=== PATIENT | female | born 1990 | race Caucasian/White ===

== ENCOUNTER 2017-03-13 18:54 | Emergency (ER) | payer OTHER ==
[2017-03-13 19:14] VITALS: BP 125/70; PULSE 77; RESP 18; TEMP 98.6
--- NOTE | 2017-03-13 20:14 | ED ---
Wound/Laceration HPI - General Chief Complaint: Wound/Laceration Stated Complaint: laceration Time Seen by Provider: 03/13/17 19:38 Source: patient Mode of arrival: ambulatory Limitations: no limitations - Related Data Home Medications Medication Instructions Recorded Confirmed Aspirin 81 mg PO DAILY 03/08/14 03/13/17 Allergies Allergy/AdvReac Type Severity Reaction Status Date / Time No Known Allergies Allergy Verified 10/11/14 08:17 Review of Systems ROS Statement: Those systems with pertinent positive or pertinent negative responses have been documented in the HPI. ROS Other: All systems not noted in ROS Statement are negative. Past Medical History Past Medical History: Chest Pain / Angina Additional Past Medical History / Comment(s): tetrology of fallot as , cardiac stent in jul 26, 2011 for reasons of having chest pain History of Any Multi-Drug Resistant Organisms: None Reported Past Surgical History: Heart Catheterization With Stent, Orthopedic Surgery Additional Past Surgical History / Comment(s): heart surgery repair of tetralogy of fallot--infancy (9 days). heart surgery with valve repair at 18 mths. cardiac cath with stent at 2010. left elbow surgery--at 6 yrs of age. oral surgery--at 5 yrs Past Anesthesia/Blood Transfusion Reactions: No Reported Reaction Date of Last Stent Placement:: jul 26, 2011 Past Psychological History: No Psychological Hx Reported Smoking Status: Current every day smoker Past Alcohol Use History: None Reported Past Drug Use History: None Reported - Past Family History Father Family Medical History: No Reported History Additional Family Medical History / Comment(s): back pain Mother Family Medical History: Cancer, Diabetes Mellitus, Hypertension Additional Family Medical History / Comment(s): MRSA, rt below knee amputation General Exam Limitations: no limitations Course Vital Signs 03/13/17 19:10 Temperature 98.6 F Pulse Rate 77 Respiratory 18 Rate Blood Pressure 125/70 O2 Sat by Pulse 95 Oximetry Procedures - Laceration Laceration #1 Site: lower extremity (right coburn) Size (cm): 4 Description: linear Depth: simple, single layer Anesthetic Used: lidocaine 1% Anesthesia Technique: local infiltration Amount (mls): 4 Pre-repair: wound explored, irrigated extensively Type of Sutures: nylon, vicryl Size of Sutures: 5-0 Number of Sutures: 6 Technique: simple, interrupted Patient Tolerated Procedure: well, no complications Disposition Clinical Impression: Laceration of leg, left Disposition: HOME SELF-CARE Condition: Good Instructions: Laceration (ED), Care For Your Stitches (ED) Additional Instructions: Please return to the emergency room in 8-10 days to have sutures removed. Please leave wound covered for the first 24-48 hours and then leave open to air after that time. Please use clean soap and water to clean the suture area to prevent scabbing over the top of your sutures. Please watch for any signs of infection which may include but not limited to increased pain, swelling, redness , fever or chills. Please return to the emergency room if any signs of infection do occur. Please return to the emergency room for any other concerns or complications. Referrals: Brian Cadena DO [Primary Care Provider] - 1-2 days Time of Disposition: 20:13
== END 2017-03-13 20:27 | disposition home or self-care (01) ==
LOC: EC 18:54
DX: S81.812A Laceration without foreign body, left lower leg, initial encounter (principal); W22.03XA Walked into furniture, initial encounter; I20.9 Angina pectoris, unspecified; Z95.5 Presence of coronary angioplasty implant and graft; Z95.2 Presence of prosthetic heart valve; F17.200 Nicotine dependence, unspecified, uncomplicated; Z79.82 Long term (current) use of aspirin
CPT/HCPCS: 12002; 99282

== ENCOUNTER 2017-07-16 12:31 | Inpatient (IN) | payer MEDICARE, OTHER ==
[2017-07-16] MEDS ORDERED: ACETAMINOPHEN IV (For NPO) 1,000 MG in EMPTY BAG 1 BAG IVPB STA (12:50)
[2017-07-16] MEDS ORDERED: ONDANSETRON 4 MG/2 ML VIAL IVP STA (12:50)
--- NOTE | 2017-07-16 12:52 | ED ---
General Adult HPI <Silvestre He - Last Filed: 07/16/17 15:55> - General Source: patient, RN notes reviewed Mode of arrival: ambulatory Limitations: no limitations <Norman Hawkins - Last Filed: 07/16/17 15:58> - General Chief complaint: Abdominal Pain Stated complaint: Abd Pain Time Seen by Provider: 07/16/17 12:45 - History of Present Illness Initial comments: Patient 26-year-old female who presents emergency room today with chief point left-sided abdominal pain over the last 4 days. She describes it as a "sharp" type pain. Patient states is localized more to the left upper quadrant. Patient states never had pain similar to this in the past. She doesn't feeling nauseated. She states she's had some looser bowel movements. She denies any other points her symptoms. Patient denies any recent fever, chills, shortness of breath, chest pain, back pain, vomiting, numbness or tingling, dysuria or hematuria, constipation or diarrhea, headaches or visual changes, or any other complaints. (Norman Hawkins) - Related Data Home Medications Medication Instructions Recorded Confirmed Aspirin 81 mg PO DAILY 03/08/14 07/16/17 Allergies Allergy/AdvReac Type Severity Reaction Status Date / Time No Known Allergies Allergy Verified 07/16/17 13:29 Review of Systems ROS Other: All systems not noted in ROS Statement are negative. <Silvestre He - Last Filed: 07/16/17 15:55> ROS Other: All systems not noted in ROS Statement are negative. <Norman Hawkins - Last Filed: 07/16/17 15:58> ROS Statement: Those systems with pertinent positive or pertinent negative responses have been documented in the HPI. Past Medical History Past Medical History: Chest Pain / Angina Additional Past Medical History / Comment(s): tetrology of fallot as infant, cardiac stent in jul 26, 2011 for reasons of having chest pain History of Any Multi-Drug Resistant Organisms: None Reported Past Surgical History: Heart Catheterization With Stent, Orthopedic Surgery Additional Past Surgical History / Comment(s): heart surgery repair of tetralogy of fallot--infancy (9 days). heart surgery with valve repair at 18 mths. cardiac cath with stent at 2010. left elbow surgery--at 6 yrs of age. oral surgery--at 5 yrs Past Anesthesia/Blood Transfusion Reactions: No Reported Reaction Date of Last Stent Placement:: jul 26, 2011 Past Psychological History: No Psychological Hx Reported Smoking Status: Current every day smoker Past Alcohol Use History: None Reported Past Drug Use History: None Reported - Past Family History Father Family Medical History: No Reported History Additional Family Medical History / Comment(s): back pain Mother Family Medical History: Cancer, Diabetes Mellitus, Hypertension Additional Family Medical History / Comment(s): MRSA, rt below knee amputation <Norman Hawkins - Last Filed: 07/16/17 15:58> General Exam <Silvestre He - Last Filed: 07/16/17 15:55> Limitations: no limitations <Norman Hawkins - Last Filed: 07/16/17 15:58> - General Exam Comments Initial Comments: General: The patient is awake and alert, in no distress, and does not appear acutely ill. Eye: Pupils are equal, round and reactive to light, extra-ocular movements are intact. No nystagmus. There is normal conjunctiva bilaterally. No signs of icterus. Ears, nose, mouth and throat: There are moist mucous membranes and no oral lesions. Neck: The neck is supple, there is no tenderness or JVD. Cardiovascular: There is a regular rate and rhythm. No murmur, rub or gallop is appreciated. Respiratory: Lungs are clear to auscultation, respirations are non-labored, breath sounds are equal. No wheezes, stridor, rales, or rhonchi. Gastrointestinal: Normal appearance of the abdomen. Normal bowel sounds. Soft on palpation. Patient does have tenderness left upper quadrant. No rebound tenderness or guarding. No CVA tenderness. Musculoskeletal: Normal ROM, no tenderness. Strength 5/5. Sensation intact. Pulses equal bilaterally 2+. Neurological: A&O x 3. CN II-XII intact, There are no obvious motor or sensory deficits. Coordination appears grossly intact. Speech is normal. Skin: Skin is warm and dry and no rashes or lesions are noted. Psychiatric: Cooperative, appropriate mood & affect, normal judgment. (Norman Hawkins) Course <Silvestre He - Last Filed: 07/16/17 15:55> <Norman Hawkins - Last Filed: 07/16/17 15:58> Vital Signs 07/16/17 07/16/17 12:32 15:15 Temperature 98.8 F Pulse Rate 104 H 65 Respiratory 18 18 Rate Blood Pressure 131/80 111/67 O2 Sat by Pulse 98 98 Oximetry - Reevaluation(s) Reevaluation #1: 07/16/17 15:55 Patient was reevaluated by myself, Dr. He. Patient is resting comfortably in bed. Mild discomfort left upper abdomen on exam. Patient is updated on results and plan. 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 Case was discussed in detail with Dr. Stewart, who will admit for Dr. Melgar.he does request Zosyn and Vanco. Patient does meet sepsis criteria diagnosed at 1555. (Silvestre He) Medical Decision Making - Lab Data Result diagrams: 07/16/17 13:00 07/16/17 13:00 <Silvestre He - Last Filed: 07/16/17 15:55> - Lab Data Result diagrams: 07/16/17 13:00 07/16/17 13:00 <Norman Hawkins - Last Filed: 07/16/17 15:58> - Lab Data Lab Results 07/16/17 07/16/17 07/16/17 Range/Units 13:00 13:00 13:00 WBC 36.7 H* (3.8-10.6) k/uL RBC 4.61 (3.80-5.40) m/uL Hgb 14.5 (11.4-16.0) gm/dL Hct 44.8 (34.0-46.0) % MCV 97.2 (80.0-100.0) fL MCH 31.4 (25.0-35.0) pg MCHC 32.3 (31.0-37.0) g/dL RDW 12.8 (11.5-15.5) % Plt Count 390 (150-450) k/uL Neutrophils % 87 % Lymphocytes % 5 % Monocytes % 6 % Eosinophils % 1 % Basophils % 1 % Neutrophils # 31.8 H (1.3-7.7) k/uL Lymphocytes # 1.7 (1.0-4.8) k/uL Monocytes # 2.1 H (0-1.0) k/uL Eosinophils # 0.3 (0-0.7) k/uL Basophils # 0.4 H (0-0.2) k/uL Manual Slide Review Performed Toxic Granulation Present Toxic Vacuolation Present Sodium 139 (137-145) mmol/L Potassium 3.4 L (3.5-5.1) mmol/L Chloride 103 (98-107) mmol/L Carbon Dioxide 22 (22-30) mmol/L Anion Gap 14 mmol/L BUN 4 L (7-17) mg/dL Creatinine 0.82 (0.52-1.04) mg/dL Est GFR (MDRD) Af Amer >60 (>60 ml/min/1.73 sqM) Est GFR (MDRD) Non-Af >60 (>60 ml/min/1.73 sqM) Glucose 115 H (74-99) mg/dL Calcium 9.5 (8.4-10.2) mg/dL Total Bilirubin 0.4 (0.2-1.3) mg/dL AST 16 (14-36) U/L ALT 27 (9-52) U/L Alkaline Phosphatase 100 (38-126) U/L Total Protein 8.3 H (6.3-8.2) g/dL Albumin 4.4 (3.5-5.0) g/dL Amylase <30 L (30-110) U/L Lipase 30 (23-300) U/L Urine Color Urine Appearance (Clear) Urine pH (5.0-8.0) Ur Specific [place] (1.001-1.035) Urine Protein (Negative) Urine Glucose (UA) (Negative) Urine Ketones (Negative) Urine Blood (Negative) Urine Nitrite (Negative) Urine Bilirubin (Negative) Urine Urobilinogen (<2.0) mg/dL Ur Leukocyte Esterase (Negative) Urine RBC (0-5) /hpf Urine WBC (0-5) /hpf Ur Squamous Epith Cells (0-4) /hpf Amorphous Sediment (None) /hpf Urine Bacteria (None) /hpf Urine Mucus (None) /hpf Urine HCG, Qual Not Detected (Not Detectd) 07/16/17 Range/Units 13:00 WBC (3.8-10.6) k/uL RBC (3.80-5.40) m/uL Hgb (11.4-16.0) gm/dL Hct (34.0-46.0) % MCV (80.0-100.0) fL MCH (25.0-35.0) pg MCHC (31.0-37.0) g/dL RDW (11.5-15.5) % Plt Count (150-450) k/uL Neutrophils % % Lymphocytes % % Monocytes % % Eosinophils % % Basophils % % Neutrophils # (1.3-7.7) k/uL Lymphocytes # (1.0-4.8) k/uL Monocytes # (0-1.0) k/uL Eosinophils # (0-0.7) k/uL Basophils # (0-0.2) k/uL Manual Slide Review Toxic Granulation Toxic Vacuolation Sodium (137-145) mmol/L Potassium (3.5-5.1) mmol/L Chloride (98-107) mmol/L Carbon Dioxide (22-30) mmol/L Anion Gap mmol/L BUN (7-17) mg/dL Creatinine (0.52-1.04) mg/dL Est GFR (MDRD) Af Amer (>60 ml/min/1.73 sqM) Est GFR (MDRD) Non-Af (>60 ml/min/1.73 sqM) Glucose (74-99) mg/dL Calcium (8.4-10.2) mg/dL Total Bilirubin (0.2-1.3) mg/dL AST (14-36) U/L ALT (9-52) U/L Alkaline Phosphatase (38-126) U/L Total Protein (6.3-8.2) g/dL Albumin (3.5-5.0) g/dL Amylase (30-110) U/L Lipase (23-300) U/L Urine Color Yellow Urine Appearance Turbid H (Clear) Urine pH 6.0 (5.0-8.0) Ur Specific [place] 1.036 H (1.001-1.035) Urine Protein 2+ H (Negative) Urine Glucose (UA) Negative (Negative) Urine Ketones Negative (Negative) Urine Blood Small H (Negative) Urine Nitrite Negative (Negative) Urine Bilirubin 1+ H (Negative) Urine Urobilinogen 3.0 (<2.0) mg/dL Ur Leukocyte Esterase Negative (Negative) Urine RBC 1 (0-5) /hpf Urine WBC 1 (0-5) /hpf Ur Squamous Epith Cells 1 (0-4) /hpf Amorphous Sediment Rare H (None) /hpf Urine Bacteria Rare H (None) /hpf Urine Mucus Rare H (None) /hpf Urine HCG, Qual (Not Detectd) Disposition <Silvestre He - Last Filed: 07/16/17 15:55> Time of Disposition: 15:58 <Norman Hawkins - Last Filed: 07/16/17 15:58> Clinical Impression: Colitis, Leukocytosis Disposition: ADMITTED IP TO THIS HOSP Condition: Stable Referrals: Brian Cadena DO [Primary Care Provider] - 1-2 days
[2017-07-16 13:18] LABS: Basophils # (A) 0.4 k/uL (0-0.2); Basophils % (A) 1 %; CH 32.2; CHCM 33.3; Eosinophils # (A) 0.3 k/uL (0-0.7); Eosinophils % (A) 1 %; HCT 44.8 % (34.0-46.0); HDW 2.48; HGB 14.5 gm/dL (11.4-16.0); Luc # (Auto) 0.51; Luc % (Auto) 1; Lymphocytes # (A) 1.7 k/uL (1.0-4.8); Lymphocytes % (A) 5 %; MCH 31.4 pg (25.0-35.0); MCHC 32.3 g/dL (31.0-37.0); MCV 97.2 fL (80.0-100.0); Mean Platelet Volume 6.5; Monocytes # (A) 2.1 k/uL (0-1.0); Monocytes % (A) 6 %; Neutrophils # (A) 31.8 k/uL (1.3-7.7); Neutrophils % (A) 87 %; RBC 4.61 m/uL (3.80-5.40); RDW 12.8 % (11.5-15.5); WBC (Perox) 33.62
--- NOTE | 2017-07-16 13:18 | XR ---
EXAMINATION TYPE: XR KUB DATE OF EXAM: 07/16/2017 1:11 PM CLINICAL HISTORY: Abdominal pain for 5 days TECHNIQUE: Single supine KUB image of the abdomen is obtained. COMPARISON: None. FINDINGS: Scattered gas is seen in non-distended small bowel loops. Overall there is a possibility of gas within the upper abdomen. Gas and fecal material is seen in non-distended colon. Dystrophic calc ifications are seen within the right lateral pelvis, likely from degenerative fibroids. No abnormal c alcifications are seen within the abdomen to indicate nephrolithiasis or cholelithiasis. Lung bases a re clear and the osseous structures are intact. IMPRESSION: Nonspecific paucity of bowel gas with no radiographic evidence of obstruction.
[2017-07-16 13:21] LABS: ALT 27 U/L (9-52); AST 16 U/L (14-36); Alkaline Phosphatase 100 U/L (38-126); Amylase <30 U/L (30-110); Anion Gap 14 mmol/L; Blood Urea Nitrogen 4 mg/dL (7-17); Calcium 9.5 mg/dL (8.4-10.2); Carbon Dioxide 22 mmol/L (22-30); Chloride 103 mmol/L (98-107); Glucose 115 mg/dL (74-99); Non-African American GFR(MDRD) >60 (>60 ml/min/1.73 sqM); Potassium 3.4 mmol/L (3.5-5.1); Sodium 139 mmol/L (137-145); Total Bilirubin 0.4 mg/dL (0.2-1.3); Total Protein 8.3 g/dL (6.3-8.2)
[2017-07-16 13:23] LABS: WBC 36.7 k/uL (3.8-10.6)
[2017-07-16 13:54] LABS: Amorphous Sediment,Urine Rare /hpf; Appearance,Urine Turbid (Clear); Bacteria,Urine Rare /hpf; Bilirubin,Urine 1+ (Negative); Glucose,Urine (UA) Negative (Negative); Ketones,Urine Negative (Negative); Leukocyte Esterase,Urine Negative (Negative); Mucus,Urine Rare /hpf; Nitrite,Urine Negative (Negative); Particle Count 2297; Protein,Urine 2+ (Negative); RBC,Urine 1 /hpf (0-5); Specific Gravity,Urine 1.036 (1.001-1.035); Squamous Epithelial Cell,Urine 1 /hpf (0-4); UA Billing (MACRO vs. MICRO) MICRO; WBC,Urine 1 /hpf (0-5)
[2017-07-16] MEDS ORDERED: RX INFO: IV CONTRAST WAS GIVEN 1 EACH MISC MISCELLANE PRN (13:57)
[2017-07-16 14:04] LABS: Manual Review Performed; Toxic Granulation Present; Toxic Vacuolation Present
--- NOTE | 2017-07-16 15:05 | XR ---
EXAMINATION TYPE: XR chest 2V DATE OF EXAM: 07/16/2017 COMPARISON: 11/08/2005 HISTORY: Left-sided abdominal pain. History of tetralogy of Fallot. TECHNIQUE: Frontal and lateral views of the chest are obtained. FINDINGS: There is no focal air space opacity, pleural effusion, or pneumothorax seen. Median shelton otomy wires and endovascular stent are present. Stent has been placed in the interim. The cardiac benedict houette size is within normal limits. The osseous structures are intact. IMPRESSION: No acute cardiopulmonary process.
--- NOTE | 2017-07-16 15:16 | CT ---
EXAMINATION TYPE: CT abdomen pelvis w con DATE OF EXAM: 07/16/2017 COMPARISON: Plain film same date HISTORY: Left sided pain for [address] DLP: 473.2 mGycm Automated exposure control for dose reduction was used. TECHNIQUE: Helical acquisition of images from the lung bases through the pelvis have been completed. CONTRAST: Performed without Oral Contrast and with IV Contrast, patient injected with 100 mL of Omnipaque 300. FINDINGS: LUNG BASES: No significant abnormality is appreciated. AORTA: No significant abnormality is appreciated. LIVER/GB: No significant abnormality is evident within the gallbladder. Anterior aspect of the left l obe of liver shows a focal area of low-attenuation and measures approximately 2.8 x 2.5 cm in size.. PANCREAS: No significant abnormality is seen. SPLEEN: Spleen is absent. ADRENALS: No significant abnormality is seen. KIDNEYS: No significant abnormality is seen. REPRODUCTIVE ORGANS: Left ovarian cyst is suspected measuring approximately 18 mm. BOWEL: Abnormal thickening of the colon is noted, there is suggestion of pericolonic inflammatory ch geovany and there is fluid-filled appearance of the transverse colon. Transverse colon is deep within th e pelvis. FREE AIR: No Free Air visible. ASCITES: None visible. PELVIC ADENOPATHY: None visualized. RETROPERITONEAL ADENOPATHY: No Retroperitoneal Adenopathy visible. URINARY BLADDER: No significant abnormality is seen. OSSEOUS STRUCTURES: No significant abnormality is seen. IMPRESSION: CORRELATE FOR COLITIS. CORRELATE FOR SPLENECTOMY AND PRIOR SURGERY VERSUS ABSENT SPLEEN. INDETERMINAT E LOW-ATTENUATION FOCUS WITHIN THE LIVER OF QUESTIONABLE CLINICAL SIGNIFICANCE, LIVER ULTRASOUND OR M RI MAY BE OF BENEFIT.
[2017-07-16] MEDS ORDERED: VANCOMYCIN IV PER PHARMACY 1 EACH MISC MISCELLANE PRN (15:57)
[2017-07-16] MEDS ORDERED: PIPERACILLIN-TAZOBACTAM 3.375 GM in DEXTROSE/WATER 1 50ML.BAG IVPB STA (15:57)
[2017-07-16] MEDS ORDERED: NALOXONE 0.4 MG/ML 1 ML VIAL IV PRN (15:59)
[2017-07-16] MEDS ORDERED: HYDROmorphone 1 MG/ML 1 ML SYRINGE IVP PRN (15:59)
[2017-07-16] MEDS ORDERED: VANCOMYCIN 1,750 MG in SODIUM CHLORIDE 0.9% 250 ML IVPB ONE (20:00)
[2017-07-16] MEDS: ONDANSETRON 4 MG/2 ML VIAL IVP PRN (20:30)
[2017-07-16] MEDS: PIPERACILLIN-TAZOBACTAM 3.375 GM in DEXTROSE/WATER 1 50ML.BAG IVPB SCH (23:30)
[2017-07-17] MEDS: ACETAMINOPHEN TAB 325 MG TAB PO PRN ×2 (02:32→15:29)
[2017-07-17] MEDS ORDERED: VANCOMYCIN 1,250 MG in SODIUM CHLORIDE 0.9% 250 ML IVPB SCH ×2 (04:00→16:00)
[2017-07-17 06:41] LABS: Basophils # (A) 0.1 k/uL (0-0.2); Basophils % (A) 0 %; CH 31.9; CHCM 32.7; Eosinophils # (A) 0.3 k/uL (0-0.7); Eosinophils % (A) 1 %; HDW 2.49; HGB 13.5 gm/dL (11.4-16.0); Luc # (Auto) 0.63; Luc % (Auto) 2; Lymphocytes # (A) 2.1 k/uL (1.0-4.8); Lymphocytes % (A) 7 %; MCH 31.6 pg (25.0-35.0); MCHC 32.2 g/dL (31.0-37.0); Mean Platelet Volume 6.3; Monocytes # (A) 1.5 k/uL (0-1.0); Monocytes % (A) 5 %; Neutrophils # (A) 27.1 k/uL (1.3-7.7); Neutrophils % (A) 86 %; RBC 4.28 m/uL (3.80-5.40); RDW 12.8 % (11.5-15.5); WBC (Perox) 29.74
[2017-07-17] MEDS: ONDANSETRON 4 MG/2 ML VIAL IVP PRN ×3 (06:41→22:31)
[2017-07-17 06:45] LABS: WBC 31.7 k/uL (3.8-10.6)
[2017-07-17 06:52] LABS: Calcium 8.7 mg/dL (8.4-10.2); Potassium 3.6 mmol/L (3.5-5.1); Total Bilirubin 0.4 mg/dL (0.2-1.3); Total Protein 6.8 g/dL (6.3-8.2)
[2017-07-17] MEDS: PIPERACILLIN-TAZOBACTAM 3.375 GM in DEXTROSE/WATER 1 50ML.BAG IVPB SCH ×2 (07:55→16:16)
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
--- NOTE | 2017-07-17 13:38 | P.HPIM ---
History of Present Illness H&P Date: 07/16/17 Chief Complaint: Abdominal pain Patient is a 26-year-old female with a known history of tetralogy of fallot presents emergency room today with chief point left-sided abdominal pain over the last 4 days. She describes it as a "sharp" type pain. Patient states is localized more to the left upper quadrant. Patient states never had pain similar to this in the past. Patient denied any fever otherwise patient does have cold sweats. She doesn't feeling nauseated. She states she's had some looser bowel movements. She denies any other points her symptoms. Patient denies any recent fever, chills, shortness of breath, chest pain, back pain, vomiting, numbness or tingling, dysuria or hematuria, constipation or diarrhea, headaches or visual changes, or any other complaints. No recent travel or sick contacts. No history of prior EGD or colonoscopy Patient denied any chest pain or shortness of breath. CT of the abdomen pelvis showed correlated for colitis. Correlate for splenectomy and prior surgery versus absent spleen. Review of Systems Constitutional: Patient denies any fever . Patient does have cold sweats . No generalized weakness or weight loss. Abdomen: Ration does have left upper quadrant pain. No nausea no vomiting.. Cardiovascular: Patient denies any chest pain or short of breath no palpitations. Respiratory: patient denied any cough is from production. No shortness of breath Neurologic: Patient denied any numbness or tingling headache. Musculoskeletal: Patient denies any complaints of joint swelling or deformity. Skin: Negative Psychiatric: Negative Endocrine: No heat or cold intolerance. No recent weight gain. Genitourinary: No dysuria or hematuria. All other 14 point ROS negative except the above Past Medical History Past Medical History: Chest Pain / Angina Additional Past Medical History / Comment(s): tetrology of fallot as , cardiac stent in jul 26, 2011 for reasons of having chest pain History of Any Multi-Drug Resistant Organisms: None Reported Past Surgical History: Heart Catheterization With Stent, Orthopedic Surgery Additional Past Surgical History / Comment(s): heart surgery repair of tetralogy of fallot--infancy (9 days). heart surgery with valve repair at 18 mths. cardiac cath with stent at 2010. left elbow surgery--at 6 yrs of age. oral surgery--at 5 yrs Past Anesthesia/Blood Transfusion Reactions: No Reported Reaction, Motion Sickness Date of Last Stent Placement:: jul 26, 2011 Smoking Status: Current every day smoker - Past Family History Father Family Medical History: No Reported History Additional Family Medical History / Comment(s): back pain Mother Family Medical History: Cancer, Diabetes Mellitus, Hypertension Additional Family Medical History / Comment(s): MRSA, rt below knee amputation Medications and Allergies Home Medications Medication Instructions Recorded Confirmed Type Aspirin 81 mg PO DAILY 03/08/14 07/16/17 History Allergies Allergy/AdvReac Type Severity Reaction Status Date / Time No Known Allergies Allergy Verified 07/16/17 20:44 Physical Exam Vitals: Vital Signs Temp Pulse Pulse Resp BP BP Pulse Ox 07/16/17 18:22 98.7 F 92 20 119/74 98 07/16/17 17:36 98.6 F 84 18 109/64 98 07/16/17 16:00 76 18 131/84 97 07/16/17 15:15 65 18 111/67 98 07/16/17 12:32 98.8 F 104 H 18 131/80 98 Intake and Output 07/16/17 07/16/17 07/16/17 06:59 14:59 22:59 Other: Weight 71.214 kg Patient Weight 07/17/17 06:59 Weight 71.214 kg PHYSICAL EXAMINATION: Patient is lying in the bed comfortably, no acute distress, awake alert and oriented.. HEENT: Normocephalic. Neck is supple. Pupils reactive. Nostrils clear. Oral cavity is moist. Ears reveal no drainage. Neck reveals no JVD, carotid bruits, or thyromegaly. CHEST EXAMINATION: Trachea is central. Symmetrical expansion. Lung canchola clear to auscultation and percussion. CARDIAC: Normal S1, S2 with no gallops. No murmurs ABDOMEN: Soft. Mild left-sided abdominal tenderness. No guarding no rigidity. Bowel sounds normal. No organomegaly. No abdominal bruits. Extremities: reveal no edema. No clubbing or cyanosis Neurologically awake, alert, oriented x3 with well-coordinated movements. No focal deficits noted Skin: No rash or skin lesions. Psychiatric: Coperative. Nonsuicidal Musculoskeletal: No joint swelling or deformity. Normal range of motion. Results CBC & Chem 7: 07/17/17 06:25 07/17/17 06:25 Labs: Abnormal Lab Results - Last 24 Hours (Table) 07/16/17 07/16/17 07/16/17 Range/Units 13:00 13:00 13:00 WBC 36.7 H* (3.8-10.6) k/uL Neutrophils # 31.8 H (1.3-7.7) k/uL Monocytes # 2.1 H (0-1.0) k/uL Basophils # 0.4 H (0-0.2) k/uL Potassium 3.4 L (3.5-5.1) mmol/L BUN 4 L (7-17) mg/dL Glucose 115 H (74-99) mg/dL Total Protein 8.3 H (6.3-8.2) g/dL Amylase <30 L (30-110) U/L Urine Appearance Turbid H (Clear) Ur Specific [place] 1.036 H (1.001-1.035) Urine Protein 2+ H (Negative) Urine Blood Small H (Negative) Urine Bilirubin 1+ H (Negative) Amorphous Sediment Rare H (None) /hpf Urine Bacteria Rare H (None) /hpf Urine Mucus Rare H (None) /hpf Thrombosis Risk Factor Assmnt - DVT/VTE Prophylaxis DVT/VTE Prophylaxis: Pharmacologic Prophylaxis ordered Assessment and Plan Assessment: #1 sepsis secondary to colitis possible infectious versus inflammatory #2 significant leukocytosis #3 Aspleenia, possibly congenital along with congenital heart disease #4 tetralogy of Fallot 5 history of PCI in 2010 #6 hypokalemia Plan: Patient will be continued on broad-spectrum antibiotics in the form of Zosyn and vancomycin. We will continue the antibiotics with patient being asplenia and to cover encapsulated organisms. GI consult and IV fluids and follow closely. Further recommendations based on the clinical course. Discussed with patient's father in detail. Time with Patient: Greater than 30
[2017-07-17] MEDS ORDERED: KETOROLAC 30 MG/ML 1 ML VIAL IVP PRN (16:00)
[2017-07-17] MEDS ORDERED: diphenhydrAMINE 50 MG/ML 1 ML VIAL IVP ONE (16:00)
[2017-07-17] MEDS: SODIUM CHLORIDE 0.9% 1,000 ML IV SCH (22:26)
--- NOTE | 2017-07-17 23:42 | P.PN ---
Subjective Progress Note Date: 07/17/17 Principal diagnosis: Acute colitis Patient is a 26-year-old female with a known history of tetralogy of fallot presents emergency room today with chief point left-sided abdominal pain over the last 4 days. She describes it as a "sharp" type pain. Patient states is localized more to the left upper quadrant. Patient states never had pain similar to this in the past. Patient denied any fever otherwise patient does have cold sweats. She doesn't feeling nauseated. She states she's had some looser bowel movements. She denies any other points her symptoms. Patient denies any recent fever, chills, shortness of breath, chest pain, back pain, vomiting, numbness or tingling, dysuria or hematuria, constipation or diarrhea, headaches or visual changes, or any other complaints. No recent travel or sick contacts. No history of prior EGD or colonoscopy Patient denied any chest pain or shortness of breath. CT of the abdomen pelvis showed correlated for colitis. Correlate for splenectomy and prior surgery versus absent spleen. 07/17/2017 Patient today complaining of abdominal pain. Improved in the morning but is still having pain now. Patient has been afebrile. Patient says that she felt nauseated with the antibiotics. Otherwise patient did not have any diarrhea. C. diff toxin negative. Leukocytosis improving toda but still significantly elevated. Patient was seen by gastroenterology. Patient does have nausea and one episode of vomiting. No chest pain no shortness of breath. All other review of systems negative except the above Current medications reviewed. Objective - Vital Signs Vital signs: Vital Signs Temp 98.2 F 07/17/17 20:30 Pulse 66 07/17/17 20:30 Resp 20 07/17/17 20:30 BP 116/63 07/17/17 20:30 Pulse Ox 96 07/17/17 20:30 Intake & Output 07/17/17 07/17/17 07/18/17 06:59 18:59 06:59 Intake Total 60 Output Total 50 Balance 60 -50 Intake: Oral 60 Output: Stool 50 Other: Voiding Method Toilet # Voids 2 1 1 # Bowel Movements 1 - Exam PHYSICAL EXAMINATION: Patient is lying in the bed comfortably, no acute distress, awake alert and oriented.. HEENT: Normocephalic. Neck is supple. Pupils reactive. Nostrils clear. Oral cavity is moist. Ears reveal no drainage. Neck reveals no JVD, carotid bruits, or thyromegaly. CHEST EXAMINATION: Trachea is central. Symmetrical expansion. Lung canchola clear to auscultation and percussion. CARDIAC: Normal S1, S2 with no gallops. No murmurs ABDOMEN: Soft. Left upper quadrant tenderness mild. No guarding no rigidity. Bowel sounds normal. No organomegaly. No abdominal bruits. Extremities: reveal no edema. No clubbing or cyanosis Neurologically awake, alert, oriented x3 with well-coordinated movements. No focal deficits noted Skin: No rash or skin lesions. Psychiatric: Cooperative. Nonsuicidal Musculoskeletal: No joint swelling or deformity. Normal range of motion. - Labs CBC & Chem 7: 07/17/17 06:25 07/17/17 06:25 Labs: Abnormal Lab Results - Last 24 Hours (Table) 07/17/17 07/17/17 07/17/17 Range/Units 06:25 06:25 06:25 WBC 31.7 H* (3.8-10.6) k/uL Neutrophils # 27.1 H (1.3-7.7) k/uL Monocytes # 1.5 H (0-1.0) k/uL ESR 33 H (0-20) mm/hr Carbon Dioxide 21 L (22-30) mmol/L Creatinine 1.36 H (0.52-1.04) mg/dL C-Reactive Protein (<10.0) mg/L 07/17/17 Range/Units 06:25 WBC (3.8-10.6) k/uL Neutrophils # (1.3-7.7) k/uL Monocytes # (0-1.0) k/uL ESR (0-20) mm/hr Carbon Dioxide (22-30) mmol/L Creatinine (0.52-1.04) mg/dL C-Reactive Protein 79.3 H (<10.0) mg/L Microbiology - Last 24 Hours (Table) 07/16/17 16:23 Blood Culture - Preliminary Blood No Growth after 24 hours Assessment and Plan Assessment: #1 sepsis secondary to colitis possible infectious versus inflammatory #2 significant leukocytosis #3 Aspleenia, possibly congenital along with congenital heart disease #4 tetralogy of Fallot 5 history of PCI in 2010 #6 hypokalemia #7 acute kidney injury with creatinine increased to 1.3 today. Plan: Patient will be continued on broad-spectrum antibiotics in the form of Zosyn and vancomycin. We will continue the antibiotics with patient being asplenia and to cover encapsulated organisms. Continue Zosyn . We will hold vancomycin due to worsening renal function. ID consulted. GI is following. Continue with IV fluids and follow closely. Further recommendations based on the clinical course. Discussed with patient's grandmother at bedside in detail. Time with Patient: Greater than 30
[2017-07-18] MEDS: PIPERACILLIN-TAZOBACTAM 3.375 GM in DEXTROSE/WATER 1 50ML.BAG IVPB SCH ×2 (00:29→08:47)
[2017-07-18 06:41] LABS: Basophils # (A) 0.2 k/uL (0-0.2); Basophils % (A) 1 %; CH 31.2; CHCM 31.6; Eosinophils # (A) 0.2 k/uL (0-0.7); Eosinophils % (A) 1 %; HCT 41.2 % (34.0-46.0); HDW 2.44; HGB 12.9 gm/dL (11.4-16.0); Luc # (Auto) 0.43; Luc % (Auto) 2; Lymphocytes # (A) 1.6 k/uL (1.0-4.8); Lymphocytes % (A) 6 %; MCH 31.2 pg (25.0-35.0); MCHC 31.3 g/dL (31.0-37.0); MCV 99.5 fL (80.0-100.0); Mean Platelet Volume 6.8; Monocytes # (A) 1.6 k/uL (0-1.0); Monocytes % (A) 6 %; Neutrophils # (A) 24.5 k/uL (1.3-7.7); Neutrophils % (A) 86 %; RBC 4.14 m/uL (3.80-5.40); RDW 14.4 % (11.5-15.5); WBC (Perox) 29.31
[2017-07-18 06:46] LABS: WBC 28.5 k/uL (3.8-10.6)
[2017-07-18] MEDS: SODIUM CHLORIDE 0.9% 1,000 ML IV SCH ×2 (06:48→12:49)
[2017-07-18] MEDS: ACETAMINOPHEN TAB 325 MG TAB PO PRN (11:59)
[2017-07-18] MEDS: ONDANSETRON 4 MG/2 ML VIAL IVP PRN ×2 (12:02→17:49)
--- NOTE | 2017-07-18 12:19 | P.PN ---
Subjective Progress Note Date: 07/18/17 Principal diagnosis: colitis 26-year-old female admitted with suspected infectious colitis possible underlying inflammatory bowel disease with reported history of Crohn's disease diagnosed 3-4 years ago. Patient feels better. Loose nonbloody bowel movements. Minimal abdominal pain. Afebrile. C. diff negative. Fecal leukocytes positive. Sed rate 72. White count 28,000. Objective - Vital Signs Vital signs: Vital Signs Temp 97.5 F L 07/18/17 11:33 Pulse 65 07/18/17 11:33 Resp 20 07/18/17 11:33 BP 123/67 07/18/17 11:33 Pulse Ox 99 07/18/17 11:33 Intake & Output 07/17/17 07/18/17 07/18/17 18:59 06:59 18:59 Intake Total 60 300 150 Output Total 920 Balance 60 -620 150 Intake: Oral 60 300 150 Output: Stool 800 Emesis 120 Other: Voiding Method Toilet Toilet Toilet # Voids 1 1 - Exam General appearance: The patient is alert, oriented, in no acute distress. HET: Head is normocephalic and atraumatic. Pupils are equal and reactive. Oropharynx is clear without lesions. Neck: Supple without lymphadenopathy. Trachea midline. Heart: S1 S2. Regular rate and rhythm. Lungs: No crackles or wheezes are heard. Abdomen: Soft, nontender, nondistended with bowel sounds. No peritoneal signs. No palpable organomegaly or masses. Extremities: Normal skin color and turgor. No cyanosis, rash, ulceration, clubbing, or edema. Radial and pedal pulses are 2/4 bilaterally. Neurological: No focal deficits. Strength and sensation are grossly intact. - Labs CBC & Chem 7: 07/18/17 06:26 07/17/17 06:25 Labs: Abnormal Lab Results - Last 24 Hours (Table) 07/17/17 07/18/17 Range/Units 06:25 06:26 WBC 28.5 H* (3.8-10.6) k/uL Neutrophils # 24.5 H (1.3-7.7) k/uL Monocytes # 1.6 H (0-1.0) k/uL ESR 33 H (0-20) mm/hr Microbiology - Last 24 Hours (Table) 07/17/17 09:28 Stool for WBCs - Final Stool 07/17/17 09:28 Stool Culture - Preliminary Stool 07/16/17 16:23 Blood Culture - Preliminary Blood No Growth after 24 hours Assessment and Plan (1) Colitis Narrative/Plan: Sirs possible sepsis. Etiology of colitis possible ischemic possible infectious possible inflammatory possible combination of more than one factor. Reported history of Crohn's disease without endoscopy. Current Visit: Yes Status: Acute Code(s): K52.9 - NONINFECTIVE GASTROENTERITIS AND COLITIS, UNSPECIFIED SNOMED Code(s): 83906411 (2) Leukocytosis Current Visit: Yes Status: Acute Code(s): D72.829 - ELEVATED WHITE BLOOD CELL COUNT, UNSPECIFIED SNOMED Code(s): 834020706 (3) Fever Current Visit: Yes Status: Acute Code(s): R50.9 - FEVER, UNSPECIFIED SNOMED Code(s): 266722918 Plan: 1. Dr. Isaac requested discontinuance of vancomycin and Zosyn change to Cipro Flagyl. 2. ID evaluation. 3. Inpatient colonoscopy will not be pursued at this time; outpatient endoscopy discussed. Will advance diet as tolerated. 4. Additional stool studies pending. 5. CBC in a.m. Assessment and plan a care discussed with Dr. Isaac
[2017-07-18] MEDS: CIPROFLOXACIN HCL 500 MG TAB PO SCH ×2 (12:49→21:02)
[2017-07-18] MEDS: metroNIDAZOLE 500 MG TAB PO SCH ×2 (15:40→22:08)
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
--- NOTE | 2017-07-18 22:54 | P.PN ---
Subjective Progress Note Date: 07/18/17 Principal diagnosis: Acute colitis Patient is a 26-year-old female with a known history of tetralogy of fallot presents emergency room today with chief point left-sided abdominal pain over the last 4 days. She describes it as a "sharp" type pain. Patient states is localized more to the left upper quadrant. Patient states never had pain similar to this in the past. Patient denied any fever otherwise patient does have cold sweats. She doesn't feeling nauseated. She states she's had some looser bowel movements. She denies any other points her symptoms. Patient denies any recent fever, chills, shortness of breath, chest pain, back pain, vomiting, numbness or tingling, dysuria or hematuria, constipation or diarrhea, headaches or visual changes, or any other complaints. No recent travel or sick contacts. No history of prior EGD or colonoscopy Patient denied any chest pain or shortness of breath. CT of the abdomen pelvis showed correlated for colitis. Correlate for splenectomy and prior surgery versus absent spleen. 07/17/2017 Patient today complaining of abdominal pain. Improved in the morning but is still having pain now. Patient has been afebrile. Patient says that she felt nauseated with the antibiotics. Otherwise patient did not have any diarrhea. C. diff toxin negative. Leukocytosis improving toda but still significantly elevated. Patient was seen by gastroenterology. Patient does have nausea and one episode of vomiting. No chest pain no shortness of breath. 07/18/2017 Patient's abdominal pain is much improved now. No complaints of nausea or vomiting. No fever no chills. Antibiotics have been changed to Levaquin and Flagyl. Patient is ambulating in the hallway. No comments of chest pain or short of breath. Patient still having severe leukocytosis All other review of systems negative except the above Current medications reviewed. Objective - Vital Signs Vital signs: Vital Signs Temp 98.3 F 07/18/17 21:04 Pulse 65 07/18/17 21:04 Resp 16 07/18/17 21:04 BP 133/79 07/18/17 21:04 Pulse Ox 96 07/18/17 21:04 Intake & Output 07/18/17 07/18/17 07/19/17 06:59 18:59 06:59 Intake Total 300 300 Output Total 920 50 200 Balance -620 250 -200 Intake: Oral 300 300 Output: Stool 800 50 200 Emesis 120 Other: Voiding Method Toilet Toilet Toilet # Voids 1 - Exam PHYSICAL EXAMINATION: Patient is lying in the bed comfortably, no acute distress, awake alert and oriented.. HEENT: Normocephalic. Neck is supple. Pupils reactive. Nostrils clear. Oral cavity is moist. Ears reveal no drainage. Neck reveals no JVD, carotid bruits, or thyromegaly. CHEST EXAMINATION: Trachea is central. Symmetrical expansion. Lung canchola clear to auscultation and percussion. CARDIAC: Normal S1, S2 with no gallops. No murmurs ABDOMEN: Soft. Nontender No guarding no rigidity. Bowel sounds normal. No organomegaly. No abdominal bruits. Extremities: reveal no edema. No clubbing or cyanosis Neurologically awake, alert, oriented x3 with well-coordinated movements. No focal deficits noted Skin: No rash or skin lesions. Psychiatric: Cooperative. Nonsuicidal Musculoskeletal: No joint swelling or deformity. Normal range of motion. - Labs CBC & Chem 7: 07/18/17 06:26 07/17/17 06:25 Labs: Abnormal Lab Results - Last 24 Hours (Table) 07/18/17 Range/Units 06:26 WBC 28.5 H* (3.8-10.6) k/uL Neutrophils # 24.5 H (1.3-7.7) k/uL Monocytes # 1.6 H (0-1.0) k/uL Microbiology - Last 24 Hours (Table) 07/16/17 16:23 Blood Culture - Preliminary Blood No Growth after 48 hours 07/17/17 09:28 Stool for WBCs - Final Stool 07/17/17 09:28 Stool Culture - Preliminary Stool Assessment and Plan Assessment: #1 sepsis secondary to colitis possible infectious versus inflammatory #2 significant leukocytosis #3 Aspleenia, possibly congenital along with congenital heart disease #4 tetralogy of Fallot 5 history of PCI in 2010 #6 hypokalemia #7 acute kidney injury with creatinine increased to 1.3 today. Plan: Patient will be continued on broad-spectrum antibiotics in the form of Zosyn . Changed to Levaquin and Flagyl.. We will continue the antibiotics with patient being asplenia and to cover encapsulated organisms. ID consulted. GI is following. Continue with IV fluids and follow closely. Further recommendations based on the clinical course.
[2017-07-19] MEDS: SODIUM CHLORIDE 0.9% 1,000 ML IV SCH ×2 (00:35→09:41)
[2017-07-19] MEDS: ONDANSETRON 4 MG/2 ML VIAL IVP PRN ×2 (06:59→17:31)
[2017-07-19 07:10] LABS: Basophils # (A) 0.1 k/uL (0-0.2); Basophils % (A) 0 %; CH 30.6; CHCM 31.2; Eosinophils # (A) 0.1 k/uL (0-0.7); Eosinophils % (A) 0 %; HCT 38.6 % (34.0-46.0); HDW 2.52; HGB 12.2 gm/dL (11.4-16.0); Hypochromasia Slight; Luc # (Auto) 0.42; Luc % (Auto) 2; Lymphocytes # (A) 1.4 k/uL (1.0-4.8); Lymphocytes % (A) 7 %; MCH 31.3 pg (25.0-35.0); MCHC 31.7 g/dL (31.0-37.0); MCV 98.6 fL (80.0-100.0); Mean Platelet Volume 7.3; Monocytes # (A) 1.4 k/uL (0-1.0); Monocytes % (A) 7 %; Neutrophils # (A) 18.6 k/uL (1.3-7.7); Neutrophils % (A) 84 %; RBC 3.91 m/uL (3.80-5.40); RDW 13.9 % (11.5-15.5); WBC 22.1 k/uL (3.8-10.6); WBC (Perox) 22.31
[2017-07-19 07:23] LABS: Calcium 8.2 mg/dL (8.4-10.2); Potassium 3.4 mmol/L (3.5-5.1)
[2017-07-19 08:52] LABS: Appearance,Urine Cloudy (Clear); Bilirubin,Urine Negative (Negative); Glucose,Urine (UA) Negative (Negative); Ketones,Urine Negative (Negative); Leukocyte Esterase,Urine Small (Negative); Nitrite,Urine Negative (Negative); Particle Count 3137; Protein,Urine 2+ (Negative); RBC,Urine 2 /hpf (0-5); Specific Gravity,Urine 1.007 (1.001-1.035); Squamous Epithelial Cell,Urine 21 /hpf (0-4); UA Billing (MACRO vs. MICRO) MICRO; Urobilinogen,Urine <2.0 mg/dL (<2.0); WBC,Urine 7 /hpf (0-5)
[2017-07-19 09:03] LABS: Calcium 8.1 mg/dL (8.4-10.2); Potassium 3.3 mmol/L (3.5-5.1)
--- NOTE | 2017-07-19 09:14 | US ---
EXAMINATION TYPE: US kidneys/renal and bladder DATE OF EXAM: 07/19/2017 COMPARISON: NONE CLINICAL HISTORY: critical serum creatinine, elevated BUN. EXAM MEASUREMENTS: Right Kidney: 11.4 x 6.0 x 6.0 cm Left Kidney: 10.0 x 6.7 x 6.9 cm Right Kidney: No hydronephrosis or masses seen Left Kidney: Appears slightly edematous Bladder: Not distended Bilateral Jets seen: No, bladder is not distended There are no renal masses, renal calculi or hydronephrosis. The bladder is not distended. Neither ure teral jet was visualized. IMPRESSION: NO ACUTE RENAL ABNORMALITY.
[2017-07-19] MEDS: CIPROFLOXACIN HCL 500 MG TAB PO SCH ×2 (09:41→21:43)
[2017-07-19] MEDS: metroNIDAZOLE 500 MG TAB PO SCH ×3 (09:41→21:43)
[2017-07-19] MEDS ORDERED: POTASSIUM CHLORIDE ER 20 MEQ TAB.ER PO STA (11:08)
--- NOTE | 2017-07-19 11:16 | P.NPCON ---
History of Present Illness - Reason for Consult acute renal failure - History of Present Illness Reason for consultation: Acute kidney injury History of present illness: Patient is a 26-year-old female seen in renal consultation for acute kidney injury. Her baseline creatinine is 1 and is elevated at 6.75 today. Patient presented to the hospital with abdominal pain along with vomiting and diarrhea for about 2-3 day duration prior to admission. She underwent a CAT scan of the abdomen and pelvis with IV contrast on July 16 which was suggestive of colitis. Her diarrhea and vomiting has improved and she is now starting to tolerate oral intake. She admits to good urine output. Denies any hematuria or dysuria. She denies regular use of NSAIDs. She also received 2 doses of IV vancomycin on admission which was subsequently discontinued and she is now maintained on oral Cipro and Flagyl. She denies any chest pain or shortness of breath. She denies any prior history of kidney disease. Denies any family history of kidney disease. Her white count is trending down. Hemodynamically she's been stable without any significant hypotension. Vital signs are stable. General: The patient appeared well nourished and normally developed. HEENT: Head exam is unremarkable. Neck is without jugular venous distension. LUNGS: Lungs are clear to auscultation and percussion. Breath sounds decreased. HEART: Rate and Rhythm are regular. First and second heart sounds normal. No murmurs, rubs or gallops. ABDOMEN: Abdominal exam reveals normal bowel sounds. Non-tender and non- distended. EXTREMITITES: No clubbing, cyanosis, or edema. Past Medical History Past Medical History: Chest Pain / Angina Additional Past Medical History / Comment(s): tetrology of fallot as , cardiac stent in jul 26, 2011 for reasons of having chest pain History of Any Multi-Drug Resistant Organisms: None Reported Past Surgical History: Heart Catheterization With Stent, Orthopedic Surgery Additional Past Surgical History / Comment(s): heart surgery repair of tetralogy of fallot--infancy (9 days). heart surgery with valve repair at 18 mths. cardiac cath with stent at 2010. left elbow surgery--at 6 yrs of age. oral surgery--at 5 yrs Past Anesthesia/Blood Transfusion Reactions: No Reported Reaction, Motion Sickness Date of Last Stent Placement:: jul 26, 2011 Smoking Status: Current every day smoker - Past Family History Father Family Medical History: No Reported History Additional Family Medical History / Comment(s): back pain Mother Family Medical History: Cancer, Diabetes Mellitus, Hypertension Additional Family Medical History / Comment(s): MRSA, rt below knee amputation Medications and Allergies Home Medications Medication Instructions Recorded Confirmed Type Aspirin 81 mg PO DAILY 03/08/14 07/16/17 History Allergies Allergy/AdvReac Type Severity Reaction Status Date / Time hydromorphone [From Dilaudid] AdvReac Dyspnea Verified 07/17/17 15:02 Physical Exam Vitals: Vital Signs Temp Pulse Resp BP Pulse Ox 07/19/17 08:00 97.8 F 48 L 18 127/61 99 07/19/17 00:00 65 16 07/18/17 23:00 98.1 F 61 16 112/51 96 07/18/17 21:04 98.3 F 65 16 133/79 96 07/18/17 16:25 98.6 F 65 16 136/74 97 07/18/17 11:33 97.5 F L 65 20 123/67 99 Intake and Output 07/18/17 07/19/17 07/19/17 22:59 06:59 14:59 Intake Total 100 240 Output Total 225 25 Balance -125 -25 240 Intake: Oral 100 240 Output: Stool 225 25 Other: Voiding Method Toilet Toilet # Voids 1 Results - Lab Results Most recent lab results Calcium 8.1 mg/dL (8.4-10.2) L 07/19/17 08:32 07/19/17 06:11 07/19/17 08:32 Assessment and Plan Plan: Assessment: #1. Nonoliguric acute kidney injury secondary to ischemic ATN secondary to vomiting and diarrhea along with a component of contrast-induced nephropathy. Also concern for vancomycin toxicity as she did receive 2 doses however no level was drawn. Creatinine at the 6.75 today. Baseline creatinine 1. No evidence of hydronephrosis. Urinalysis does reveal proteinuria which can be nonspecific in the setting of acute kidney injury. No hematuria. #2. Colitis likely infectious maintained on antibiotics per infectious disease. #3. Metabolic acidosis secondary to acute kidney injury and IV fluids. #4. Hypokalemia due to poor oral intake and GI losses. Rule out magnesium deficiency. Plan: I will change IV fluids to isotonic sodium bicarbonate drip to be run at 100 mL an hour. Replace potassium. 40 mg once today. Check magnesium level. Follow-up cultures. Avoid nephrotoxic agents and hypotensive episodes. Discontinue Toradol. Check vancomycin level. Strict I's and O's. Repeat electrolytes in the morning. No need for [employer] JUDGE at this time. Thank you for the consultation. I will continue to follow the patient with you during her hospital stay.
[2017-07-19] MEDS: DEXTROSE 5% IN WATER 1,000 ML with SODIUM BICARB (1 MEQ/ML) 150 ML IV SCH ×2 (11:20→22:17)
--- NOTE | 2017-07-19 12:04 | PN ---
PROGRESS NOTE A 26-year-old white female admitted to hospital with acute onset of abdominal pain with nausea, vomiting, diarrhea for 3 days' duration. She had some low-grade fever when she came into the emergency room and was noted to have significant elevation of white count to 35,000. She was started on broad-spectrum antibiotics initially with Zosyn which was changed to Cipro and Flagyl yesterday. Stool cultures are still pending at the time of this dictation. C. diff. Was negative. The patient is doing much better. The diarrhea has resolved. Abdominal pain has improved. No further episodes of nausea, vomiting. She had no bowel movements in the last 12 hours. PHYSICAL EXAMINATION: Appears comfortable, in no apparent distress. VITAL SIGNS: Stable. Blood pressure is 133/79, pulse rate 63, temperature 98.e. HEENT: Unremarkable. Conjunctivae are pink. Sclerae anicteric. Oral cavity: No lesions. NECK: No JVD or lymph node enlargement. CHEST: Clear to auscultation. HEART: Regular rate and rhythm. ABDOMEN: Soft. Bowel sounds are positive. No organomegaly. EXTREMITIES: No pedal edema. SKIN: No rashes. NEURO: Alert and oriented x3. No focal deficits. LABS: This morning: WBC 22.1. BUN is 24, creatinine is 6.75. IMPRESSION: 1. This is a patient with acute onset of nausea, vomiting, abdominal pain and severe diarrhea for the last 3 days' duration associated with low-grade fever, all of which is consistent with acute infectious colitis. Stool cultures are still pending at the time of this dictation. She is empirically on Cipro and Flagyl and the diarrhea has resolved. Her abdominal symptoms are significantly improved. Cultures are still pending at the time of this dictation. 2. Acute renal failure with elevated creatinine at 6.75. The patient had a normal baseline creatinine. At this time, Dr. Gautam from nephrology has been consulted. RECOMMENDATIONS: 1. Advance diet as tolerated. 2. Continue empiric antibiotics for infectious colitis. 3. Will await stool cultures and will follow her closely during her hospital stay. Thank you for this consultation. MMODL / IJN: [id number] /
--- NOTE | 2017-07-19 14:02 | PN ---
PROGRESS NOTE DATE OF SERVICE: 07/19/2017 REASON FOR FOLLOWUP: Colitis, likely infectious. INTERVAL HISTORY: The patient is afebrile. She is breathing comfortably. Denies any chest pain, shortness of breath or cough. Abdominal pain has improved. Diarrhea has slowed down, slightly forming up with no blood or mucus in the stools. EXAMINATION: Blood pressure is 127/61 with a pulse of 48, temperature of 97.8. She is 99% on room air. General description is a middle aged female lying in bed in no distress. RESPIRATORY SYSTEM: Unlabored breathing. Clear to auscultation anteriorly. HEART: S1, S2. Regular rate and rhythm. ABDOMEN: Soft, no tenderness. LABS: Hemoglobin 12.2, white count 22.1. BUN of 24, creatinine 6.75. Urine is negative. DIAGNOSTIC IMPRESSION AND PLAN: Patient with admitted hospital with abdominal pain, nausea and diarrhea, likely infectious colitis. So far, stool culture pending. She is responding to Cipro and Flagyl will be continued. Did have jump in her creatinine for which Nephrology has seen the patient. Continue supportive care. MMODL / IJN: [id number] /
--- NOTE | 2017-07-19 22:40 | P.PN ---
Subjective Progress Note Date: 07/19/17 Principal diagnosis: Acute colitis Patient is a 26-year-old female with a known history of tetralogy of fallot presents emergency room today with chief point left-sided abdominal pain over the last 4 days. She describes it as a "sharp" type pain. Patient states is localized more to the left upper quadrant. Patient states never had pain similar to this in the past. Patient denied any fever otherwise patient does have cold sweats. She doesn't feeling nauseated. She states she's had some looser bowel movements. She denies any other points her symptoms. Patient denies any recent fever, chills, shortness of breath, chest pain, back pain, vomiting, numbness or tingling, dysuria or hematuria, constipation or diarrhea, headaches or visual changes, or any other complaints. No recent travel or sick contacts. No history of prior EGD or colonoscopy Patient denied any chest pain or shortness of breath. CT of the abdomen pelvis showed correlated for colitis. Correlate for splenectomy and prior surgery versus absent spleen. 07/17/2017 Patient today complaining of abdominal pain. Improved in the morning but is still having pain now. Patient has been afebrile. Patient says that she felt nauseated with the antibiotics. Otherwise patient did not have any diarrhea. C. diff toxin negative. Leukocytosis improving toda but still significantly elevated. Patient was seen by gastroenterology. Patient does have nausea and one episode of vomiting. No chest pain no shortness of breath. 07/18/2017 Patient's abdominal pain is much improved now. No complaints of nausea or vomiting. No fever no chills. Antibiotics have been changed to Levaquin and Flagyl. Patient is ambulating in the hallway. No comments of chest pain or short of breath. Patient still having severe leukocytosis. 07/19/2017 Patient's abdominal pain almost resolved. This is tolerating oral diet. No diarrhea currently. Otherwise patient was found to have worsening renal function with creatinine level 6.75. Urine studies were ordered and nephrology was consulted. No fever no chills. No nausea no vomiting. All other review of systems negative except the above Current medications reviewed. Objective - Vital Signs Vital signs: Vital Signs Temp 97.8 F 07/19/17 15:48 Pulse 48 L 07/19/17 15:48 Resp 18 11/11/17 15:48 BP 142/65 07/19/17 15:48 Pulse Ox 99 07/19/17 08:00 Intake & Output 07/19/17 07/19/17 07/20/17 06:59 18:59 06:59 Intake Total 100 540 Output Total 250 90 60 Balance -150 450 -60 Intake: Oral 100 540 Output: Urine 90 Stool 250 Emesis 60 Other: Voiding Method Toilet # Voids 1 # Bowel Movements 1 - Exam PHYSICAL EXAMINATION: Patient is lying in the bed comfortably, no acute distress, awake alert and oriented.. HEENT: Normocephalic. Neck is supple. Pupils reactive. Nostrils clear. Oral cavity is moist. Ears reveal no drainage. Neck reveals no JVD, carotid bruits, or thyromegaly. CHEST EXAMINATION: Trachea is central. Symmetrical expansion. Lung canchola clear to auscultation and percussion. CARDIAC: Normal S1, S2 with no gallops. No murmurs ABDOMEN: Soft. Nontender No guarding no rigidity. Bowel sounds normal. No organomegaly. No abdominal bruits. Extremities: reveal no edema. No clubbing or cyanosis Neurologically awake, alert, oriented x3 with well-coordinated movements. No focal deficits noted Skin: No rash or skin lesions. Psychiatric: Cooperative. Nonsuicidal Musculoskeletal: No joint swelling or deformity. Normal range of motion. - Labs CBC & Chem 7: 07/19/17 06:11 07/19/17 08:32 Labs: Abnormal Lab Results - Last 24 Hours (Table) 07/19/17 07/19/17 07/19/17 Range/Units 06:11 06:11 08:32 WBC 22.1 H (3.8-10.6) k/uL Neutrophils # 18.6 H (1.3-7.7) k/uL Monocytes # 1.4 H (0-1.0) k/uL Potassium 3.4 L 3.3 L (3.5-5.1) mmol/L Chloride 109 H 112 H (98-107) mmol/L Carbon Dioxide 17 L 14 L (22-30) mmol/L BUN 24 H 24 H (7-17) mg/dL Creatinine 6.50 H* 6.75 H* (0.52-1.04) mg/dL Glucose 101 H (74-99) mg/dL Calcium 8.2 L 8.1 L (8.4-10.2) mg/dL Urine Appearance (Clear) Urine Protein (Negative) Ur Leukocyte Esterase (Negative) Urine WBC (0-5) /hpf Ur Squamous Epith Cells (0-4) /hpf 07/19/17 Range/Units 08:43 WBC (3.8-10.6) k/uL Neutrophils # (1.3-7.7) k/uL Monocytes # (0-1.0) k/uL Potassium (3.5-5.1) mmol/L Chloride (98-107) mmol/L Carbon Dioxide (22-30) mmol/L BUN (7-17) mg/dL Creatinine (0.52-1.04) mg/dL Glucose (74-99) mg/dL Calcium (8.4-10.2) mg/dL Urine Appearance Cloudy H (Clear) Urine Protein 2+ H (Negative) Ur Leukocyte Esterase Small H (Negative) Urine WBC 7 H (0-5) /hpf Ur Squamous Epith Cells 21 H (0-4) /hpf Microbiology - Last 24 Hours (Table) 07/16/17 16:23 Blood Culture - Preliminary Blood No Growth after 72 hours 07/17/17 09:28 Stool Culture - Preliminary Stool Assessment and Plan Assessment: #1 nonoliguric acute kidney injury. Possible ATN due to sepsis and nausea vomiting diarrhea on admission.. Also contrast nephropathy and vancomycin toxicity is being considered. #1 sepsis secondary to colitis possible infectious versus inflammatory #2 significant leukocytosis #3 Aspleenia, possibly congenital along with congenital heart disease #4 tetralogy of Fallot 5 history of PCI in 2010 #6 hypokalemia Plan: IV fluids has been changed to bicarbonate drip. Avoid nephrotoxic agents. Toradol has been discontinued. Continue with Levaquin and Flagyl.. Nephrology is following. Cultures showed no growth so far. We will continue the current management and follow closely. Further recommendations based on the clinical course. Time with Patient: Greater than 30
[2017-07-20 07:11] LABS: Basophils # (A) 0.1 k/uL (0-0.2); Basophils % (A) 0 %; CH 31.9; Eosinophils # (A) 0.1 k/uL (0-0.7); Eosinophils % (A) 0 %; HDW 2.72; HGB 11.7 gm/dL (11.4-16.0); Luc # (Auto) 0.33; Luc % (Auto) 1; Lymphocytes # (A) 1.2 k/uL (1.0-4.8); Lymphocytes % (A) 5 %; MCH 30.7 pg (25.0-35.0); MCHC 31.6 g/dL (31.0-37.0); MCV 97.1 fL (80.0-100.0); Mean Platelet Volume 6.7; Monocytes # (A) 1.6 k/uL (0-1.0); Monocytes % (A) 7 %; Neutrophils # (A) 19.6 k/uL (1.3-7.7); Neutrophils % (A) 86 %; RBC 3.81 m/uL (3.80-5.40); RDW 13.1 % (11.5-15.5); WBC 22.9 k/uL (3.8-10.6); WBC (Perox) 24.37
[2017-07-20 07:29] LABS: Magnesium 1.8 mg/dL (1.6-2.3); Potassium 3.3 mmol/L (3.5-5.1)
[2017-07-20] MEDS ORDERED: POTASSIUM CHLORIDE ER 20 MEQ TAB.ER PO STA (09:23)
[2017-07-20] MEDS: CIPROFLOXACIN HCL 500 MG TAB PO SCH ×2 (09:37→21:53)
[2017-07-20] MEDS: metroNIDAZOLE 500 MG TAB PO SCH ×3 (09:37→21:53)
[2017-07-20] MEDS: DEXTROSE 5% IN WATER 1,000 ML with SODIUM BICARB (1 MEQ/ML) 150 ML IV SCH (09:37)
[2017-07-20] MEDS ORDERED: FUROSEMIDE 10 MG/ML 10 ML VIAL IV STA (09:42)
--- NOTE | 2017-07-20 09:42 | P.PN ---
Subjective Patient is seen in follow-up for acute kidney injury. Renal function continues to worsen with creatinine at 8.1 today. Her urine output in the last 24 hours was 230 mL. Patient is awake and alert. She is tolerating oral intake. No vomiting or diarrhea. Denies edema. Hemodynamically stable. Patient presented with abdominal pain and diarrhea. She did receive to heavy doses of IV vancomycin upon admission. Her level yesterday was 17. No level was checked initially. She also received IV contrast on July 16 for CAT scan. Patient is eager to go home. Vital signs are stable. General: The patient appeared well nourished and normally developed. HEENT: Head exam is unremarkable. Neck is without jugular venous distension. LUNGS: Lungs are clear to auscultation and percussion. Breath sounds decreased. HEART: Rate and Rhythm are regular. First and second heart sounds normal. No murmurs, rubs or gallops. ABDOMEN: Abdominal exam reveals normal bowel sounds. Non-tender and non- distended. No evidence of peritonitis. EXTREMITITES: No clubbing, cyanosis, or edema. No asterixis. Objective - Vital Signs Vital signs: Vital Signs Temp 98.0 F 07/20/17 07:25 Pulse 49 L 07/20/17 07:25 Resp 18 07/20/17 07:25 BP 115/62 07/20/17 07:25 Pulse Ox 98 07/20/17 07:25 Intake & Output 07/19/17 07/20/17 07/20/17 18:59 06:59 18:59 Intake Total 540 420 45 Output Total 90 260 25 Balance 450 160 20 Weight 71.214 kg Intake: Oral 540 420 45 Output: Urine 90 140 25 Emesis 120 Other: Voiding Method Toilet # Voids 1 # Bowel Movements 1 1 - Labs CBC & Chem 7: 07/20/17 06:25 07/20/17 06:25 Labs: Abnormal Lab Results - Last 24 Hours (Table) 07/20/17 07/20/17 Range/Units 06:25 06:25 WBC 22.9 H (3.8-10.6) k/uL Neutrophils # 19.6 H (1.3-7.7) k/uL Monocytes # 1.6 H (0-1.0) k/uL Potassium 3.3 L (3.5-5.1) mmol/L BUN 29 H (7-17) mg/dL Creatinine 8.21 H* (0.52-1.04) mg/dL Glucose 126 H (74-99) mg/dL Calcium 8.0 L (8.4-10.2) mg/dL Microbiology - Last 24 Hours (Table) 07/16/17 16:23 Blood Culture - Preliminary Blood No Growth after 72 hours 07/17/17 09:28 Stool Culture - Preliminary Stool Assessment and Plan Plan: Assessment: #1. Oliguric acute kidney injury secondary to ischemic ATN secondary to vomiting and diarrhea along with a component of contrast-induced nephropathy. Also concern for vancomycin toxicity as she did receive 2 doses on admission, however no level was drawn. Creatinine rising - 8.21 today. Baseline creatinine 1. No evidence of hydronephrosis. Urinalysis does reveal proteinuria which can be nonspecific in the setting of acute kidney injury. No hematuria. #2. Colitis likely infectious maintained on antibiotics per infectious disease. #3. Metabolic acidosis secondary to acute kidney injury and IV fluids. Improved. #4. Hypokalemia due to poor oral intake and GI losses. Magnesium and replete. Plan: Continue isotonic sodium bicarbonate drip to be run at 100 mL an hour. Replace potassium. 20 mg once today. Avoid aggressive replacement as patient is oliguric. Lasix 80 mg IV once today. Avoid nephrotoxic agents and hypotensive episodes. Discontinued Toradol. Strict I's and O's. Repeat electrolytes in the morning. Check serologies although doubt glomerulonephritis. No urgent need for renal replacement therapy at this time. However, if her renal function continues to worsen and remains oliguric, will need to initiate in the next 24-48 hours.
[2017-07-20] MEDS ORDERED: POTASSIUM CHLORIDE 20 MEQ, LIDOCAINE 2% INJ 20 MG in SODIUM CHLORIDE 0.9% 100 ML IVPB ONE (10:00)
--- NOTE | 2017-07-20 11:23 | PN ---
PROGRESS NOTE DATE OF SERVICE: July 20, 2017 REQUESTING PHYSICIAN: Dr. Cadena. INTERVAL HISTORY: The patient is a 26-year-old pleasant white female admitted to the hospital with acute severe diarrhea that started about 3 days prior to hospitalization. She had a significant leukocytosis, initially was treated with vancomycin and Zosyn in the ER and subsequently antibiotics were changed to Cipro and Flagyl. However, in the meantime, her symptoms improved including the nausea, vomiting and diarrhea, but she developed worsening creatinine and today it is up to 8 g/dL. The patient complains of some nausea. Overall, she is feeling better. She had 1 solid bowel movement last night. No blood or mucus in the stool. She denies any fever, chills, night sweats. PHYSICAL EXAMINATION: She appears comfortable. No apparent distress. VITAL SIGNS: Stable. Blood pressure is 130/86, pulse rate 82 per minute and afebrile. HEENT examination unremarkable. Conjunctivae pink. Sclerae anicteric. Oral cavity no lesions. Neck no jugular venous distention or lymph node enlargement. Chest was clear to auscultation. HEART: Regular rate and rhythm. ABDOMEN: Soft. Bowel sounds are positive. No organomegaly. Extremities no pedal edema. Skin no rashes. NEUROLOGIC: Alert and oriented x3. No focal deficits. LABS: Done today WBC 22.9, hemoglobin 11.7, platelets are normal. BUN 29, creatinine 8.21. Stool cultures no growth so far. Stools Cryptosporidium negative. Urea antigen negative. IMPRESSION: 1. Acute onset of diarrhea with abdominal pain, nausea, vomiting, and leukocytosis, most likely infectious colitis. Presently on Cipro and Flagyl, and her gastrointestinal symptoms are significantly improved. 2. Acute renal failure, probably acute tubular necrosis. Dr. Giles following the patient closely. RECOMMENDATIONS: 1. Await stool cultures. 2. Continue with empiric antibiotics. 3. Encouraged to increase oral intake. 4. Advance diet as tolerated. 5. We will follow closely during hospital stay. Thank you for this consultation. MMODL / IJN: [id number] /
[2017-07-20 19:37] LABS: ANA w/Reflex to Titer NEGATIVE (NEGATIVE)
[2017-07-20] MEDS ORDERED: POTASSIUM CHLORIDE 20 MEQ in WATER FOR INJECTION 1 100ML.BAG IVPB SCH (20:00)
[2017-07-20] MEDS: POTASSIUM CHLORIDE 20 MEQ, LIDOCAINE 2% INJ 20 MG in SODIUM CHLORIDE 0.9% 100 ML IVPB SCH ×2 (20:05→22:01)
--- NOTE | 2017-07-20 22:20 | P.PN ---
Subjective Progress Note Date: 07/20/17 Principal diagnosis: Acute colitis Patient is a 26-year-old female with a known history of tetralogy of fallot presents emergency room today with chief point left-sided abdominal pain over the last 4 days. She describes it as a "sharp" type pain. Patient states is localized more to the left upper quadrant. Patient states never had pain similar to this in the past. Patient denied any fever otherwise patient does have cold sweats. She doesn't feeling nauseated. She states she's had some looser bowel movements. She denies any other points her symptoms. Patient denies any recent fever, chills, shortness of breath, chest pain, back pain, vomiting, numbness or tingling, dysuria or hematuria, constipation or diarrhea, headaches or visual changes, or any other complaints. No recent travel or sick contacts. No history of prior EGD or colonoscopy Patient denied any chest pain or shortness of breath. CT of the abdomen pelvis showed correlated for colitis. Correlate for splenectomy and prior surgery versus absent spleen. 07/17/2017 Patient today complaining of abdominal pain. Improved in the morning but is still having pain now. Patient has been afebrile. Patient says that she felt nauseated with the antibiotics. Otherwise patient did not have any diarrhea. C. diff toxin negative. Leukocytosis improving toda but still significantly elevated. Patient was seen by gastroenterology. Patient does have nausea and one episode of vomiting. No chest pain no shortness of breath. 07/18/2017 Patient's abdominal pain is much improved now. No complaints of nausea or vomiting. No fever no chills. Antibiotics have been changed to Levaquin and Flagyl. Patient is ambulating in the hallway. No comments of chest pain or short of breath. Patient still having severe leukocytosis. 07/19/2017 Patient's abdominal pain almost resolved. This is tolerating oral diet. No diarrhea currently. Otherwise patient was found to have worsening renal function with creatinine level 6.75. Urine studies were ordered and nephrology was consulted. No fever no chills. No nausea no vomiting. 07/20/2017 Patient symptomatically much improved. Tolerating oral diet. No complaints of abdominal pain today. Otherwise her creatinine increased to 8.27. Patient is still oliguric and a dose of Lasix was given IV. Serological workup was ordered to rule out glomerulonephritis is low suspicious at this time All other review of systems negative except the above Current medications reviewed. Objective - Vital Signs Vital signs: Vital Signs Temp 99.3 F 07/20/17 15:00 Pulse 50 L 07/20/17 16:00 Resp 18 07/20/17 16:00 BP 139/77 07/20/17 15:00 Pulse Ox 99 07/20/17 15:00 Intake & Output 07/20/17 07/20/17 07/21/17 06:59 18:59 06:59 Intake Total 420 495 Output Total 260 225 Balance 160 270 Weight 71.214 kg Intake: Oral 420 495 Output: Urine 140 200 Stool 25 Emesis 120 Other: Voiding Method Toilet Toilet # Voids 1 # Bowel Movements 1 2 - Exam PHYSICAL EXAMINATION: Patient is lying in the bed comfortably, no acute distress, awake alert and oriented.. HEENT: Normocephalic. Neck is supple. Pupils reactive. Nostrils clear. Oral cavity is moist. Ears reveal no drainage. Neck reveals no JVD, carotid bruits, or thyromegaly. CHEST EXAMINATION: Trachea is central. Symmetrical expansion. Lung canchola clear to auscultation and percussion. CARDIAC: Normal S1, S2 with no gallops. No murmurs ABDOMEN: Soft. Nontender No guarding no rigidity. Bowel sounds normal. No organomegaly. No abdominal bruits. Extremities: reveal no edema. No clubbing or cyanosis Neurologically awake, alert, oriented x3 with well-coordinated movements. No focal deficits noted Skin: No rash or skin lesions. Psychiatric: Cooperative. Nonsuicidal Musculoskeletal: No joint swelling or deformity. Normal range of motion. - Labs CBC & Chem 7: 07/20/17 06:25 07/20/17 18:21 Labs: Abnormal Lab Results - Last 24 Hours (Table) 07/20/17 07/20/17 07/20/17 Range/Units 06:25 06:25 10:18 WBC 22.9 H (3.8-10.6) k/uL Neutrophils # 19.6 H (1.3-7.7) k/uL Monocytes # 1.6 H (0-1.0) k/uL Potassium 3.3 L (3.5-5.1) mmol/L BUN 29 H (7-17) mg/dL Creatinine 8.21 H* (0.52-1.04) mg/dL Glucose 126 H (74-99) mg/dL Calcium 8.0 L (8.4-10.2) mg/dL U Random Total Protein 100 H (<12) mg/dL 07/20/17 Range/Units 18:21 WBC (3.8-10.6) k/uL Neutrophils # (1.3-7.7) k/uL Monocytes # (0-1.0) k/uL Potassium 3.0 L* (3.5-5.1) mmol/L BUN (7-17) mg/dL Creatinine (0.52-1.04) mg/dL Glucose (74-99) mg/dL Calcium (8.4-10.2) mg/dL U Random Total Protein (<12) mg/dL Microbiology - Last 24 Hours (Table) 07/17/17 09:28 Stool Culture - Final Stool 07/16/17 16:23 Blood Culture - Preliminary Blood No Growth after 96 hours Assessment and Plan Assessment: #1 nonoliguric acute kidney injury. Possible ATN due to sepsis and nausea vomiting diarrhea on admission.. Also contrast nephropathy and vancomycin toxicity is being considered. Eosinophils in the urine 0 #1 sepsis secondary to colitis possible infectious versus inflammatory #2 significant leukocytosis #3 Aspleenia, possibly congenital along with congenital heart disease #4 tetralogy of Fallot 5 history of PCI in 2010 #6 hypokalemia Plan: IV fluids has been changed to bicarbonate drip. Avoid nephrotoxic agents. Follow-up renal function closely. Serological workup was ordered. Nephrology is considering STAVE AND BOLT EQUALIZER if renal function does not get better in next 24-48 hours. Patient was given IV Lasix 1. Toradol has been discontinued. Continue with Levaquin and Flagyl.. Nephrology is following. Cultures showed no growth so far. We will continue the current management and follow closely. Further recommendations based on the clinical course.
[2017-07-21] MEDS: DEXTROSE 5% IN WATER 1,000 ML with SODIUM BICARB (1 MEQ/ML) 150 ML IV SCH ×2 (01:09→16:31)
[2017-07-21] MEDS: ONDANSETRON 4 MG/2 ML VIAL IVP PRN ×3 (01:35→18:50)
--- NOTE | 2017-07-21 05:17 | PN ---
PROGRESS NOTE DATE OF SERVICE: 07/20/2017 REASON FOR FOLLOWUP: Colitis. INTERVAL HISTORY: The patient is afebrile. She is breathing comfortably. Denies having any chest pain, shortness of breath, cough. Abdominal pain has resolved and did have a soft bowel movement. PHYSICAL EXAMINATION: On examination, blood pressure 123/68 with a pulse of 67, temperature 99.3. She is 99% on room air. General description is a middle aged female, lying in bed in no distress. RESPIRATORY SYSTEM: Unlabored breathing, clear to auscultation anteriorly. HEART: S1, S2. Regular rate and rhythm. ABDOMEN: Soft, no tenderness. LABS: White count 22.9 and the BUN of 29, creatinine 8.21. Stool cultures so far negative. DIAGNOSTIC IMPRESSION AND PLAN: Patient with colitis, more likely infectious. Overall responding to Cipro and Flagyl, will continue though the dose should be adjusted in view of her creatinine clearance. Await resolution and improvement in her kidney function. Family was present at bedside. Their questions were answered. MMODL / IJN: [id number] / MTDAviva
[2017-07-21 05:42] LABS: Basophils # (A) 0.1 k/uL (0-0.2); Basophils % (A) 0 %; CH 31.8; CHCM 33.5; Eosinophils # (A) 0.2 k/uL (0-0.7); Eosinophils % (A) 1 %; HDW 2.64; HGB 11.4 gm/dL (11.4-16.0); Luc # (Auto) 0.39; Luc % (Auto) 2; Lymphocytes # (A) 1.9 k/uL (1.0-4.8); Lymphocytes % (A) 9 %; MCH 31.1 pg (25.0-35.0); MCHC 32.6 g/dL (31.0-37.0); MCV 95.4 fL (80.0-100.0); Mean Platelet Volume 6.5; Monocytes # (A) 1.8 k/uL (0-1.0); Monocytes % (A) 8 %; Neutrophils % (A) 81 %; RBC 3.67 m/uL (3.80-5.40); WBC 22.3 k/uL (3.8-10.6); WBC (Perox) 21.54
[2017-07-21 05:54] LABS: Calcium 7.9 mg/dL (8.4-10.2); Potassium 3.4 mmol/L (3.5-5.1)
[2017-07-21] MEDS: metroNIDAZOLE 500 MG TAB PO SCH ×2 (08:00→20:31)
[2017-07-21] MEDS: CIPROFLOXACIN HCL 500 MG TAB PO SCH (08:01)
[2017-07-21] MEDS ORDERED: LIDOCAINE 1% INJ 10MG/ML (20 ML MDV) ONE (09:58)
--- NOTE | 2017-07-21 11:22 | PN ---
PROGRESS NOTE DATE OF SERVICE: 07/21/2017 REASON FOR FOLLOWUP: Colitis, likely infectious. INTERVAL HISTORY: The patient is afebrile. She did feel nauseated this morning. The patient denies any chest pain, shortness of breath, cough. No abdominal pain. Did have small bowel movement. PHYSICAL EXAMINATION: On examination, blood pressure 126/81 with a pulse of 51, temperature 98.6. She is 96% on room air. General description is a middle-aged female lying in bed in no distress. RESPIRATORY SYSTEM: Unlabored breathing, clear to auscultation anteriorly. HEART: S1, S2. Regular rate and rhythm. ABDOMEN: Soft, no tenderness. LABS: Hemoglobin 11.4, white count down to 22.3 with a BUN of 30, creatinine 8.90. Stool cultures has been negative. DIAGNOSTIC IMPRESSION AND PLAN: Patient admitted to the hospital with abdominal pain, vomiting and diarrhea with evidence of colitis, more likely infectious. So far studies have been negative. Currently on oral Cipro and Flagyl, will be continued. Waiting for the kidney function to improve. Continue supportive care. MMODL / IJN: [id number] / RAFY
[2017-07-21] MEDS ORDERED: FUROSEMIDE 10 MG/ML 10 ML VIAL IV STA (11:51)
--- NOTE | 2017-07-21 23:09 | P.PN ---
Subjective Progress Note Date: 07/21/17 Principal diagnosis: Acute colitis Patient is a 26-year-old female with a known history of tetralogy of fallot presents emergency room today with chief point left-sided abdominal pain over the last 4 days. She describes it as a "sharp" type pain. Patient states is localized more to the left upper quadrant. Patient states never had pain similar to this in the past. Patient denied any fever otherwise patient does have cold sweats. She doesn't feeling nauseated. She states she's had some looser bowel movements. She denies any other points her symptoms. Patient denies any recent fever, chills, shortness of breath, chest pain, back pain, vomiting, numbness or tingling, dysuria or hematuria, constipation or diarrhea, headaches or visual changes, or any other complaints. No recent travel or sick contacts. No history of prior EGD or colonoscopy Patient denied any chest pain or shortness of breath. CT of the abdomen pelvis showed correlated for colitis. Correlate for splenectomy and prior surgery versus absent spleen. 07/17/2017 Patient today complaining of abdominal pain. Improved in the morning but is still having pain now. Patient has been afebrile. Patient says that she felt nauseated with the antibiotics. Otherwise patient did not have any diarrhea. C. diff toxin negative. Leukocytosis improving toda but still significantly elevated. Patient was seen by gastroenterology. Patient does have nausea and one episode of vomiting. No chest pain no shortness of breath. 07/18/2017 Patient's abdominal pain is much improved now. No complaints of nausea or vomiting. No fever no chills. Antibiotics have been changed to Levaquin and Flagyl. Patient is ambulating in the hallway. No comments of chest pain or short of breath. Patient still having severe leukocytosis. 07/19/2017 Patient's abdominal pain almost resolved. This is tolerating oral diet. No diarrhea currently. Otherwise patient was found to have worsening renal function with creatinine level 6.75. Urine studies were ordered and nephrology was consulted. No fever no chills. No nausea no vomiting. 07/20/2017 Patient symptomatically much improved. Tolerating oral diet. No complaints of abdominal pain today. Otherwise her creatinine increased to 8.27. Patient is still oliguric and a dose of Lasix was given IV. Serological workup was ordered to rule out glomerulonephritis is low suspicious at this time 07/21/2017 patient denied any abdominal pain. No nausea vomiting or diarrhea. Patient is having good urine output today. Patient was given 1 dose of IV Lasix. Creatinine increased to 8.9 today. Serological workup has been negative so far. No fever no chills. Patient is clinically stable. No other acute overnight issues. All other review of systems negative except the above Current medications reviewed. Objective - Vital Signs Vital signs: Vital Signs Temp 99.2 F 07/21/17 19:34 Pulse 50 L 07/21/17 19:39 Resp 18 07/21/17 19:39 BP 128/65 07/21/17 19:34 Pulse Ox 97 07/21/17 19:34 Intake & Output 07/21/17 07/21/17 07/22/17 06:59 18:59 06:59 Intake Total 540 750 Output Total 215 281 145 Balance 325 469 -145 Weight 71.214 kg 78.7 kg Intake: Oral 540 750 Output: Urine 165 280 140 Urine/Stool Mix 1 Emesis 50 5 Other: Voiding Method Toilet Toilet Toilet # Voids 1 1 - Exam PHYSICAL EXAMINATION: Patient is lying in the bed comfortably, no acute distress, awake alert and oriented.. HEENT: Normocephalic. Neck is supple. Pupils reactive. Nostrils clear. Oral cavity is moist. Ears reveal no drainage. Neck reveals no JVD, carotid bruits, or thyromegaly. CHEST EXAMINATION: Trachea is central. Symmetrical expansion. Lung canchola clear to auscultation and percussion. CARDIAC: Normal S1, S2 with no gallops. No murmurs ABDOMEN: Soft. Nontender No guarding no rigidity. Bowel sounds normal. No organomegaly. No abdominal bruits. Extremities: reveal no edema. No clubbing or cyanosis Neurologically awake, alert, oriented x3 with well-coordinated movements. No focal deficits noted Skin: No rash or skin lesions. Psychiatric: Cooperative. Nonsuicidal Musculoskeletal: No joint swelling or deformity. Normal range of motion. - Labs CBC & Chem 7: 07/21/17 05:24 07/21/17 05:24 Labs: Abnormal Lab Results - Last 24 Hours (Table) 07/21/17 07/21/17 Range/Units 05:24 05:24 WBC 22.3 H (3.8-10.6) k/uL RBC 3.67 L (3.80-5.40) m/uL Neutrophils # 18.0 H (1.3-7.7) k/uL Monocytes # 1.8 H (0-1.0) k/uL Sodium 133 L (137-145) mmol/L Potassium 3.4 L (3.5-5.1) mmol/L BUN 30 H (7-17) mg/dL Creatinine 8.90 H* (0.52-1.04) mg/dL Glucose 121 H (74-99) mg/dL Calcium 7.9 L (8.4-10.2) mg/dL Microbiology - Last 24 Hours (Table) 07/16/17 16:23 Blood Culture - Preliminary Blood No Growth after 120 hours 07/17/17 09:28 Stool Culture - Final Stool Assessment and Plan Assessment: #1 nonoliguric acute kidney injury. Possible ATN due to sepsis and nausea vomiting diarrhea on admission.. Also contrast nephropathy and vancomycin toxicity is being considered. Eosinophils in the urine 0. Expected to improve. #1 sepsis secondary to colitis possible infectious versus inflammatory #2 significant leukocytosis #3 Aspleenia, possibly congenital along with congenital heart disease #4 tetralogy of Fallot 5 history of PCI in 2010 #6 hypokalemia Plan: IV fluids has been changed to bicarbonate drip. Avoid nephrotoxic agents. Follow-up renal function closely. Serological workup was ordered. Nephrology is considering OFFICE DIRECTOR if renal function does not get better in next 24-48 hours. Patient was given IV Lasix 1. Toradol has been discontinued. Continue with Levaquin and Flagyl.. Nephrology is following. Cultures showed no growth so far. We will continue the current management and follow closely. Further recommendations based on the clinical course. Time with Patient: Greater than 30
--- NOTE | 2017-07-21 23:39 | PN ---
PROGRESS NOTE Patient is seen for followup for acute kidney injury. The serum creatinine is again elevated today at 8.9 from 8.2 yesterday. Urine output has been on the lower side. The patient received Lasix last night and had about 195 cc overnight. However, this morning when patient was seen, she had only 75 cc for about 4-5 hours. The patient currently denies any significant complaints, however, she has been nauseated and has vomited a couple of times. She is quite tearful that she may need dialysis. There are no nephrotoxic agents on board. Currently, patient is maintained on IV fluids. EXAMINATION: Blood pressure was 119/69, heart rate 50 per minute. She is afebrile. Examination of the heart S1, S2. Examination lungs bilateral breath sounds are heard. Abdomen is soft, nontender. Examination lower extremities shows no evidence of edema. SPONSORSHIP COORDINATOR exam is grossly intact. LAB: Show sodium of 133, potassium 3.4, chloride 101, BUN 30 serum creatinine 8.9, hemoglobin 11.4 g/dL. All serologies are negative. ASSESSMENT: 1. Acute kidney injury, possibly ATN with all serologies currently being negative. However, patient does have proteinuria noted on UA. The protein creatinine ratio is not too high. I have advised the patient that she may need dialysis in the next 1-2 days if her renal function does not start to improve. She is mildly symptomatic as well. She might also benefit from a kidney biopsy since we do not have a clear etiology. It may very well be vancomycin toxicity, although the current level is not high. Patient did receive IV contrast on 07/16/2017 as well. 2. Colitis, maintained on Cipro and Flagyl. 3. Metabolic acidosis. currently improved. 4. Hypokalemia, status post replacement. PLAN: Continue off of nonsteroidal anti-inflammatory agents. Continue IV fluids. Will repeat high-dose Lasix to help improve urine output. Again, patient is advised that she may need renal replacement therapy in the next 1-2 days. If renal function does not improve. MMODL / IJN: [id number] /
[2017-07-22] MEDS: metroNIDAZOLE 500 MG TAB PO SCH ×5 (00:43→22:09)
[2017-07-22] MEDS: ONDANSETRON 4 MG/2 ML VIAL IVP PRN ×4 (01:23→20:17)
[2017-07-22] MEDS: DEXTROSE 5% IN WATER 1,000 ML with SODIUM BICARB (1 MEQ/ML) 150 ML IV SCH ×3 (05:13→16:55)
[2017-07-22 06:43] LABS: Basophils # (A) 0.1 k/uL (0-0.2); Basophils % (A) 0 %; CH 31.9; CHCM 33.5; Eosinophils # (A) 0.1 k/uL (0-0.7); Eosinophils % (A) 1 %; HCT 35.2 % (34.0-46.0); HDW 2.54; HGB 11.5 gm/dL (11.4-16.0); Luc % (Auto) 2; Lymphocytes # (A) 1.8 k/uL (1.0-4.8); Lymphocytes % (A) 9 %; MCH 31.1 pg (25.0-35.0); MCHC 32.5 g/dL (31.0-37.0); MCV 95.7 fL (80.0-100.0); Monocytes # (A) 1.7 k/uL (0-1.0); Monocytes % (A) 8 %; Neutrophils # (A) 16.1 k/uL (1.3-7.7); Neutrophils % (A) 80 %; RBC 3.68 m/uL (3.80-5.40); RDW 12.9 % (11.5-15.5); WBC 20.2 k/uL (3.8-10.6)
[2017-07-22 06:48] LABS: Calcium 7.8 mg/dL (8.4-10.2)
[2017-07-22] MEDS ORDERED: Potassium Replacement Protocol 1 EACH MISC MISCELLANE PRN (08:10)
[2017-07-22] MEDS: POTASSIUM CHLORIDE 10 MEQ, LIDOCAINE 2% INJ 10 MG in SODIUM CHLORIDE 0.9% 100 ML IV SCH ×5 (08:46→16:55)
[2017-07-22] MEDS: CIPROFLOXACIN HCL 500 MG TAB PO SCH (09:52)
[2017-07-22 14:58] LABS: C-ANCA <1:20 Titer (<1:20); P-ANCA <1:20 Titer (<1:20)
--- NOTE | 2017-07-22 16:30 | P.PN ---
Subjective Patient is admitted for colitis and patient is on antibiotics in the from of cephalexin and metronidazole patient is also being treated for acute kidney injury most probably acute tubular necrosis, no significant improvement creatinine continued to worsen repeat lites and kidney function are being obtained tomorrow nephrology is following the patient. Her abdominal pain and diarrhea resolved. Constitutional: Denied any fatigue denied any fever. Cardio vascular: denied any chest pain, palpitations Gastrointestinal denied any nausea vomiting Pulmonary: Denied any shortness of breath cough Neurologic denied any new focal deficits Objective - Vital Signs Vital signs: Vital Signs Temp 98.3 F 07/22/17 11:53 Pulse 57 L 07/22/17 11:53 Resp 16 07/22/17 11:53 BP 127/60 07/22/17 11:53 Pulse Ox 94 L 07/22/17 11:53 Intake & Output 07/21/17 07/22/17 07/22/17 18:59 06:59 18:59 Intake Total 750 480 Output Total 281 345 177 Balance 469 -345 303 Weight 78.7 kg 78.9 kg Intake: Oral 750 480 Output: Urine 280 340 152 Stool 25 Urine/Stool Mix 1 Emesis 5 Other: Voiding Method Toilet Toilet Toilet # Voids 1 - Exam PHYSICAL EXAMINATION: GENERAL: The patient is alert and oriented x3, not in any acute distress. Well developed, well nourished. HEENT: Pupils are round and equally reacting to light. EOMI. No scleral icterus. No conjunctival pallor. Normocephalic, atraumatic. No pharyngeal erythema. No thyromegaly. CARDIOVASCULAR: S1 and S2 present. No rubs, or gallops. There is a pansystolic murmur and aortic area PULMONARY: Chest is clear to auscultation, no wheezing or crackles. ABDOMEN: Soft, nontender, nondistended, normoactive bowel sounds. No palpable organomegaly. MUSCULOSKELETAL: No joint swelling or deformity. EXTREMITIES: No cyanosis, clubbing, or pedal edema. NEUROLOGICAL: Gross neurological examination did not reveal any focal deficits. SKIN: No rashes. - Labs CBC & Chem 7: 07/22/17 06:09 07/22/17 06:09 Labs: Abnormal Lab Results - Last 24 Hours (Table) 07/22/17 07/22/17 Range/Units 06:09 06:09 WBC 20.2 H (3.8-10.6) k/uL RBC 3.68 L (3.80-5.40) m/uL Neutrophils # 16.1 H (1.3-7.7) k/uL Monocytes # 1.7 H (0-1.0) k/uL Sodium 134 L (137-145) mmol/L Potassium 3.0 L* (3.5-5.1) mmol/L Chloride 94 L (98-107) mmol/L Carbon Dioxide 32 H (22-30) mmol/L BUN 32 H (7-17) mg/dL Creatinine 9.40 H* (0.52-1.04) mg/dL Glucose 118 H (74-99) mg/dL Calcium 7.8 L (8.4-10.2) mg/dL Microbiology - Last 24 Hours (Table) 07/16/17 16:23 Blood Culture - Preliminary Blood No Growth after 120 hours 07/17/17 09:28 Stool Culture - Final Stool Assessment and Plan Plan: #1 nonoliguric acute kidney injury. Possible ATN due to sepsis and nausea vomiting diarrhea on admission.. Also contrast nephropathy and vancomycin toxicity is being considered. Eosinophils in the urine 0. Continue to worsen repeat kidney function tomorrow #2 sepsis secondary to colitis possible infectious versus inflammatory, continue with antibiotics #3 Aspleenia, possibly congenital along with congenital heart disease #4 tetralogy of Fallot 5 history of PCI in 2010 #6 hypokalemia
[2017-07-22] MEDS: cefTRIAXone IN SWFI 1,000 MG/10 ML SYRINGE IVP SCH (16:55)
[2017-07-22] MEDS ORDERED: FUROSEMIDE 10 MG/ML 10 ML VIAL IV STA (17:38)
--- NOTE | 2017-07-22 18:11 | PN ---
PROGRESS NOTE Patient is seen for followup for acute kidney injury. Her renal function continues to worsen. The patient's serum creatinine is up to 9.4 mg/dL. She states she feels fine; however, she has not been able to eat and has been nauseated. Her urine output remains low as well. The patient is maintained on IV fluids at 100 mL an hour. This afternoon, her family is present at bedside, including one of her best friends. Her grandmother is also present. I have discussed renal replacement therapy with the patient and the family and I have advised them that if by tomorrow serum creatinine continues to rise and she remains with poor urine output, we will need to place a PermCath tomorrow and start dialysis. At this time, although her labs are quite critical, she is not severely acidotic or hyperkalemic. In fact, she is hypokalemic; therefore, we can continue to wait. I have also advised them that once we start the dialysis, we can also perform a kidney biopsy, which will help determine the exact etiology of her renal failure. EXAMINATION: Patient is comfortable. She is sitting up in bed, not in any acute distress. Blood pressure is 119/68, heart rate 59 per minute. She is afebrile. HEART: S1, S2. LUNGS: Bilateral breath sounds are heard. Decreased breath sounds in the bases. ABDOMEN: Soft, nontender. Lower extremities show no significant edema. SATELLITE DISH TECHNICIAN: Grossly intact. Patient is moving all 4 extremities. LABS: Today show sodium 134, potassium 3.0, chloride 94, BUN of 32, serum creatinine 9.4 mg/dL. Calcium was 7.8. All serologies are negative, including MARIA ESTHER, ANCA, C3, C4, anti double-stranded DNA, and hepatitis serologies. ASSESSMENT: 1. Acute kidney injury, most likely related to toxicity from antibiotics, possibly vancomycin. No evidence of acute interstitial nephritis. Urine eosinophils was 0; however, patient does have proteinuria. She will benefit from a kidney biopsy, but it will only be done after she has had at least a couple of dialysis treatments, given the high risk of bleeding with significantly elevated BUN and creatinine. 2. Hypokalemia. Will replace cautiously. 3. Metabolic acidosis, currently improved. Will discontinue the bicarb drip. 4. Sepsis, possibly secondary to colitis, maintained on antibiotics. 5. History of Fallot's tetralogy, status post surgery during childhood. PLAN: Lasix x1. Change IV fluids. Decrease rate and if serum creatinine is higher and urine output remains low, patient and her family are agreeable to starting dialysis and then we will proceed with a kidney biopsy as well after at least 2 to 3 treatments of dialysis. I have had a lengthy discussion with the patient and the family and they are in agreement. TIAGO / WILLIAM: [id number] /
[2017-07-22] MEDS: SODIUM CHLORIDE 0.9% 1,000 ML IV SCH (18:17)
--- NOTE | 2017-07-22 22:28 | PN ---
PROGRESS NOTE DATE OF SERVICE: 07/22/2017 REASON FOR FOLLOWUP: Colitis and persistent elevated white count. INTERVAL HISTORY: The patient is afebrile, breathing comfortably. Denies any chest pain. Some nausea, but no vomiting. Overall, diarrhea seems to have improved. EXAMINATION: Blood pressure is 125/60 with a pulse of 52, temperature 98.2. She is 98% on room air. GENERAL DESCRIPTION: A young female lying in bed in no distress. RESPIRATORY SYSTEM: Unlabored breathing. Clear to auscultation anteriorly. HEART: S1, S2. Regular rate and rhythm. ABDOMEN: Soft. No tenderness. LABS: Hemoglobin is 11.5, white count 20.2 with a BUN of 32, creatinine 9.40. DIAGNOSTIC IMPRESSION AND PLAN: Patient with admission to hospital with abdominal pain, nausea, vomiting and diarrhea with evidence of colitis, likely infectious, though so far culture has been negative. The patient is on Cipro and Flagyl, did have persistent elevated white count. Antibiotic will be adjusted to the Rocephin and Flagyl will be continued. Repeat a CBC tomorrow. Continue supportive care. MMODL / IJN: [id number] /
[2017-07-23] MEDS: ONDANSETRON 4 MG/2 ML VIAL IVP PRN (04:10)
[2017-07-23 06:05] LABS: CH 31.9; HCT 34.5 % (34.0-46.0); HDW 2.46; MCH 30.9 pg (25.0-35.0); MCHC 31.8 g/dL (31.0-37.0); MCV 97.1 fL (80.0-100.0); Mean Platelet Volume 6.9; RBC 3.56 m/uL (3.80-5.40); WBC 21.7 k/uL (3.8-10.6)
[2017-07-23 06:32] LABS: Calcium 7.7 mg/dL (8.4-10.2); Potassium 3.4 mmol/L (3.5-5.1); Total Bilirubin 0.2 mg/dL (0.2-1.3); Total Protein 5.3 g/dL (6.3-8.2)
[2017-07-23] MEDS: SODIUM CHLORIDE 0.9% 1,000 ML IV SCH ×2 (08:11→23:39)
[2017-07-23 08:35] LABS: Add Differential Manual Differential
[2017-07-23 08:41] LABS: Metamyelocytes % 1 %; Nucleated Red Blood Cells 0 /100 WBC (0-0)
[2017-07-23 08:51] LABS: Total Cells Counted 300
[2017-07-23 08:53] LABS: Manual Review Performed; RBC Morphology Normal
[2017-07-23 09:58] VITALS: BMI 26.5
--- NOTE | 2017-07-23 13:58 | P.PN ---
Subjective Patient is admitted for colitis and patient is on antibiotics in the from of cephalexin and metronidazole patient is also being treated for acute kidney injury most probably acute tubular necrosis, no significant improvement creatinine continued to worsen repeat lites and kidney function are being obtained tomorrow nephrology is following the patient. Her abdominal pain and diarrhea resolved. 2016 Endocrine no overnight events patient's creatinine fairly stabilized and presently 9.6 monitoring patient is diuresing. Constitutional: Denied any fatigue denied any fever. Cardio vascular: denied any chest pain, palpitations Gastrointestinal denied any nausea vomiting Pulmonary: Denied any shortness of breath cough Neurologic denied any new focal deficits Objective - Vital Signs Vital signs: Vital Signs Temp 97.9 F 07/23/17 10:57 Pulse 50 L 07/23/17 10:57 Resp 16 07/23/17 10:57 BP 134/70 07/23/17 10:57 Pulse Ox 95 07/23/17 10:57 Intake & Output 07/22/17 07/23/17 07/23/17 18:59 06:59 18:59 Intake Total 480 870 Output Total 202 800 Balance 278 70 Weight 78.9 kg 81.6 kg 81.6 kg Intake: Intake, IV Titration 750 Amount Sodium Chloride 0.9% 1, 750 000 ml @ 75 mls/hr IV . [id number] [facility] Rx#:[id number] Oral 480 120 Output: Urine 152 800 Stool 50 Other: Voiding Method Toilet Toilet # Voids 2 - Exam PHYSICAL EXAMINATION: GENERAL: The patient is alert and oriented x3, not in any acute distress. Well developed, well nourished. HEENT: Pupils are round and equally reacting to light. EOMI. No scleral icterus. No conjunctival pallor. Normocephalic, atraumatic. No pharyngeal erythema. No thyromegaly. CARDIOVASCULAR: S1 and S2 present. No rubs, or gallops. There is a pansystolic murmur and aortic area PULMONARY: Chest is clear to auscultation, no wheezing or crackles. ABDOMEN: Soft, nontender, nondistended, normoactive bowel sounds. No palpable organomegaly. MUSCULOSKELETAL: No joint swelling or deformity. EXTREMITIES: No cyanosis, clubbing, or pedal edema. NEUROLOGICAL: Gross neurological examination did not reveal any focal deficits. SKIN: No rashes. - Labs CBC & Chem 7: 07/23/17 05:26 07/23/17 05:26 Labs: Abnormal Lab Results - Last 24 Hours (Table) 07/23/17 07/23/17 Range/Units 05:26 05:26 WBC 21.7 H (3.8-10.6) k/uL RBC 3.56 L (3.80-5.40) m/uL Hgb 11.0 L (11.4-16.0) gm/dL Neutrophils # (Manual) 16.71 H (1.3-7.7) k/uL Monocytes # (Manual) 2.82 H (0-1.0) k/uL Metamyelocytes # (Man) 0.22 H (0) k/uL Sodium 136 L (137-145) mmol/L Potassium 3.4 L (3.5-5.1) mmol/L Chloride 97 L (98-107) mmol/L Carbon Dioxide 31 H (22-30) mmol/L BUN 34 H (7-17) mg/dL Creatinine 9.60 H* (0.52-1.04) mg/dL Glucose 105 H (74-99) mg/dL Calcium 7.7 L (8.4-10.2) mg/dL Total Protein 5.3 L (6.3-8.2) g/dL Albumin 2.5 L (3.5-5.0) g/dL Microbiology - Last 24 Hours (Table) 07/16/17 16:23 Blood Culture - Final Blood No Growth after 144 hours Assessment and Plan Plan: #1 nonoliguric acute kidney injury. Possible ATN due to sepsis and nausea vomiting diarrhea on admission.. Also contrast nephropathy and vancomycin toxicity is being considered. Eosinophils in the urine 0. Kidney function fairly stabilized can you to monitor #2 sepsis secondary to colitis possible infectious versus inflammatory, continue with antibiotics #3 Aspleenia, possibly congenital along with congenital heart disease #4 tetralogy of Fallot 5 history of PCI in 2010 #6 hypokalemia: Replace potassium
[2017-07-23] MEDS: ACETAMINOPHEN TAB 325 MG TAB PO PRN (14:02)
--- NOTE | 2017-07-23 14:12 | PN ---
PROGRESS NOTE DATE OF SERVICE: 07/23/2017 REASON FOR FOLLOWUP: Colitis, possibly infectious and elevated white count. INTERVAL HISTORY: The patient is afebrile. Overall, the patient is feeling better. Breathing comfortably. Denies any chest pain, shortness of breath or cough. No abdominal pain, did have small bowel movement. No nausea, vomiting and no diarrhea. PHYSICAL EXAMINATION: Initial blood pressure 134/70 with a pulse of 50, temperature 97.9. She is 95% on room air. General description is a middle-aged female, lying in bed in no distress. RESPIRATORY SYSTEM: Unlabored breathing, clear to auscultation anteriorly. HEART: S1, S2. Regular rate and rhythm. ABDOMEN: Soft, no tenderness. LABS: Creatinine of 9.0. White count is elevated to 21.7. Stool culture has been negative. Blood culture negative. DIAGNOSTIC IMPRESSION AND PLAN: Patient admitted to the hospital with colitis with concern for likely infectious etiology. Unfortunately, the patient developed acute renal failure, currently being monitored by the Nephrology. So far all the cultures have been negative and has received antibiotic for about 7 days, that should be enough. Will recommend no antibiotic on discharge and watching her clinical course closely. Family present at the bedside. Their questions were answered. MMODL / IJN: [id number] /
[2017-07-23] MEDS ORDERED: FUROSEMIDE 10 MG/ML 10 ML VIAL IV STA (15:43)
[2017-07-23] MEDS: metroNIDAZOLE 500 MG TAB PO SCH ×3 (15:52→20:46)
--- NOTE | 2017-07-23 16:12 | PN ---
PROGRESS NOTE The patient is seen for followup for acute kidney injury. This morning she states she is feeling better. She was able to eat and keep some food down. Her creatinine did go up only slightly from 9.4-9.6. Urine output also improved. We have about 1000 mL for 24 hours. I have advised the patient we can wait for another day and repeat labs in a.m. We can hold off on hemodialysis as of today. EXAMINATION: Blood pressure is 134/70, heart rate 50 per minute. She is afebrile. Examination of the heart S1, S2. Examination of the lungs bilateral breath sounds are heard. Abdomen is soft, nontender. Examination lower extremity shows no significant edema. [employer] exam is grossly intact. LABS: Labs shows serum creatinine 9.6, sodium 136, potassium 3.4, BUN 34, hemoglobin 11.0 g/dL. ASSESSMENT: 1. Acute kidney injury, most likely acute tubular necrosis versus acute kidney injury from vancomycin toxicity. Urine output has improved and there was only a 0.2 mg per dL increase in the creatinine from yesterday. Therefore, we can wait another day and we do not need to start dialysis today. I have advised the patient that she may still need to start if her renal function does not stabilize or start to improve. We will continue with the fluids for now and repeat another dose of Lasix today. 2. Hyperphosphatemia secondary to renal failure. 3. Hypokalemia currently being replaced. 4. Fever, sepsis on initial admission, all cultures currently negative. Maintained on antibiotics and clinically improved. 5. History of Fallot's tetralogy. PLAN: Repeat labs in a.m. Hold off on dialysis today. Check phosphorus. Continue IV fluids. MMODL / IJN: [id number] /
[2017-07-23] MEDS: cefTRIAXone IN SWFI 1,000 MG/10 ML SYRINGE IVP SCH (17:27)
[2017-07-24 06:06] LABS: Basophils # (A) 0.1 k/uL (0-0.2); Basophils % (A) 0 %; CH 30.5; CHCM 32.1; Eosinophils # (A) 0.2 k/uL (0-0.7); Eosinophils % (A) 1 %; HCT 31.8 % (34.0-46.0); HDW 2.37; HGB 10.6 gm/dL (11.4-16.0); Luc # (Auto) 0.32; Luc % (Auto) 2; Lymphocytes # (A) 1.9 k/uL (1.0-4.8); Lymphocytes % (A) 9 %; MCH 31.8 pg (25.0-35.0); MCHC 33.3 g/dL (31.0-37.0); MCV 95.5 fL (80.0-100.0); Mean Platelet Volume 7.6; Monocytes # (A) 2.2 k/uL (0-1.0); Monocytes % (A) 10 %; Neutrophils # (A) 17.1 k/uL (1.3-7.7); Neutrophils % (A) 79 %; RBC 3.33 m/uL (3.80-5.40); WBC 21.7 k/uL (3.8-10.6); WBC (Perox) 22.43
[2017-07-24 06:18] LABS: Calcium 7.6 mg/dL (8.4-10.2); Phosphorus 4.8 mg/dL (2.5-4.5); Potassium 3.5 mmol/L (3.5-5.1)
[2017-07-24] MEDS: SODIUM CHLORIDE 0.9% 1,000 ML IV SCH ×2 (08:18→23:49)
[2017-07-24] MEDS: cefTRIAXone IN SWFI 1,000 MG/10 ML SYRINGE IVP SCH (08:19)
[2017-07-24] MEDS ORDERED: POTASSIUM CHLORIDE ER 20 MEQ TAB.ER PO STA (09:26)
--- NOTE | 2017-07-24 09:26 | P.PN ---
Subjective Patient is seen in follow-up for acute kidney injury. Baseline creatinine is 1 and peaked at 9.6 yesterday. It's a little improved and is down to 9.3 today. Her urine output is documented as over 2 L the last 24 hours. Patient is currently sitting up in bed. Oral intake is good. Admits to good urine output without any hematuria or dysuria. Denies nausea or vomiting. She is currently being treated for colitis with antibiotics. Vital signs are stable. General: The patient appeared well nourished and normally developed. HEENT: Head exam is unremarkable. Neck is without jugular venous distension. LUNGS: Lungs are clear to auscultation and percussion. Breath sounds decreased. HEART: Rate and Rhythm are regular. First and second heart sounds normal. No murmurs, rubs or gallops. ABDOMEN: Abdominal exam reveals normal bowel sounds. Non-tender and non- distended. No evidence of peritonitis. EXTREMITITES: No clubbing, cyanosis, or edema. Objective - Vital Signs Vital signs: Vital Signs Temp 98.3 F 07/23/17 20:00 Pulse 60 07/24/17 04:00 Resp 18 07/24/17 04:00 BP 123/63 07/24/17 04:00 Pulse Ox 95 07/24/17 04:00 Intake & Output 07/23/17 07/24/17 07/24/17 18:59 06:59 18:59 Intake Total 525 0 Output Total 550 1775 Balance -550 -1250 0 Weight 81.6 kg 80.4 kg Intake: Intake, IV Titration 225 Amount Sodium Chloride 0.9% 1, 225 000 ml @ 75 mls/hr IV . [id number] [facility] Rx#:[id number] Oral 300 0 Output: Urine 550 1775 Other: Voiding Method Toilet # Voids 1 1 # Bowel Movements 0 - Labs CBC & Chem 7: 07/24/17 05:43 07/24/17 05:43 Labs: Abnormal Lab Results - Last 24 Hours (Table) 07/24/17 07/24/17 Range/Units 05:43 05:43 WBC 21.7 H (3.8-10.6) k/uL RBC 3.33 L (3.80-5.40) m/uL Hgb 10.6 L (11.4-16.0) gm/dL Hct 31.8 L (34.0-46.0) % Neutrophils # 17.1 H (1.3-7.7) k/uL Monocytes # 2.2 H (0-1.0) k/uL BUN 39 H (7-17) mg/dL Creatinine 9.30 H* (0.52-1.04) mg/dL Calcium 7.6 L (8.4-10.2) mg/dL Phosphorus 4.8 H (2.5-4.5) mg/dL Assessment and Plan Plan: Assessment: #1. Oliguric, now nonoliguric, acute kidney injury secondary to ischemic ATN secondary to vomiting and diarrhea along with a component of contrast-induced nephropathy. Also concern for vancomycin toxicity as she did receive 2 doses on admission, however no level was drawn initially. Creatinine peaked at 9.6 yesterday and is now starting to improve. Baseline creatinine is 1. No evidence of hydronephrosis. Urinalysis does reveal proteinuria which can be nonspecific in the setting of acute kidney injury. No hematuria. Serologic workup has been negative. #2. Colitis likely infectious maintained on antibiotics per infectious disease. #3. Metabolic acidosis secondary to acute kidney injury and IV fluids. Resolved. #4. Hypokalemia due to diuresis. Plan: Continue normal saline at 75 mL an hour. Replace potassium. 40 mEq today. Strict I's and O's. Avoid nephrotoxic agents and hypotensive episodes. Continue to monitor renal function and urine output closely. No need for renal replacement therapy at this time. Expect renal function to improve over the next few days. No signs of uremia or volume overload. Electrolytes stable.
[2017-07-24] MEDS: metroNIDAZOLE 500 MG TAB PO SCH ×3 (09:36→19:35)
--- NOTE | 2017-07-24 13:42 | P.PN ---
Subjective Progress Note Date: 07/24/17 progress note being dictated for Dr. Rhoades. Interval history:Patient is admitted for colitis and patient is on antibiotics in the from of cephalexin and metronidazole patient is also being treated for acute kidney injury most probably acute tubular necrosis, no significant improvement creatinine continued to worsen repeat lites and kidney function are being obtained tomorrow nephrology is following the patient. Her abdominal pain and diarrhea resolved. 2016 Endocrine no overnight events patient's creatinine fairly stabilized and presently 9.6 monitoring patient is diuresing. Constitutional: Denied any fatigue denied any fever. Cardio vascular: denied any chest pain, palpitations Gastrointestinal denied any nausea vomiting Pulmonary: Denied any shortness of breath cough Neurologic denied any new focal deficits 07/24/2017renal function mildly improved, 9.3. Maintained on IV fluid hydration with increased urine output. Ambulating in hallway, tolerating increase in exertion well. bradycardia and EKG ordered.maintained on antibiotics as per infectious disease. potassium 3.5 and being replaced. Denies chest pain, palpitations or increasing shortness of breath. Good diet intake, food brought in as she does not like the hospital food,no nausea vomiting or diarrhea.denies abdominal pain. Positive bowel movement. Objective - Vital Signs Vital signs: Vital Signs Temp 97.3 F L 07/24/17 11:51 Pulse 45 L 07/24/17 11:51 Resp 18 07/24/17 11:51 BP 138/78 07/24/17 11:51 Pulse Ox 97 07/24/17 11:51 Intake & Output 07/23/17 07/24/17 07/24/17 18:59 06:59 18:59 Intake Total 525 425 Output Total 550 1775 300 Balance -550 -1250 125 Weight 81.6 kg 80.4 kg Intake: Intake, IV Titration 225 425 Amount Sodium Chloride 0.9% 1, 225 425 000 ml @ 75 mls/hr IV . [id number] [facility] Rx#:[id number] Oral 300 0 Output: Urine 550 1775 300 Other: Voiding Method Toilet # Voids 1 1 # Bowel Movements 0 - Exam GENERAL: The patient is alert and oriented x3, not in any acute distress. Well developed, well nourished. HEENT: Pupils are round and equally reacting to light. EOMI. No scleral icterus. No conjunctival pallor. Normocephalic, atraumatic. No pharyngeal erythema. No thyromegaly. CARDIOVASCULAR: S1 and S2 present. No rubs, or gallops. There is a pansystolic murmur and aortic area PULMONARY: Chest is clear to auscultation, no wheezing or crackles. ABDOMEN: Soft, nontender, nondistended, normoactive bowel sounds. No palpable organomegaly. MUSCULOSKELETAL: No joint swelling or deformity. EXTREMITIES: No cyanosis, clubbing, or pedal edema. NEUROLOGICAL: Gross neurological examination did not reveal any focal deficits. SKIN: No rashes. - Labs CBC & Chem 7: 07/24/17 05:43 07/24/17 05:43 Labs: Abnormal Lab Results - Last 24 Hours (Table) 07/24/17 07/24/17 Range/Units 05:43 05:43 WBC 21.7 H (3.8-10.6) k/uL RBC 3.33 L (3.80-5.40) m/uL Hgb 10.6 L (11.4-16.0) gm/dL Hct 31.8 L (34.0-46.0) % Neutrophils # 17.1 H (1.3-7.7) k/uL Monocytes # 2.2 H (0-1.0) k/uL BUN 39 H (7-17) mg/dL Creatinine 9.30 H* (0.52-1.04) mg/dL Calcium 7.6 L (8.4-10.2) mg/dL Phosphorus 4.8 H (2.5-4.5) mg/dL Assessment and Plan Assessment: #1 nonoliguric acute kidney injury. Possible ATN due to sepsis and nausea vomiting diarrhea on admission.. Also contrast nephropathy and vancomycin toxicity is being considered. Eosinophils in the urine 0. #2 sepsis secondary to colitis possible infectious versus inflammatory #3 Aspleenia, possibly congenital along with congenital heart disease #4 tetralogy of Fallot 5 history of PCI in 2010 #6 hypokalemia: Replace potassium plan: Continue current medication regime ,monitoring.follow closely with nephrology and infectious disease.EKG pending. Discharge planning in progress, tentatively for tomorrow. The impression and plan of care has been dictated as directed. : I performed a history and examination of this patient, discussed the same with the dictator. I agree with the dictator's note ,documented as a scribe. Any additional findings or plans will be noted.
[2017-07-24] MEDS: ACETAMINOPHEN TAB 325 MG TAB PO PRN (19:35)
--- NOTE | 2017-07-24 20:39 | PN ---
PROGRESS NOTE DATE OF SERVICE: 07/24/2017. REASON FOR FOLLOWUP: Colitis, possible infectious. INTERVAL HISTORY: The patient is afebrile. She is breathing comfortably. Denies significant chest pain or shortness of breath or cough. Abdominal pain has resolved. Did have a formed bowel movement. EXAMINATION: Blood pressure 135/68 with a pulse of 68. Temperature 97.3. She is 97% on room air. General description is a young female lying in bed in no distress. RESPIRATORY SYSTEM: Unlabored breathing. Clear to auscultation anteriorly. HEART: S1, S2. Regular rate and rhythm. ABDOMEN: Soft, no tenderness. LABS: Hemoglobin is 10.6, white count of 21.7 with a BUN of 39, creatinine 9.30. DIAGNOSTIC IMPRESSION AND PLAN: Patient admitted to the hospital with acute nausea, vomiting, abdominal pain, diarrhea with concern for colitis, likely infectious. So far culture has been negative. The patient's symptom has resolved and no response of the white count to the addition of Rocephin and Rocephin will be discontinued. Keep a short course of oral Flagyl and will watch her white count and clinical condition closely. MMODL / IJN: [id number] /
[2017-07-25 07:13] LABS: Calcium 7.8 mg/dL (8.4-10.2); Magnesium 1.5 mg/dL (1.6-2.3)
[2017-07-25 07:59] LABS: Potassium 3.6 mmol/L (3.5-5.1)
[2017-07-25] MEDS ORDERED: POTASSIUM CHLORIDE ER 20 MEQ TAB.ER PO STA (08:16)
--- NOTE | 2017-07-25 08:17 | P.PN ---
Subjective Patient is seen in follow-up for acute kidney injury. Baseline creatinine is 1 and peaked at 9.6 yesterday. It is down to 7.8 today. She is nonoliguric. Patient is currently sitting up in bed. Oral intake is good. Admits to good urine output without any hematuria or dysuria. Denies nausea or vomiting. She is currently being treated for colitis with antibiotics. She is eager to go home. No active complaints at this time. Vital signs are stable. General: The patient appeared well nourished and normally developed. HEENT: Head exam is unremarkable. Neck is without jugular venous distension. LUNGS: Lungs are clear to auscultation and percussion. Breath sounds decreased. HEART: Rate and Rhythm are regular. First and second heart sounds normal. No murmurs, rubs or gallops. ABDOMEN: Abdominal exam reveals normal bowel sounds. Non-tender and non- distended. No evidence of peritonitis. EXTREMITITES: No clubbing, cyanosis, or edema. Objective - Vital Signs Vital signs: Vital Signs Temp 98.3 F 07/25/17 00:00 Pulse 44 L 07/25/17 04:00 Resp 18 07/25/17 04:00 BP 143/78 07/25/17 04:00 Pulse Ox 98 07/25/17 04:00 Intake & Output 07/24/17 07/25/17 07/25/17 18:59 06:59 18:59 Intake Total 665 1575 120 Output Total 800 550 600 Balance -135 1025 -480 Weight 80.9 kg Intake: Intake, IV Titration 425 675 Amount Sodium Chloride 0.9% 1, 425 675 000 ml @ 75 mls/hr IV . [id number] [facility] Rx#:[id number] Oral 240 900 120 Output: Urine 800 550 600 Other: Voiding Method Toilet - Labs CBC & Chem 7: 07/24/17 05:43 07/25/17 05:47 Labs: Abnormal Lab Results - Last 24 Hours (Table) 07/17/17 07/25/17 Range/Units 09:28 05:47 BUN 37 H (7-17) mg/dL Creatinine 7.80 H* (0.52-1.04) mg/dL Calcium 7.8 L (8.4-10.2) mg/dL Magnesium 1.5 L (1.6-2.3) mg/dL Stool Calprotectin >2000.0 H mcg/g Assessment and Plan Plan: Assessment: #1. Oliguric, now nonoliguric, acute kidney injury secondary to ischemic ATN secondary to vomiting and diarrhea along with a component of contrast-induced nephropathy. Also concern for vancomycin toxicity as she did receive 2 doses on admission, however no level was drawn initially. Creatinine peaked at 9.6 yesterday and is now starting to improve - down to 7.6 today. Baseline creatinine is 1. No evidence of hydronephrosis. Urinalysis does reveal proteinuria which can be nonspecific in the setting of acute kidney injury. No hematuria. Serologic workup has been negative. #2. Colitis likely infectious maintained on antibiotics per infectious disease. #3. Metabolic acidosis secondary to acute kidney injury and IV fluids. Resolved. #4. Hypokalemia due to urinary potassium wasting from recovering renal function. Magnesium also on the lower side. Plan: Continue normal saline at 75 mL an hour. Replace potassium. 40 mEq today. Replace magnesium. 2 g IV today. Avoid nephrotoxic agents and hypotensive episodes. She can be discharged today. She will need to get a repeat basic metabolic panel checked within 2-3 days of discharge and follow-up with her PCP in the next 1 week. She will also be need to be seen in the CKD clinic in the next 1- 2 weeks.
[2017-07-25] MEDS: MAGNESIUM SULFATE-D5W PMX 1 GM in DEXTROSE/WATER 1 100ML.BAG IVPB SCH ×2 (08:41→10:07)
[2017-07-25] MEDS: metroNIDAZOLE 500 MG TAB PO SCH (08:41)
[2017-07-25 08:48] VITALS: RESP 20
[2017-07-25 11:58] VITALS: BP 130/72; PULSE 49; TEMP 97.1
--- NOTE | 2017-07-25 13:01 | P.DS ---
Providers Date of admission: 07/16/17 15:56 Expected date of discharge: 07/25/17 Attending physician: Farzana Rhoades Consults: 07/17/17 16:42 Consult Physician Urgent Consulting Provider: Rebecca Ernst Consult Reason/Comments: COLITIS WITH ELEVATED WBC Do you want consulting provider notified?: Yes 07/19/17 08:36 Consult Physician Stat Consulting Provider: Dom Giles Consult Reason/Comments: critical serum creatinine and elevated BUN Do you want consulting provider notified?: Yes Primary care physician: [facility] Course: Final Diagnoses: #1 nonoliguric acute kidney injury. Possible ATN due to sepsis and nausea vomiting diarrhea on admission.. Also contrast nephropathy and vancomycin toxicity is being considered. Eosinophils in the urine 0. #2 sepsis secondary to colitis most likely infectious #3 Aspleenia, possibly congenital along with congenital heart disease #4 tetralogy of Fallot 5 history of PCI in 2010 #6 hypokalemia: Replace potassium Hospital course: This is a 26-year-old female admitted for colitis, acute kidney injury most probably acute tubular necrosis. Maintained on IV fluid hydration, antibiotics, Rocephin and metronidazole patient. Baseline creatinine 1, peaked at 9.6 and now down to 7.8. Non-oliguric. Evaluated by GI , infectious disease, nephrology. Significant clinical improvement. At discharge short term course of Flagyl only, as per ID. patient has been cleared by all consults for discharge. Patient is being discharged home in a stable condition with guarded prognosis, instructed on avoiding nephrotoxic agents and to follow-up with CKD clinic in the next week. The impression and plan of care has been dictated as directed. : I performed a history and examination of this patient, discussed the same with the dictator. I agree with the dictator's note ,documented as a scribe. Any additional findings or plans will be noted. Patient Condition at Discharge: Stable Plan - Discharge Summary Discharge Rx Participant: Yes New Discharge Prescriptions: New metroNIDAZOLE [Flagyl] 500 mg PO TID #15 tab No Action Aspirin 81 mg PO DAILY Discharge Medication List Aspirin 81 mg PO DAILY 03/08/14 [History] metroNIDAZOLE [Flagyl] 500 mg PO TID #15 tab 07/25/17 [Rx] Follow up Appointment(s)/Referral(s): Chris Loza MD [STAFF PHYSICIAN] - 2 Weeks Eun Isaac MD [STAFF PHYSICIAN] - As Needed Brian Cadena DO [Primary Care Provider] - 3 Days Activity/Diet/Wound Care/Special Instructions: Flagyl only as per ID no smoking
--- NOTE | 2017-07-25 14:44 | PN ---
PROGRESS NOTE DATE OF SERVICE: 07/25/2017. REASON FOR FOLLOWUP: Colitis and leukocytosis. INTERVAL HISTORY: The patient is afebrile. She is feeling better. Breathing comfortably. Denies any chest pain, shortness of breath, cough, no nausea, vomiting. No diarrhea. EXAMINATION: Blood pressure 132/72 with a pulse of 49, temperature of 97.1 she is 96% on room air. General description is a young female up in the bed in no distress. Respiratory system unlabored breathing. Clear to auscultation anteriorly. Heart S1, S2. Regular rate and rhythm. Abdomen soft, no tenderness. LABS: His creatinine is down to 7. No CBC was done today. DIAGNOSTIC IMPRESSION AND PLAN: 1. Patient with colitis, adequately treated. Currently, diarrhea has resolved. 2. Patient with leukocytosis could be reactive. 3. Recommend outpatient labs and continue supportive care. 4. Patient instructed if any worsening diarrhea or fever, to call us right away. MMODL / IJN: [id number] /
== END 2017-07-25 14:47 | disposition home or self-care (01) | DRG 871 ==
LOC: EC 12:31 → 6PED 15:56 → 6SEL 07-22 11:29
PROVIDERS: ADMIT Internal Medicine; ATTEND Internal Medicine
DX: A41.9 Sepsis, unspecified organism (principal); N17.0 Acute kidney failure with tubular necrosis; E87.2 Acidosis; K50.90 Crohn's disease, unspecified, without complications; A09 Infectious gastroenteritis and colitis, unspecified; E87.6 Hypokalemia; F17.200 Nicotine dependence, unspecified, uncomplicated; E83.39 Other disorders of phosphorus metabolism; N14.1 Nephropathy induced by other drugs, medicaments and biological substances; T36.8X5A Adverse effect of other systemic antibiotics, initial encounter; T50.2X5A Adverse effect of carbonic-anhydrase inhibitors, benzothiadiazides and other diuretics, initial encounter; T50.8X5A Adverse effect of diagnostic agents, initial encounter; Q89.01 Asplenia (congenital); Q21.3 Tetralogy of Fallot; Z83.3 Family history of diabetes mellitus; Z82.49 Family history of ischemic heart disease and other diseases of the circulatory system; Z80.9 Family history of malignant neoplasm, unspecified; Z79.82 Long term (current) use of aspirin; Z95.5 Presence of coronary angioplasty implant and graft
CPT/HCPCS: 36415; 71020; 74000; 74177; 76770; 80048; 80053; 80074; 80202; 81001; 81025; 82150; 82570; 83605; 83690; 83735; 83993; 84100; 84132; 84156; 85025; 85652; 86038; 86140; 86160; 86162; 86225; 86255; 87040; 87045; 87046; 87205; 87324; 87328; 87329; 89055; 96365; 96375; 99285

== ENCOUNTER 2017-09-14 14:58 | Inpatient (IN) | payer MEDICARE ==
[2017-09-14] MEDS ORDERED: KETOROLAC 30 MG/ML 1 ML VIAL IVP STA (15:32)
--- NOTE | 2017-09-14 15:38 | ED ---
Abdominal Pain HPI - General Chief Complaint: Abdominal Pain Stated Complaint: Abd Pain Time Seen by Provider: 09/14/17 15:16 Source: patient Mode of arrival: ambulatory Limitations: no limitations - History of Present Illness Initial Comments: Patient is a 26-year-old female presents with a chief complaint of abdominal pain and hematuria. Patient states her symptoms started about 3 days ago. She cannot identify any inciting incidences. There are no aggravating or alleviating factors. She characterizes her abdominal pain as an ache. She admits to nausea and vomiting around midnight. Patient denies any other symptoms at this time. Patient has a history of tetralogy of flow, the patient states that the last time she had a CAT scan they found that she was asplenic. - Related Data Home Medications Medication Instructions Recorded Confirmed Aspirin EC [Ecotrin Low Dose] 81 mg PO DAILY 09/14/17 09/14/17 Allergies Allergy/AdvReac Type Severity Reaction Status Date / Time hydromorphone [From Dilaudid] Allergy Dyspnea Verified 09/14/17 15:44 iodine AdvReac Unknown Verified 09/14/17 15:44 Review of Systems ROS Statement: Those systems with pertinent positive or pertinent negative responses have been documented in the HPI. ROS Other: All systems not noted in ROS Statement are negative. Gastrointestinal: Reports: abdominal pain, nausea, vomiting, diarrhea Past Medical History Past Medical History: Chest Pain / Angina Additional Past Medical History / Comment(s): tetrology of fallot as , cardiac stent in jul 26, 2011 for reasons of having chest pain History of Any Multi-Drug Resistant Organisms: None Reported Past Surgical History: Heart Catheterization With Stent, Orthopedic Surgery Additional Past Surgical History / Comment(s): heart surgery repair of tetralogy of fallot--infancy (9 days). heart surgery with valve repair at 18 mths. cardiac cath with stent at 2010. left elbow surgery--at 6 yrs of age. oral surgery--at 5 yrs Past Anesthesia/Blood Transfusion Reactions: No Reported Reaction, Motion Sickness Date of Last Stent Placement:: jul 26, 2011 Past Psychological History: No Psychological Hx Reported Smoking Status: Former smoker Past Alcohol Use History: None Reported Past Drug Use History: None Reported - Past Family History Father Family Medical History: No Reported History Additional Family Medical History / Comment(s): back pain Mother Family Medical History: Cancer, Diabetes Mellitus, Hypertension Additional Family Medical History / Comment(s): MRSA, rt below knee amputation General Exam Limitations: no limitations General appearance: alert, in no apparent distress Head exam: Present: atraumatic, normocephalic ENT exam: Present: mucous membranes moist Respiratory exam: Present: normal lung sounds bilaterally Cardiovascular Exam: Present: regular rate, normal rhythm GI/Abdominal exam: Present: soft, tenderness (Patient has tenderness in the epigastric region). Absent: distended Rectal exam: Present: deferred Back exam: Absent: CVA tenderness (R), CVA tenderness (L) Neurological exam: Present: alert, oriented X3 Psychiatric exam: Present: normal affect, normal mood Skin exam: Present: warm, dry, intact Course Vital Signs 09/14/17 09/14/17 15:10 16:01 Temperature 99.5 F 100.3 F H Pulse Rate 98 Respiratory 18 18 Rate Blood Pressure 128/79 O2 Sat by Pulse 99 Oximetry Medical Decision Making - Medical Decision Making Patient presents with a chief complaint of abdominal pain and hematuria. On initial evaluation, vital signs are stable. Patient is in no acute distress. She will have basic lab work including urinalysis and hCG. Imaging will be decided pending labs. Lab evaluation of this patient shows a leukocytosis of 28.8 with evidence of hematuria without infection. Computed tomography scan of the abdomen and pelvis without contrast shows extensive colitis with possible small bowel involvement. On reevaluation, patient is febrile. She does state that her pain is improved. At this time, the patient started on Rocephin and Flagyl. I spoke with [facility] [employer] with Dr. Ewing who accepts admission of this patient. Care plan was reviewed with the patient, she is agreeable. - Lab Data Result diagrams: 09/14/17 15:50 09/14/17 15:50 Lab Results 09/14/17 09/14/17 09/14/17 Range/Units 15:30 15:30 15:50 WBC 28.8 H* (3.8-10.6) k/uL RBC 4.26 (3.80-5.40) m/uL Hgb 13.1 (11.4-16.0) gm/dL Hct 40.2 (34.0-46.0) % MCV 94.4 (80.0-100.0) fL MCH 30.8 (25.0-35.0) pg MCHC 32.6 (31.0-37.0) g/dL RDW 14.6 (11.5-15.5) % Plt Count 426 (150-450) k/uL Neutrophils % 85 % Lymphocytes % 8 % Monocytes % 4 % Eosinophils % 1 % Basophils % 1 % Neutrophils # 24.5 H (1.3-7.7) k/uL Lymphocytes # 2.2 (1.0-4.8) k/uL Monocytes # 1.2 H (0-1.0) k/uL Eosinophils # 0.2 (0-0.7) k/uL Basophils # 0.2 (0-0.2) k/uL Sodium (137-145) mmol/L Potassium (3.5-5.1) mmol/L Chloride (98-107) mmol/L Carbon Dioxide (22-30) mmol/L Anion Gap mmol/L BUN (7-17) mg/dL Creatinine (0.52-1.04) mg/dL Est GFR (MDRD) Af Amer (>60 ml/min/1.73 sqM) Est GFR (MDRD) Non-Af (>60 ml/min/1.73 sqM) Glucose (74-99) mg/dL Calcium (8.4-10.2) mg/dL Total Bilirubin (0.2-1.3) mg/dL AST (14-36) U/L ALT (9-52) U/L Alkaline Phosphatase (38-126) U/L Total Protein (6.3-8.2) g/dL Albumin (3.5-5.0) g/dL Lipase (23-300) U/L HCG, Qual Not Detected Urine Color Dark Yellow Urine Appearance Cloudy H (Clear) Urine pH 6.5 (5.0-8.0) Ur Specific [place] 1.027 (1.001-1.035) Urine Protein 2+ H (Negative) Urine Glucose (UA) Negative (Negative) Urine Ketones 1+ H (Negative) Urine Blood Small H (Negative) Urine Nitrite Negative (Negative) Urine Bilirubin Negative (Negative) Urine Urobilinogen <2.0 (<2.0) mg/dL Ur Leukocyte Esterase Negative (Negative) Urine RBC 30 H (0-5) /hpf Urine WBC 7 H (0-5) /hpf Ur Squamous Epith Cells 7 H (0-4) /hpf Urine Bacteria Occasional H (None) /hpf Hyaline Casts 5 H (0-2) /lpf Urine Mucus Many H (None) /hpf 09/14/17 Range/Units 15:50 WBC (3.8-10.6) k/uL RBC (3.80-5.40) m/uL Hgb (11.4-16.0) gm/dL Hct (34.0-46.0) % MCV (80.0-100.0) fL MCH (25.0-35.0) pg MCHC (31.0-37.0) g/dL RDW (11.5-15.5) % Plt Count (150-450) k/uL Neutrophils % % Lymphocytes % % Monocytes % % Eosinophils % % Basophils % % Neutrophils # (1.3-7.7) k/uL Lymphocytes # (1.0-4.8) k/uL Monocytes # (0-1.0) k/uL Eosinophils # (0-0.7) k/uL Basophils # (0-0.2) k/uL Sodium 137 (137-145) mmol/L Potassium 3.3 L (3.5-5.1) mmol/L Chloride 99 (98-107) mmol/L Carbon Dioxide 24 (22-30) mmol/L Anion Gap 14 mmol/L BUN 9 (7-17) mg/dL Creatinine 0.65 (0.52-1.04) mg/dL Est GFR (MDRD) Af Amer >60 (>60 ml/min/1.73 sqM) Est GFR (MDRD) Non-Af >60 (>60 ml/min/1.73 sqM) Glucose 125 H (74-99) mg/dL Calcium 9.7 (8.4-10.2) mg/dL Total Bilirubin 0.8 (0.2-1.3) mg/dL AST 20 (14-36) U/L ALT 29 (9-52) U/L Alkaline Phosphatase 104 (38-126) U/L Total Protein 7.8 (6.3-8.2) g/dL Albumin 4.1 (3.5-5.0) g/dL Lipase 42 (23-300) U/L HCG, Qual Urine Color Urine Appearance (Clear) Urine pH (5.0-8.0) Ur Specific [place] (1.001-1.035) Urine Protein (Negative) Urine Glucose (UA) (Negative) Urine Ketones (Negative) Urine Blood (Negative) Urine Nitrite (Negative) Urine Bilirubin (Negative) Urine Urobilinogen (<2.0) mg/dL Ur Leukocyte Esterase (Negative) Urine RBC (0-5) /hpf Urine WBC (0-5) /hpf Ur Squamous Epith Cells (0-4) /hpf Urine Bacteria (None) /hpf Hyaline Casts (0-2) /lpf Urine Mucus (None) /hpf Disposition Clinical Impression: Colitis, Fever, Abdominal pain, Nausea and vomiting Disposition: ADMITTED IP TO THIS HOSP Condition: Good Referrals: Brian Cadena DO [Primary Care Provider] - 1-2 days Decision to Admit Reason: Admit from [facility] - Out of Hospital Transfer - Req. Specs Out of Hospital Transfer - Requested Specifics: Other Non-Acute
[2017-09-14 16:05] LABS: Basophils # (A) 0.2 k/uL (0-0.2); Basophils % (A) 1 %; Eosinophils # (A) 0.2 k/uL (0-0.7); Eosinophils % (A) 1 %; HCT 40.2 % (34.0-46.0); HGB 13.1 gm/dL (11.4-16.0); Lymphocytes # (A) 2.2 k/uL (1.0-4.8); Lymphocytes % (A) 8 %; MCH 30.8 pg (25.0-35.0); MCHC 32.6 g/dL (31.0-37.0); MCV 94.4 fL (80.0-100.0); Mean Platelet Volume 7.1; Monocytes # (A) 1.2 k/uL (0-1.0); Monocytes % (A) 4 %; Neutrophils # (A) 24.5 k/uL (1.3-7.7); Neutrophils % (A) 85 %; Platelet Count 426 k/uL (150-450); RBC 4.26 m/uL (3.80-5.40); RDW 14.6 % (11.5-15.5)
[2017-09-14 16:09] LABS: ALT 29 U/L (9-52); AST 20 U/L (14-36); Albumin 4.1 g/dL (3.5-5.0); Alkaline Phosphatase 104 U/L (38-126); Anion Gap 14 mmol/L; Blood Urea Nitrogen 9 mg/dL (7-17); Calcium 9.7 mg/dL (8.4-10.2); Carbon Dioxide 24 mmol/L (22-30); Chloride 99 mmol/L (98-107); Glucose 125 mg/dL (74-99); Lipase 42 U/L (23-300); Potassium 3.3 mmol/L (3.5-5.1); Sodium 137 mmol/L (137-145); Total Bilirubin 0.8 mg/dL (0.2-1.3); Total Protein 7.8 g/dL (6.3-8.2)
[2017-09-14 16:13] LABS: Bacteria,Urine Occasional /hpf; Mucus,Urine Many /hpf; RBC,Urine 30 /hpf (0-5); Squamous Epithelial Cell,Urine 7 /hpf (0-4); WBC,Urine 7 /hpf (0-5)
[2017-09-14 16:14] LABS: WBC 28.8 k/uL (3.8-10.6)
[2017-09-14 16:19] LABS: Appearance,Urine Cloudy (Clear); Bilirubin,Urine Negative (Negative); Blood,Urine Small (Negative); Color,Urine Dark Yellow; Glucose,Urine (UA) Negative (Negative); Hyaline Casts,Urine 5 /lpf (0-2); Ketones,Urine 1+ (Negative); Leukocyte Esterase,Urine Negative (Negative); Nitrite,Urine Negative (Negative); PH, Urine 6.5 (5.0-8.0); Protein,Urine 2+ (Negative); Specific Gravity,Urine 1.027 (1.001-1.035); Urobilinogen,Urine <2.0 mg/dL (<2.0)
--- NOTE | 2017-09-14 17:19 | CT ---
EXAMINATION TYPE: CT abdomen pelvis wo con DATE OF EXAM: 09/14/2017 HISTORY: Patient complains of LUQ pain, nausea, vomiting, and diarrhea. CT DLP: 807 mGycm. Automated Exposure Control for Dose Reduction was Utilized. TECHNIQUE: CT scan of the abdomen and pelvis is performed without oral or IV contrast. COMPARISON: CT abdomen and pelvis July 16, 2017 FINDINGS: Within the limitations of a non-contrast study, the following observations are made. LUNG BASES: No significant abnormality is appreciated. LIVER/GB: Liver is heterogeneously hypodense consistent with fatty infiltration. Persistent 2.5 cm lo w dense lesion adjacent to lobar fissure likely reflects more focal prominent fatty infiltration. Mas s lesion at this level is not excluded. No significant change from prior. PANCREAS: Pancreas is not well identified especially on noncontrast CT. SPLEEN: Spleen is not visualized and presumed congenitally or surgically absent. ADRENALS: No significant abnormality is seen. KIDNEYS: No renal stones or hydronephrosis is present bilaterally. Poorly distended bladder is subopt imally evaluated without intraluminal calculi. BOWEL: Exam is noted suboptimal due to lack of enteric contrast. Debris-filled stomach is present. Th ere is no suspicious small or large bowel dilatation. There is moderate wall thickening from rectum c ontiguously retrograde through sigmoid, left, transverse, and right colon with right colon abnormally medial position and cecum abnormally positioned in the central posterior pelvis axial image 106. Ter ana ileum is identified anteriorly on axial image 99. There is mild fat stranding in the transverse colon which is noted in the mid to lower abdomen. There is suspected mild wall thickening in the ter ana ileum. There is possible additional areas of wall thickening in ileal loops in the pelvis. GENITAL ORGANS: No gross abnormality seen. LYMPH NODES: No greater than 1cm abdominal or pelvic lymph nodes are appreciated. Seen best on adler l images are prominent but subcentimeter mesenteric lymph nodes, reference coronal image 28. OSSEOUS STRUCTURES: No significant abnormality is seen. OTHER: No significant additional abnormality is seen. IMPRESSION: Suboptimal study with Long segment contiguous moderate colitis from cecum to rectum even felt more prominent than prior study, inflammatory colitis such as ulcerative colitis would be favore d. Possibility of small bowel involvement cannot be excluded on this exam which would increase suspic ion for Crohn's disease. Correlate clinically. Differential includes infectious colitis and/or entero colitis.
[2017-09-14] MEDS ORDERED: NALOXONE 0.4 MG/ML 1 ML VIAL IV PRN (18:13)
[2017-09-14] MEDS ORDERED: MORPHINE SULFATE 5 MG/ML SYRINGE IV PRN (18:13)
[2017-09-14] MEDS ORDERED: metroNIDAZOLE 500 MG TAB PO STA (18:18)
[2017-09-14] MEDS ORDERED: cefTRIAXone IN SWFI 1,000 MG/10 ML SYRINGE IVP SCH (18:30)
[2017-09-14] MEDS: ONDANSETRON 4 MG/2 ML VIAL IVP PRN (20:07)
[2017-09-14] MEDS ORDERED: LEVOFLOXACIN 500MG-D5W PMX 500 MG in DEXTROSE/WATER 1 100ML.BAG IVPB SCH (21:00)
[2017-09-14] MEDS: KETOROLAC 30 MG/ML 1 ML VIAL IVP PRN (21:31)
[2017-09-14] MEDS: LACTATED RINGERS 1,000 ML IV SCH (21:57)
[2017-09-14] MEDS ORDERED: TEMAZEPAM 15 MG CAP PO PRN (22:04)
[2017-09-14] MEDS ORDERED: LORazepam 1 MG TAB PO PRN (22:04)
[2017-09-14 22:30] LABS: Amphetamine Screen,Urine Not Detected (NotDetected); Barbiturate Screen,Urine Not Detected (NotDetected); Benzodiazepines Screen,Urine Not Detected (NotDetected); Cocaine Screen,Urine Not Detected (NotDetected); Methadone Screen, Urine Not Detected (NotDetected); Opiate Screen,Urine Not Detected (NotDetected); Oxycodone Screen, Urine Not Detected (NotDetected); Phencyclidine Screen,Urine Not Detected (NotDetected); Tricyclic Antidepressant,Urine Not Detected (NotDetected); Urn Cannabinoid Scrn Detected (NotDetected)
[2017-09-14] MEDS ORDERED: diphenhydrAMINE 50 MG CAP PO PRN (22:51)
[2017-09-14 23:23] VITALS: BMI 22.1
[2017-09-14] MEDS ORDERED: diphenhydrAMINE 25 MG CAP ONE (23:33)
[2017-09-15 07:44] LABS: Basophils # (A) 0.1 k/uL (0-0.2); Basophils % (A) 0 %; Eosinophils # (A) 0.1 k/uL (0-0.7); Eosinophils % (A) 0 %; HCT 39.6 % (34.0-46.0); HGB 12.7 gm/dL (11.4-16.0); Lymphocytes # (A) 1.4 k/uL (1.0-4.8); Lymphocytes % (A) 5 %; MCH 30.6 pg (25.0-35.0); MCHC 32.1 g/dL (31.0-37.0); MCV 95.3 fL (80.0-100.0); Mean Platelet Volume 7.1; Monocytes # (A) 1.4 k/uL (0-1.0); Monocytes % (A) 5 %; Neutrophils # (A) 25.3 k/uL (1.3-7.7); Neutrophils % (A) 88 %; Platelet Count 410 k/uL (150-450); RBC 4.15 m/uL (3.80-5.40)
[2017-09-15] MEDS: HEPARIN SODIUM,PORCINE 5,000 UNIT/ML 1 ML VIAL SQ SCH ×2 (07:58→20:09)
[2017-09-15] MEDS: metroNIDAZOLE 500 MG TAB PO SCH ×3 (07:58→21:37)
[2017-09-15 08:05] LABS: Anion Gap 15 mmol/L; Blood Urea Nitrogen 13 mg/dL (7-17); Calcium 9.4 mg/dL (8.4-10.2); Carbon Dioxide 24 mmol/L (22-30); Chloride 99 mmol/L (98-107); Glucose 104 mg/dL (74-99); Potassium 3.2 mmol/L (3.5-5.1); Sodium 138 mmol/L (137-145)
[2017-09-15] MEDS: LACTATED RINGERS 1,000 ML IV SCH (08:07)
[2017-09-15] MEDS: ONDANSETRON 4 MG/2 ML VIAL IVP PRN ×2 (08:07→20:07)
[2017-09-15 08:24] LABS: WBC 28.7 k/uL (3.8-10.6)
[2017-09-15] MEDS ORDERED: Potassium Replacement Protocol 1 EACH MISC MISCELLANE PRN (10:55)
[2017-09-15 11:27] LABS: Toxic Granulation Present
[2017-09-15 11:28] LABS: Poikilocytosis (M) Present
--- NOTE | 2017-09-15 11:31 | HP ---
HISTORY AND PHYSICAL CHIEF COMPLAINTS: Abdominal pain as well as diarrhea. HISTORY OF PRESENT ILLNESS: This is a 26-year-old woman with a past medical history of multiple medical problems including history of CAD, history of heart disease repair, tetralogy of Fallot and apparently CAD stent, being followed by Dr. Cadena in the outpatient setting. Was recently admitted to [facility] with complaints of abdominal pain. The patient was thought to have sepsis secondary to colitis and thought to be infectious in origin and patient nonoliguric acute kidney injury and and patient was treated symptomatically. Patient improved significantly and the patient was discharged home. Currently, the patient was also seeing Gastroenterology during that admission. Currently, the patient is complaining of abdominal pain which is mostly in the left lower quadrant. Multiple episodes of diarrhea. Patient came to [facility] and was admitted for further evaluation and treatment. There is no history of fever or rigors. No history of headache, loss of consciousness. A CAT scan of the abdomen and pelvis was done which was suboptimal study with lots of segmental contiguous moderate colitis from cecum to rectum, ulcerative colitis was favored. Possibly a small is also suspected at this time. There is no history of fever, rigors. No history of headache, loss of consciousness or seizures. PAST MEDICAL HISTORY: History of chest pain, angina, tetralogy of Fallot, CAD, stent. Apparently, history of colitis. MEDICATIONS: Prior to admission include aspirin 81 mg daily. ALLERGIES: DILAUDID, IODINE. FAMILY HISTORY: History of cancer, diabetes, hypertension, MRSA, right below-knee amputation. SOCIAL HISTORY: History of alcohol, history of smoking. REVIEW OF SYSTEMS: ENT: No diminished hearing or diminished vision. CARDIOVASCULAR: No angina. RESPIRATORY: As mentioned earlier. GI: As mentioned earlier. : mentioned earlier. NERVOUS SYSTEM: No numbness or weakness. ALLERGY/IMMUNOLOGY: As mentioned earlier. MUSCULOSKELETAL: As mentioned earlier. RHEUMATOLOGY: As mentioned earlier. ENDOCRINE: No history of diabetes mellitus or hypothyroidism. CONSTITUTIONAL: As mentioned earlier. DERMATOLOGY: Negative. HEMATOLOGY/ONCOLOGY: Negative. PSYCHIATRY: As mentioned earlier. PHYSICAL EXAMINATION: Alert and oriented 3. Pulse 93, blood pressure 124/70, respiration 20, temperature 99.2, T-max 100.3, pulse ox 97% on room air. HEENT: Normal, oral mucosa moist. Neck is no jugular venous distention. No lymphs node enlargement. CARDIOVASCULAR SYSTEM: S1, S2, muffled. RESPIRATORY: Breath sounds diminished at the bases. A few scattered rhonchi. No crackles. ABDOMEN: Soft. Mild diffuse tenderness. Suspicion of the left lower lobe lower part present otherwise, no guarding, no rigidity, no mass palpable. LEGS: No edema, no swelling. NERVOUS SYSTEM: Higher functions as mentioned earlier, moves all 4 limbs, no focal motor signs lymphatics none Clinic skin no rashes. LABS: WBC 28.2, hemoglobin 13.1, sodium 130, potassium 3.3 UA noted assessment. 1. Acute diffuse colitis, possibly ulcerative colitis or Crohn disease with possible sepsis. 2. Increased WBC. 3. History of previous colitis and sepsis. 4. Hypokalemia. 5. History of tetralogy of Fallot repair. 6. History of CAD stent apparently. 7. History of psychological problems, on disability. RECOMMENDATION AND DISCUSSION: In this 26-year-old woman who presented with multiple complex medical issues. Will monitor patient closely. Continue with the current management and symptomatic treatment. Otherwise at this time, broad-spectrum IV antibiotics initiated. Will obtain the cultures, recommend a Gastroenterology and Infectious Disease evaluation. Possible endoscopies and biopsies. See the patient n.p.o. except for meds and guarded prognosis because of multiple complex medical issues and repeat labs will be ordered. Discussed with the patient and family who understands and further recommendations to follow. A copy is being forwarded to Dr. Cadena who is the primary physician. MMODL / MARILYNNN: [id number] / MTDAviva
[2017-09-15] MEDS: POTASSIUM CHLORIDE ER 20 MEQ TAB.ER PO SCH ×2 (13:37→14:50)
[2017-09-15] MEDS: cefTRIAXone IN SWFI 1,000 MG/10 ML SYRINGE IVP SCH (14:51)
[2017-09-15] MEDS: 0.9% NACL WITH KCL 20 MEQ/L 1,000 ML IV SCH (14:51)
--- NOTE | 2017-09-15 14:52 | CONS ---
CONSULTATION DATE OF CONSULTATION: 09/15/2017. REASON FOR CONSULTATION: Abdominal pain, diarrhea. HISTORY OF PRESENT ILLNESS: The patient is a 26 -year-old pleasant white female admitted to the hospital with acute onset of left lower quadrant abdominal pain followed by diarrhea as well as nausea, vomiting. She had at least 3 or 4 loose watery bowel movements for 2 days, came to the emergency room. In the ER, she had a CT of the abdomen and pelvis done that showed thickening of the entire colon suggestive of colitis. The patient was started on empiric antibiotics with IV Levaquin and Flagyl and today she is feeling better. She still has some vague left lower quadrant abdominal pain but diarrhea has resolved. Nausea and vomiting has completely subsided. She had low-grade fever before coming to the hospital. Now feeling much better. She had a similar episode in July of 2017 at which time she was hospitalized for a week and was treated with empiric antibiotics and discharged home. The symptoms at that time completely resolved. PAST MEDICAL HISTORY: Significant for tetralogy of Fallot, for which she had surgery done and history of coronary artery disease. MEDICATIONS: Prior to admission, aspirin. ALLERGIES: DILAUDID AND IODINE. SOCIAL HISTORY: Smoking and alcohol use. FAMILY HISTORY: Mother has diabetes and hypertension. REVIEW OF SYSTEMS: Cardiopulmonary: No chest pain. No shortness of breath. Genitourinary: No dysuria or hematuria. Cardiopulmonary: Unremarkable. Neurological: Unremarkable. Psychiatric: Unremarkable. ENT/Vision: Unremarkable. Constitutional: No recent weight loss. No fevers, chills or night sweats. Hematology: Unremarkable. Endocrine: Unremarkable. Psychiatric: Unremarkable. PHYSICAL EXAMINATION: She appears comfortable in no apparent distress. Vital signs stable. Blood pressure is 122/66, pulse rate 91, temperature 98. HEENT examination: Unremarkable. Conjunctivae pink. Sclerae anicteric. Oral cavity no lesions. Neck: No jugular venous distention or lymph node enlargement. Chest: Clear to auscultation. HEART: Regular rate and rhythm. ABDOMEN: Soft. Bowel sounds are positive. No organomegaly. Extremities: No pedal edema. Skin no rashes. NEUROLOGIC: Alert and oriented x3. No focal deficits. LAB DATA: Done at the time of admission to the hospital yesterday, WBC was 28.8 and today it is 28.7. Neutrophils, 25,000. Sedimentation rate is 78. Basic metabolic panel is within normal limits. C diff toxin negative. Other stool cultures are pending. IMPRESSION: This lady presents to the hospital with 5 days of acute onset of lower abdominal pain followed by diarrhea associated with nausea, vomiting, and CT scan showed diffuse thickening of the colon consistent with acute colitis. The patient had a similar episode in July of 2017 at which time she was hospitalized for a week and was treated empirically with antibiotics and had done well and the symptoms completely resolved. In fact, following discharge from the hospital in July, she did not have any recurrent episodes of diarrhea. At this time, it appears that most likely we are dealing with infectious colitis and not inflammatory bowel disease, but this cannot be entirely excluded. RECOMMENDATIONS: 1. Continue with IV empiric antibiotics. 2. If she continues to do well, she can be discharged home tomorrow with outpatient close followup and consideration for a colonoscopy on an outpatient basis based on symptoms. The plan was discussed with the patient and she is agreeable to it. Thank you for this consultation. TIAGO / MARILYNNN: [id number] /
[2017-09-15] MEDS: KETOROLAC 30 MG/ML 1 ML VIAL IVP PRN (15:16)
[2017-09-16] MEDS: 0.9% NACL WITH KCL 20 MEQ/L 1,000 ML IV SCH (04:22)
[2017-09-16 07:24] VITALS: BP 112/55; PULSE 86; RESP 18; TEMP 98.9
--- NOTE | 2017-09-16 08:05 | CONS ---
CONSULTATION DATE OF SERVICE: 09/15/2017 REASON FOR CONSULTATION: Colitis. HISTORY OF PRESENT ILLNESS: The patient is a 26-year-old female presenting to the ER at [facility] with chief complaints of left lower abdominal pain and diarrhea that started a few days prior to presentation to the hospital. Patient did have innumerable number of loose stools with very minimal blood and mucus in it. Pain is in low abdomen, is certainly more of colic in nature almost 6 out of 10 and no radiation. The patient did have some associated nausea with a small amount of vomiting. She did have a low -grade fever on arrival to the ER of 100.3. She also noted to have elevated white count. A CT of abdomen and pelvis has been suggestive of colitis. The patient has pain admitted to the hospital. She was started on Levaquin and Flagyl. ID was consulted for further recommendation regarding antibiotic therapy. She was recently admitted to [facility] with similar symptoms. At that time, cultures were negative. The patient subsequently improved with oral antibiotic therapy which the patient has been off for more than a month now. REVIEW OF SYSTEMS: CONSTITUTIONAL: Positive for weakness and low-grade fever. EYES: No complaint. ENT: No complaint. RESPIRATORY: No complaint. CARDIOVASCULAR: No complaint. GENITOURINARY: No complaint. GASTROINTESTINAL: As per HPI. MUSCULOSKELETAL: No complaint. INTEGUMENTARY: No complaint. PSYCHOLOGICAL: No complaint. ENDOCRINE: No complaint. NEUROLOGICAL: No complaint. PAST MEDICAL HISTORY: Significant for an episode of colitis, tetralogy of Fallot. She did have renal failure secondary to vancomycin on her last admission. PAST SURGICAL HISTORY: Heart catheterization with stent, repair of tetralogy of Fallot as an , left elbow surgery. SOCIAL HISTORY: Quit smoking a few years ago. Denies any drinking or drug use. FAMILY HISTORY: Father history of chronic back pain. Mother history of diabetes, hypertension, and cancer. ALLERGIES: Allergies to HYDROMORPHONE and IODINE. MEDICATION: Medications include the patient currently on Levaquin, Benadryl, heparin, Toradol, Ativan, Flagyl, Narcan, Zofran and Restoril. PHYSICAL EXAMINATION: On examination, blood pressure is 121/68 with a pulse of 86, temperature of 98.8. She is 97% on room air. General description is a young female lying in bed in no distress. No tachypnea or accessory muscle of respiration use. HEENT examination shows no pallor or scleral icterus. Oral mucous membrane is dry. No thrush NECK: Trachea central, no thyromegaly. LUNGS: Unlabored breathing, clear to auscultation anteriorly. HEART: S1, S2. Regular rate and rhythm. No murmur ABDOMEN: Soft, minimal tenderness left lower quadrant area. No guarding or rigidity. No organomegaly EXTREMITIES: No edema of the feet. SKIN EXAMINATION: No rash or mass palpable. NEUROLOGICALLY: Patient is awake, alert, oriented x3. Mood and affect normal. LABS: Hemoglobin is 12.7, white count 28.7 with a BUN of 13, creatinine 0.78. UA has been negative. Urine drug screen positive for marijuana. Stool for C diff has been negative. Stool culture currently pending. DIAGNOSTIC IMPRESSION AND PLAN: Patient with colitis presented to the hospital with abdominal pain, some hematochezia and low-grade fever, elevated white count, likely inflammatory bowel disease with clinical suspicion low for infectious colitis with similar presentation back in July 2017. However cannot be entirely excluded in view of some improvement with antibiotic therapy likely from enteric gram-negative both aerobe and anaerobes PLAN: 1. A stool culture has been requested and currently pending. 2. Antibiotic will be adjusted to Rocephin 1 g daily and Flagyl 500 mg every 8 hours. 3. The patient will benefit from a colonoscopy and biopsy to better define her underlying illness. 4. We will follow up on clinical condition and further adjust medication if needed. Thank you for this consultation. Will follow the patient along with you. MMODL / IJN: [id number] / RAFY
[2017-09-16] MEDS: HEPARIN SODIUM,PORCINE 5,000 UNIT/ML 1 ML VIAL SQ SCH (08:16)
[2017-09-16] MEDS: cefTRIAXone IN SWFI 1,000 MG/10 ML SYRINGE IVP SCH (08:16)
[2017-09-16] MEDS: ONDANSETRON 4 MG/2 ML VIAL IVP PRN (08:16)
[2017-09-16] MEDS: metroNIDAZOLE 500 MG TAB PO SCH (08:16)
[2017-09-16 08:55] LABS: Anion Gap 13 mmol/L; Blood Urea Nitrogen 14 mg/dL (7-17); Calcium 8.9 mg/dL (8.4-10.2); Carbon Dioxide 23 mmol/L (22-30); Chloride 105 mmol/L (98-107); Glucose 90 mg/dL (74-99); Potassium 3.7 mmol/L (3.5-5.1); Sodium 141 mmol/L (137-145)
[2017-09-16 09:19] LABS: Basophils # (A) 0.1 k/uL (0-0.2); Basophils % (A) 0 %; Eosinophils # (A) 0.1 k/uL (0-0.7); Eosinophils % (A) 0 %; HCT 38.1 % (34.0-46.0); HGB 12.1 gm/dL (11.4-16.0); Hypochromasia Slight; Lymphocytes # (A) 1.2 k/uL (1.0-4.8); Lymphocytes % (A) 6 %; MCH 30.5 pg (25.0-35.0); MCHC 31.7 g/dL (31.0-37.0); Mean Platelet Volume 7.3; Monocytes # (A) 1.2 k/uL (0-1.0); Monocytes % (A) 6 %; Neutrophils % (A) 86 %; Platelet Count 417 k/uL (150-450); RBC 3.97 m/uL (3.80-5.40); RDW 14.6 % (11.5-15.5); WBC 20.8 k/uL (3.8-10.6)
--- NOTE | 2017-09-16 10:38 | P.PN ---
Subjective Progress Note Date: 09/16/17 Principal diagnosis: Colitis Feels better. No diarrhea. Minimal abdominal pain. Requesting diet advanced. White count decreased to 20,000. Afebrile. Objective - Vital Signs Vital signs: Vital Signs Temp 98.9 F 09/16/17 07:00 Pulse 86 09/16/17 07:00 Resp 18 09/16/17 07:00 BP 112/55 09/16/17 07:00 Pulse Ox 97 09/16/17 07:00 Intake & Output 09/15/17 09/16/17 09/16/17 18:59 06:59 18:59 Intake Total 450 650 Balance 450 650 Intake: Intake, IV Titration 450 650 Amount 0.9% NaCl with KCl 20 Meq 650 /l 1,000 ml @ 75 mls/hr IV .[id number] TRE Rx#: [id number] Lactated Ringers 1,000 ml 450 @ 75 mls/hr IV .[id number] TRE Rx#:[id number] Other: Voiding Method Toilet Toilet Toilet # Voids 2 - Exam General appearance: The patient is alert, oriented, in no acute distress. HET: Head is normocephalic and atraumatic. Pupils are equal and reactive. Oropharynx is clear without lesions. Neck: Supple without lymphadenopathy. Trachea midline. Heart: S1 S2. Regular rate and rhythm. Lungs: No crackles or wheezes are heard. Abdomen: Soft, nontender, nondistended with bowel sounds. No peritoneal signs. No palpable organomegaly or masses. Extremities: Normal skin color and turgor. No cyanosis, rash, ulceration, clubbing, or edema. Radial and pedal pulses are 2/4 bilaterally. Neurological: No focal deficits. Strength and sensation are grossly intact. - Labs CBC & Chem 7: 09/16/17 08:07 09/16/17 08:07 Labs: Abnormal Lab Results - Last 24 Hours (Table) 09/15/17 09/16/17 Range/Units 07:13 08:07 WBC 28.7 H* 20.8 H (3.8-10.6) k/uL Neutrophils # 25.3 H 18.0 H (1.3-7.7) k/uL Monocytes # 1.4 H 1.2 H (0-1.0) k/uL Microbiology - Last 24 Hours (Table) 09/14/17 22:18 Blood Culture - Preliminary Blood No Growth after 24 hours 09/15/17 07:04 Stool Culture - Preliminary Stool 09/14/17 22:00 Urine Culture - Preliminary Urine,Clean Catch Assessment and Plan (1) Colitis Narrative/Plan: Possible self limiting infectious possible inflammatory Current Visit: Yes Status: Acute Code(s): K52.9 - NONINFECTIVE GASTROENTERITIS AND COLITIS, UNSPECIFIED SNOMED Code(s): 57554271 Plan: 1. Will advance to low residue diet. Continue with antibiotics for at least a week after discharge. Follow up in GI office in 2 weeks for reevaluation and discussion of possible outpatient colonoscopy. Discharge per medicine. Assessment and plan a care discussed with Dr. Isaac
--- NOTE | 2017-09-16 10:41 | PN ---
PROGRESS NOTE DATE OF SERVICE: 09/15/2017 This 26-year-old woman was admitted with significant diarrhea with abdominal discomfort and was considered to have colitis. The possibility of ulcerative colitis or Crohn's disease has been considered. With the patient improving, Dr. Isaac is recommending outpatient colonoscopy. No chest pain. No palpitations. No fever. PHYSICAL EXAM: Alert and oriented x3. Pulse 89, blood pressure 116/79, respirations 16, temperature is 98.2, pulse ox 97% on room air. HEENT: Conjunctivae normal. NECK: No jugular venous distension. CARDIOVASCULAR SYSTEM: S1, S2, muffled. RESPIRATORY: Breath sounds diminished at the bases, a few scattered rhonchi, no crackles. Abdomen is soft, nontender. LEGS: No edema, no swelling. NERVOUS SYSTEM: No focal deficits. LABS: WBC 28.7, sodium 130, potassium 3.2. ASSESSMENT: 1. Acute diffuse colitis, possible ulcerative colitis, Crohn's disease with possible sepsis. 2. Increased WBC. 3. History of previous colitis and sepsis. 4. Hypokalemia. 5. History of tetralogy of Fallot repair. 6. History of coronary artery disease with stent apparently. 7. History of psychological problems, on disability. RECOMMENDATION: Recommend to continue current management. Continue with the montioring and symptomatic treatment. Otherwise, monitor patient closely. The cultures are negative so far and will continue to monitor. Prognosis guarded. Further recommendations to follow. MMODL / IJN: [id number] /
--- NOTE | 2017-09-16 14:56 | PN ---
PROGRESS NOTE DATE OF SERVICE: 09/16/2017. REASON FOR FOLLOWUP: Colitis with question of infectious. INTERVAL HISTORY: The patient is afebrile. She is feeling much better, breathing comfortably. Her abdominal pain is resolved. She did have small bowel movement. No blood in the stool. No nausea, no vomiting, and wants to go home. EXAMINATION: Blood pressure 112/55 with a pulse of 83, temperature of 98.9, she is 97% on room air. General description is a young female lying in bed in no distress. Respiratory system unlabored breathing. Clear to auscultation anteriorly. Heart S1, S2. Regular rate and rhythm. Abdomen soft, no tenderness. Extremities: No edema of the feet. LABS: White count down to 20.8 with a BUN of 14, creatinine 0.67. Stool culture so far negative. DIAGNOSTIC IMPRESSION AND PLAN: Patient with colitis with question of possible infectious etiology. Overall responding to Rocephin and Flagyl. The patient has been insisting on going home. She may be sent home on Ceftin and Flagyl combination for at least 2 weeks with close outpatient followup. MMODL / IJN: [id number] /
--- NOTE | 2017-09-17 08:36 | DS ---
DISCHARGE SUMMARY DATE OF SERVICE: 09/16/2017. FINAL DIAGNOSES: 1. Acute diffuse colitis, possible ulcerative colitis or Crohn disease with possible sepsis. 2. Increased WBC. 3. History of previous colitis and sepsis. 4. Hypokalemia. 5. History of tetralogy of Fallot repair. 6. History of coronary artery disease, stent apparently. 7. History of psychological problems, on disability. DISCHARGE DISPOSITION: The patient will be discharged in stable condition with guarded prognosis. HISTORY OF PRESENT ILLNESS: This 26-year-old woman with past medical history of multiple medical problems admitted with acute diffuse colitis, treated with antibiotics, improved significantly. The patient follows with Dr. Cadena in the outpatient setting. Gastroenterology and Infectious Disease saw the patient. The patient will be discharged in stable condition with guarded prognosis. DISCHARGE ADVICE: 1. Diet is cardiac, soft. 2. Activity limited until followup. 3. Follow up with Dr. Cadena in 2 to 3 days. 4. Follow up with Dr. Ernst as advised. 5. Follow up with Dr. Isaac as advised. MEDICATIONS: 1. Ceftin 500 mg p.o. b.i.d. for 2 weeks. 2. Flagyl 500 mg q.8 for 2 weeks. The patient for possible outpatient colonoscopy. Once again, the patient will be discharged in a stable condition with a guarded prognosis. MMALEJANDROL / MARILYNNN: [id number] /
== END 2017-09-16 13:40 | disposition home or self-care (01) | DRG 872 ==
LOC: EC 14:58 → 5MS5E 18:13
PROVIDERS: ADMIT Hospitalist; ATTEND Hospitalist
DX: A41.9 Sepsis, unspecified organism (principal); K51.90 Ulcerative colitis, unspecified, without complications; I25.10 Atherosclerotic heart disease of native coronary artery without angina pectoris; E87.6 Hypokalemia; R31.9 Hematuria, unspecified; Z87.74 Personal history of (corrected) congenital malformations of heart and circulatory system; Z95.5 Presence of coronary angioplasty implant and graft; Z87.891 Personal history of nicotine dependence; Z88.5 Allergy status to narcotic agent; Z88.8 Allergy status to other drugs, medicaments and biological substances
CPT/HCPCS: 36415; 74176; 80048; 80053; 80306; 81001; 82550; 83690; 84703; 85025; 85652; 86140; 87040; 87045; 87046; 87086; 87493; 96374; 96375; 99285

== ENCOUNTER 2017-12-12 14:10 | Observation (INO) | payer MEDICARE ==
[2017-12-12] MEDS ORDERED: ONDANSETRON 4 MG/2 ML VIAL IVP STA (15:43)
[2017-12-12] MEDS ORDERED: PANTOPRAZOLE 40 MG/10 ML VIAL IVP STA (15:43)
[2017-12-12] MEDS ORDERED: SODIUM CHLORIDE 0.9% 1,000 ML IV STA (15:43)
--- NOTE | 2017-12-12 15:49 | ED ---
General Adult HPI - General Chief complaint: Abdominal Pain Stated complaint: abd pain Time Seen by Provider: 12/12/17 15:29 Source: patient, family, RN notes reviewed, old records reviewed Mode of arrival: ambulatory Limitations: no limitations - History of Present Illness Initial comments: Chief complaint and history of present illness is a 27-year-old female here with her father. Patient reports that she's had on-again off-again bowel problems for the past 2 weeks she had loose stool followed by constipation. Father states he gave her 2 Ex-Lax and then 3 days later started having bowel movements has not stopped since then. Patient has a cramping to her abdomen. Occasionally becomes white and diaphoretic usually in the late afternoon. This morning she started vomiting while having bowel movements. No antibiotics lately. The patient was in hospital in September and discharged with diagnosis of colitis. - Related Data Home Medications Medication Instructions Recorded Confirmed No Known Home Medications [No 12/12/17 12/12/17 Known Home Medications] Allergies Allergy/AdvReac Type Severity Reaction Status Date / Time hydromorphone [From Dilaudid] Allergy Dyspnea Verified 12/12/17 15:12 Iodinated Contrast- Oral and AdvReac Unknown Verified 12/12/17 15:14 IV Dye iodine AdvReac Unknown Verified 12/12/17 15:12 Review of Systems ROS Statement: Those systems with pertinent positive or pertinent negative responses have been documented in the HPI. Review of systems. No headache or visual acuity changes denies any chest pain or shortness of breath she has abdominal cramping because of a cry at times. Loose stool for the past 3 or 4 days. Small flecks of blood noted in the stool. Decreased urinations. Nausea vomiting since 3 AM. Denies weakness or any neuro deficits. All systems reviewed. Past medical problems significant for tetralogy to follow with open-heart surgery Nahed 9 days old. She again had repeat surgery when she was 22 to have new larger adult sized heart valve placed. She's had left elbow surgery. Oral surgery. The patient has ALLERGIES to hydromorphone, iodinated contrast dye. Quit smoking 2 months ago. Denies alcohol use. Denies any chance been . Family history mother had non-Hodgkin's lymphoma. ROS Other: All systems not noted in ROS Statement are negative. Past Medical History Past Medical History: Chest Pain / Angina Additional Past Medical History / Comment(s): tetrology of fallot as infant, cardiac stent in jul 26, 2011 for reasons of having chest pain History of Any Multi-Drug Resistant Organisms: None Reported Past Surgical History: Heart Catheterization With Stent, Orthopedic Surgery Additional Past Surgical History / Comment(s): heart surgery repair of tetralogy of fallot--infancy (9 days). heart surgery with valve repair at 18 mths. cardiac cath with stent at 2010. left elbow surgery--at 6 yrs of age. oral surgery--at 5 yrs Past Anesthesia/Blood Transfusion Reactions: No Reported Reaction, Motion Sickness Date of Last Stent Placement:: jul 26, 2011 Past Psychological History: No Psychological Hx Reported Smoking Status: Former smoker Past Alcohol Use History: None Reported Past Drug Use History: None Reported - Past Family History Father Family Medical History: No Reported History Additional Family Medical History / Comment(s): back pain Mother Family Medical History: Cancer, Diabetes Mellitus, Hypertension Additional Family Medical History / Comment(s): MRSA, rt below knee amputation General Exam - General Exam Comments Initial Comments: General: The patient is awake and alert, here because she had nausea vomiting since 3 AM. Diarrhea starting 3 days ago. History of colitis in the past several months. Vital signs shows temperature 98.4 pulse 89 respiratory rate 18 blood pressure 116/65 , pulse ox 97% room air Eye: Pupils are equal, round and reactive to light, extra-ocular movements are intact ; there is normal conjunctiva bilaterally. No signs of icterus. Ears, nose, mouth and throat: There are moist mucous membranes and no oral lesions. Neck: The neck is supple, there is no tenderness, no anterior cervical lymphadenopathy , thyroid not enlarged. Cardiovascular: There is a regular rate and rhythm. Mechanical noise appreciated with auscultation of the heart. Respiratory: Lungs are clear to auscultation, respirations are non-labored, breath sounds are equal. No wheezes, stridor, rales, or rhonchi. Gastrointestinal: Soft, non-distended, mildly tender to deep palpation but no guarding or rebound pain. Active bowel sounds. Denies hemorrhoids. Stool to be collected for culture. Back: There is no tenderness to palpation in the midline. There is no obvious deformity. No rashes noted. No pain with kidney punch his. Musculoskeletal: Normal ROM, no tenderness, There is no pedal edema. There is no calf tenderness or swelling. Sensation intact. Neurological: No neuro deficits Skin: Skin is warm and dry and no rashes or lesions are noted. Psychiatric: Cooperative, Limitations: no limitations Course Vital Signs 12/12/17 14:28 Temperature 98.4 F Pulse Rate 89 Respiratory 18 Rate Blood Pressure 116/65 O2 Sat by Pulse 97 Oximetry Medical Decision Making - Medical Decision Making Medical decision making; patient's here because of nausea vomiting and diarrhea. Review of a previous chart states on CAT scan the patient was found to be a splenic. Previous admission the patient's white count significantly elevated at 28,000 range. On discharge admitted September the patient was placed on Ceftin 500 twice a day for 2 weeks and Flagyl 500 3 times a day for 2 weeks. Advised at that time to have a outpatient colonoscopy. The patient's labs show white count of 25,000, hemoglobin 12 hematocrit 36. INR 1.1, potassium 3.5 with BUN 5 creatinine 0.6 GFR greater than 90. Plasma lactic acid normal at 1.3. Amylase and lipase within normal limits. Urine shows 29 reds and 5 whites. She is not on her menstrual cycle. X-ray of the abdomen was done and reviewed by radiologist his findings are lung bases are clear. Median sternotomy wires and cage projecting at the AP window region. No evidence for free intraperitoneal air. A single prominent air- fluid loop of small bowel in the right midabdomen is a diameter 2.7 cm. Regional ileus is possible. No dilated small bowel or air-fluid levels. No significant stool burden. No suspicious calcifications identified. Impression overall nonobstructive bowel gas pattern. No free air. Solitary borderline distended small bowel loop in the right midabdomen could represent the regional ileus. As read by Dr. Vyas Patient be admitted to the hospital for continued IV hydration, IV antibiotics. Stool culture pending. C. diff pending. Patient be admitted to Dr. Rhoades - Lab Data Result diagrams: 12/12/17 16:00 12/12/17 16:00 Lab Results 12/12/17 12/12/17 12/12/17 Range/Units 16:00 16:00 16:00 WBC 25.5 H* (3.8-10.6) k/uL RBC 4.16 (3.80-5.40) m/uL Hgb 12.5 (11.4-16.0) gm/dL Hct 36.6 (34.0-46.0) % MCV 88.0 (80.0-100.0) fL MCH 30.0 (25.0-35.0) pg MCHC 34.1 (31.0-37.0) g/dL RDW 14.4 (11.5-15.5) % Plt Count 511 H (150-450) k/uL Neutrophils % 82 % Lymphocytes % 10 % Monocytes % 5 % Eosinophils % 1 % Basophils % 0 % Neutrophils # 21.0 H (1.3-7.7) k/uL Lymphocytes # 2.5 (1.0-4.8) k/uL Monocytes # 1.3 H (0-1.0) k/uL Eosinophils # 0.2 (0-0.7) k/uL Basophils # 0.1 (0-0.2) k/uL PT (9.0-12.0) sec INR (<1.2) Sodium 141 (137-145) mmol/L Potassium 3.5 (3.5-5.1) mmol/L Chloride 101 (98-107) mmol/L Carbon Dioxide 25 (22-30) mmol/L Anion Gap 15 mmol/L BUN 5 L (7-17) mg/dL Creatinine 0.60 (0.52-1.04) mg/dL Est GFR (CKD-EPI)AfAm >90 (>60 ml/min/1.73 sqM) Est GFR (CKD-EPI)NonAf >90 (>60 ml/min/1.73 sqM) Glucose 106 H (74-99) mg/dL Plasma Lactic Acid Gregorio 1.3 (0.7-2.0) mmol/L Calcium 9.6 (8.4-10.2) mg/dL Total Bilirubin 0.4 (0.2-1.3) mg/dL AST 13 L (14-36) U/L ALT 20 (9-52) U/L Alkaline Phosphatase 110 (38-126) U/L Total Protein 7.8 (6.3-8.2) g/dL Albumin 3.8 (3.5-5.0) g/dL Amylase 36 (30-110) U/L Lipase 53 (23-300) U/L Urine Color Urine Appearance (Clear) Urine pH (5.0-8.0) Ur Specific [place] (1.001-1.035) Urine Protein (Negative) Urine Glucose (UA) (Negative) Urine Ketones (Negative) Urine Blood (Negative) Urine Nitrite (Negative) Urine Bilirubin (Negative) Urine Urobilinogen (<2.0) mg/dL Ur Leukocyte Esterase (Negative) Urine RBC (0-5) /hpf Urine WBC (0-5) /hpf Ur Squamous Epith Cells (0-4) /hpf Urine Bacteria (None) /hpf Urine Mucus (None) /hpf 12/12/17 12/12/17 Range/Units 16:00 16:00 WBC (3.8-10.6) k/uL RBC (3.80-5.40) m/uL Hgb (11.4-16.0) gm/dL Hct (34.0-46.0) % MCV (80.0-100.0) fL MCH (25.0-35.0) pg MCHC (31.0-37.0) g/dL RDW (11.5-15.5) % Plt Count (150-450) k/uL Neutrophils % % Lymphocytes % % Monocytes % % Eosinophils % % Basophils % % Neutrophils # (1.3-7.7) k/uL Lymphocytes # (1.0-4.8) k/uL Monocytes # (0-1.0) k/uL Eosinophils # (0-0.7) k/uL Basophils # (0-0.2) k/uL PT 10.4 (9.0-12.0) sec INR 1.1 (<1.2) Sodium (137-145) mmol/L Potassium (3.5-5.1) mmol/L Chloride (98-107) mmol/L Carbon Dioxide (22-30) mmol/L Anion Gap mmol/L BUN (7-17) mg/dL Creatinine (0.52-1.04) mg/dL Est GFR (CKD-EPI)AfAm (>60 ml/min/1.73 sqM) Est GFR (CKD-EPI)NonAf (>60 ml/min/1.73 sqM) Glucose (74-99) mg/dL Plasma Lactic Acid Gregorio (0.7-2.0) mmol/L Calcium (8.4-10.2) mg/dL Total Bilirubin (0.2-1.3) mg/dL AST (14-36) U/L ALT (9-52) U/L Alkaline Phosphatase (38-126) U/L Total Protein (6.3-8.2) g/dL Albumin (3.5-5.0) g/dL Amylase (30-110) U/L Lipase (23-300) U/L Urine Color Yellow Urine Appearance Cloudy H (Clear) Urine pH 6.0 (5.0-8.0) Ur Specific [place] 1.025 (1.001-1.035) Urine Protein 1+ H (Negative) Urine Glucose (UA) Negative (Negative) Urine Ketones 1+ H (Negative) Urine Blood Small H (Negative) Urine Nitrite Negative (Negative) Urine Bilirubin Negative (Negative) Urine Urobilinogen <2.0 (<2.0) mg/dL Ur Leukocyte Esterase Negative (Negative) Urine RBC 29 H (0-5) /hpf Urine WBC 5 (0-5) /hpf Ur Squamous Epith Cells 10 H (0-4) /hpf Urine Bacteria Moderate H (None) /hpf Urine Mucus Many H (None) /hpf Disposition Clinical Impression: Colitis, Leukocytosis Disposition: ADMITTED IP TO THIS HOSP Condition: Serious Referrals: Brian Cadena DO [Primary Care Provider] - 1-2 days
[2017-12-12] MEDS ORDERED: metroNIDAZOLE-NS PMX 500 MG in SALINE 1 100ML.BAG IVPB STA (15:56)
[2017-12-12] MEDS ORDERED: cefTRIAXone 1,000 MG VIAL (IM USE) IM STA (15:56)
[2017-12-12] MEDS ORDERED: cefTRIAXone IN SWFI 1,000 MG/10 ML SYRINGE IVP STA (16:16)
[2017-12-12 16:31] LABS: Appearance,Urine Cloudy (Clear); Bacteria,Urine Moderate /hpf; Bilirubin,Urine Negative (Negative); Blood,Urine Small (Negative); Color,Urine Yellow; Glucose,Urine (UA) Negative (Negative); Ketones,Urine 1+ (Negative); Leukocyte Esterase,Urine Negative (Negative); Mucus,Urine Many /hpf; Nitrite,Urine Negative (Negative); Protein,Urine 1+ (Negative); RBC,Urine 29 /hpf (0-5); Specific Gravity,Urine 1.025 (1.001-1.035); Squamous Epithelial Cell,Urine 10 /hpf (0-4); Urobilinogen,Urine <2.0 mg/dL (<2.0); WBC,Urine 5 /hpf (0-5)
[2017-12-12 16:32] LABS: Basophils # (A) 0.1 k/uL (0-0.2); Basophils % (A) 0 %; Eosinophils # (A) 0.2 k/uL (0-0.7); Eosinophils % (A) 1 %; HCT 36.6 % (34.0-46.0); HGB 12.5 gm/dL (11.4-16.0); Lymphocytes # (A) 2.5 k/uL (1.0-4.8); Lymphocytes % (A) 10 %; MCHC 34.1 g/dL (31.0-37.0); Mean Platelet Volume 6.4; Monocytes # (A) 1.3 k/uL (0-1.0); Monocytes % (A) 5 %; Neutrophils % (A) 82 %; Platelet Count 511 k/uL (150-450); RBC 4.16 m/uL (3.80-5.40); RDW 14.4 % (11.5-15.5)
[2017-12-12 16:37] LABS: INR 1.1 (<1.2); Prothrombin Time 10.4 sec (9.0-12.0)
[2017-12-12 16:38] LABS: WBC 25.5 k/uL (3.8-10.6)
[2017-12-12 16:43] LABS: ALT 20 U/L (9-52); AST 13 U/L (14-36); Albumin 3.8 g/dL (3.5-5.0); Alkaline Phosphatase 110 U/L (38-126); Amylase 36 U/L (30-110); Anion Gap 15 mmol/L; Blood Urea Nitrogen 5 mg/dL (7-17); Calcium 9.6 mg/dL (8.4-10.2); Carbon Dioxide 25 mmol/L (22-30); Chloride 101 mmol/L (98-107); Glucose 106 mg/dL (74-99); Lipase 53 U/L (23-300); Potassium 3.5 mmol/L (3.5-5.1); Sodium 141 mmol/L (137-145); Total Bilirubin 0.4 mg/dL (0.2-1.3); Total Protein 7.8 g/dL (6.3-8.2)
--- NOTE | 2017-12-12 16:53 | XR ---
EXAMINATION TYPE: XR abdomen 2V DATE OF EXAM: 12/12/2017 CLINICAL DATA: 27-year-old female with abdominal pain, [facility] COMPARISON: 07/16/2017 FINDINGS: Lung bases are clear. Median sternotomy wires and cage projecting at the AP window region. No evidence for free intraperitoneal air. A single prominent air-filled loop of small bowel in the right mid abdomen has a diameter of 2.7 cm. A regional ileus is possible. No dilated small bowel or air-fluid levels. No significant stool burden . No suspicious calcifications identified. IMPRESSION: 1. Overall nonobstructive bowel gas pattern. No free air. 2. Solitary borderline distended small bowel loop in the right mid abdomen could represent a regional ileus.
[2017-12-12] MEDS ORDERED: NALOXONE 0.4 MG/ML 1 ML VIAL IV PRN (17:45)
[2017-12-12] MEDS ORDERED: ONDANSETRON 4 MG/2 ML VIAL IVP PRN (17:45)
[2017-12-12] MEDS ORDERED: predniSONE 20 MG TAB PO STA (18:31)
[2017-12-12] MEDS ORDERED: ACETAMINOPHEN TAB 325 MG TAB PO PRN (18:34)
[2017-12-12] MEDS ORDERED: MORPHINE SULFATE 4MG/4ML SYRG IVP PRN (18:35)
--- NOTE | 2017-12-12 20:16 | P.HPIM ---
History of Present Illness 27-year-old female here with her father. Patient reports that she's had on- again off-again bowel problems for the past 2 weeks she had loose stool followed by constipation. Patient has a cramping to her abdomen. Occasionally becomes white and diaphoretic usually in the late afternoon. This morning she started vomiting while having bowel movements. No antibiotics lately. The patient was in hospital in September and discharged with diagnosis of colitis. CAT scan that was done during her previous hospitalization showed diffuse colitis starting from the rectum involving the entire colon suspicious for ulcerative colitis. I'll consult gastro-oncology because of suspicion of ulcerative colitis patient will be given 1 dose of prednisone patient will be continued on antibiotics. C. diff testing was done which was negative. Patient was having multiple multiple episodes of diarrhea with few occasions of small amount of blood in the stools. Review of Systems REVIEW OF SYSTEMS: CONSTITUTIONAL: No fever, no malaise, no fatigue. HEENT: No recent visual problems or hearing problems. Denied any sore throat. CARDIOVASCULAR: No chest pain, orthopnea, PND, no palpitations, no syncope. PULMONARY: No shortness of breath, no cough, no hemoptysis. GASTROINTESTINAL: As mentioned in HPI NEUROLOGICAL: No headaches, no weakness, no numbness. HEMATOLOGICAL: Denies any bleeding or petechiae. GENITOURINARY: Denies any burning micturition, frequency, or urgency. MUSCULOSKELETAL/RHEUMATOLOGICAL: Denies any joint pain, swelling, or any muscle pain. ENDOCRINE: Denies any polyuria or polydipsia. The rest of the 14-point review of systems is negative. Past Medical History Past Medical History: Coronary Artery Disease (CAD), Chest Pain / Angina Additional Past Medical History / Comment(s): tetrology of fallot as , cardiac stent in jul 26, 2011 for reasons of having chest pain, past kidney failure 2016-resoleved. seasonal allergies.colitis History of Any Multi-Drug Resistant Organisms: None Reported Past Surgical History: Heart Catheterization With Stent, Orthopedic Surgery Additional Past Surgical History / Comment(s): heart surgery repair of tetralogy of fallot--infancy (9 days). heart surgery with valve repair at 18 mths. cardiac cath with stent at 2010. left elbow surgery--at 6 yrs of age. oral surgery--at 5 yrs, lt leg debridment 2014(pinned up against a car) Past Anesthesia/Blood Transfusion Reactions: No Reported Reaction, Motion Sickness Date of Last Stent Placement:: jul 26, 2011 Smoking Status: Former smoker - Past Family History Father Family Medical History: No Reported History Additional Family Medical History / Comment(s): back pain Mother Family Medical History: Cancer, Diabetes Mellitus, Hypertension Additional Family Medical History / Comment(s): MRSA, rt below knee amputation Medications and Allergies Home Medications Medication Instructions Recorded Confirmed Type No Known Home Medications [No 12/12/17 12/12/17 History Known Home Medications] Allergies Allergy/AdvReac Type Severity Reaction Status Date / Time hydromorphone [From Dilaudid] Allergy Dyspnea Verified 12/12/17 15:12 Iodinated Contrast- Oral and AdvReac Unknown Verified 12/12/17 15:14 IV Dye iodine AdvReac Unknown Verified 12/12/17 15:12 Physical Exam Vitals: Vital Signs Temp Pulse Resp BP Pulse Ox 12/12/17 18:13 98.0 F 78 18 138/77 100 12/12/17 14:28 98.4 F 89 18 116/65 97 Intake and Output 12/12/17 12/12/17 12/12/17 06:59 14:59 22:59 Other: Weight 79.832 kg PHYSICAL EXAMINATION: GENERAL: The patient is alert and oriented x3, not in any acute distress. Well developed, well nourished. HEENT: Pupils are round and equally reacting to light. EOMI. No scleral icterus. No conjunctival pallor. Normocephalic, atraumatic. No pharyngeal erythema. No thyromegaly. CARDIOVASCULAR: S1 and S2 present. No rubs, or gallops. There is a loud S2 and a systolic murmur in that area PULMONARY: Chest is clear to auscultation, no wheezing or crackles. ABDOMEN: Soft, minimal diffuse abdominal tenderness, nondistended, normoactive bowel sounds. No palpable organomegaly. MUSCULOSKELETAL: No joint swelling or deformity. EXTREMITIES: No cyanosis, clubbing, or pedal edema. NEUROLOGICAL: Gross neurological examination did not reveal any focal deficits. SKIN: No rashes. Results CBC & Chem 7: 12/12/17 16:00 12/12/17 16:00 Labs: Abnormal Lab Results - Last 24 Hours (Table) 12/12/17 12/12/17 12/12/17 Range/Units 16:00 16:00 16:00 WBC 25.5 H* (3.8-10.6) k/uL Plt Count 511 H (150-450) k/uL Neutrophils # 21.0 H (1.3-7.7) k/uL Monocytes # 1.3 H (0-1.0) k/uL BUN 5 L (7-17) mg/dL Glucose 106 H (74-99) mg/dL AST 13 L (14-36) U/L Urine Appearance Cloudy H (Clear) Urine Protein 1+ H (Negative) Urine Ketones 1+ H (Negative) Urine Blood Small H (Negative) Urine RBC 29 H (0-5) /hpf Ur Squamous Epith Cells 10 H (0-4) /hpf Urine Bacteria Moderate H (None) /hpf Urine Mucus Many H (None) /hpf Assessment and Plan Plan: -Abdominal pain, diarrhea: Most probably inflammatory bowel disease rather than infectious colitis patient will be started on one dose of prednisone gastric body will be consulted will continue with antiemetics. IV fluids -Tetralogy of follot: With subsequent surgery. , Leukocytosis: Secondary to colitis -Coronary artery disease
[2017-12-12] MEDS: HYDROcodone/APAP 5-325MG 1 EACH TAB PO PRN (20:22)
[2017-12-12] MEDS: SODIUM CHLORIDE 0.9% 1,000 ML IV SCH (20:22)
[2017-12-12] MEDS: metroNIDAZOLE-NS PMX 500 MG in SALINE 1 100ML.BAG IVPB SCH (23:27)
[2017-12-13] MEDS: SODIUM CHLORIDE 0.9% 1,000 ML IV SCH ×3 (05:23→17:48)
[2017-12-13 06:55] LABS: Basophils % (A) 0 %; Eosinophils % (A) 0 %; HCT 36.3 % (34.0-46.0); HGB 11.6 gm/dL (11.4-16.0); Lymphocytes # (A) 1.6 k/uL (1.0-4.8); Lymphocytes % (A) 9 %; MCH 29.6 pg (25.0-35.0); MCHC 32.1 g/dL (31.0-37.0); MCV 92.3 fL (80.0-100.0); Mean Platelet Volume 6.7; Monocytes # (A) 0.8 k/uL (0-1.0); Monocytes % (A) 4 %; Neutrophils # (A) 16.1 k/uL (1.3-7.7); Neutrophils % (A) 86 %; Platelet Count 512 k/uL (150-450); RBC 3.93 m/uL (3.80-5.40); RDW 14.7 % (11.5-15.5); WBC 18.8 k/uL (3.8-10.6)
[2017-12-13 07:17] LABS: ALT 17 U/L (9-52); AST 12 U/L (14-36); Albumin 3.2 g/dL (3.5-5.0); Alkaline Phosphatase 88 U/L (38-126); Anion Gap 12 mmol/L; Blood Urea Nitrogen 3 mg/dL (7-17); Calcium 8.8 mg/dL (8.4-10.2); Carbon Dioxide 23 mmol/L (22-30); Chloride 108 mmol/L (98-107); Glucose 110 mg/dL (74-99); Potassium 3.8 mmol/L (3.5-5.1); Sodium 143 mmol/L (137-145); Total Bilirubin 0.2 mg/dL (0.2-1.3); Total Protein 6.4 g/dL (6.3-8.2)
[2017-12-13] MEDS: HYDROcodone/APAP 5-325MG 1 EACH TAB PO PRN ×2 (07:50→21:21)
[2017-12-13] MEDS: PANTOPRAZOLE 40 MG/10 ML VIAL IV SCH (07:52)
[2017-12-13] MEDS: cefTRIAXone IN SWFI 1,000 MG/10 ML SYRINGE IVP SCH (08:27)
[2017-12-13] MEDS: metroNIDAZOLE-NS PMX 500 MG in SALINE 1 100ML.BAG IVPB SCH ×3 (08:30→23:07)
--- NOTE | 2017-12-13 13:15 | CONS ---
CONSULTATION REQUESTING PHYSICIAN: Dr. Brian Cadena. REASON FOR CONSULTATION: Abdominal pain, nausea, vomiting, and diarrhea. HISTORY OF PRESENT ILLNESS: The patient is a 27-year-old pleasant white female admitted to the hospital for abdominal discomfort associated with nausea, vomiting, and some diarrhea for the last 2 weeks duration. She has some cramping in her lower abdominal area, had a couple of episodes of emesis and then she had about 3-4 loose watery bowel movements. She came to the emergency room and was subsequently admitted to the hospital because of severe leukocytosis. She was started on empiric antibiotics and this morning she is feeling much better. In fact, abdominal pain has resolved. No more nausea, vomiting. She had only 1 bowel movement this morning. Stool for C diff toxin has been negative. The patient had 2 other hospitalizations for similar episodes, one in July of 2017 and one in September of 2017. Both times with similar symptoms. CT scan in September of this year showed diffuse colitis. She was treated with empiric antibiotics and the symptoms resolved within 2 or 3 days. She denies any fever, chills, night sweats. No family history of inflammatory bowel disease. No prior history of any colonoscopy in the past. PAST MEDICAL HISTORY: Significant for anxiety. 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 MEDICATIONS: At home none. ALLERGIES: DILAUDID, IV DYE. SOCIAL HISTORY: Former smoker. No alcohol use. FAMILY HISTORY: Father had chronic back pain. Mother has diabetes and hypertension and some kind of cancer. REVIEW OF SYSTEMS: CARDIOPULMONARY: No chest pain, shortness of breath. GENITOURINARY: No dysuria or hematuria. MUSCULOSKELETAL: Unremarkable. SKIN: Unremarkable. ENDOCRINE: Unremarkable. PSYCHIATRY: Unremarkable. NEUROLOGY: Unremarkable. ENT/VISION: Unremarkable. CONSTITUTIONAL: No recent weight loss. No fever, chills, night sweats. PHYSICAL EXAMINATION: She appears comfortable, no apparent distress. Vital signs is stable. Blood pressure 130/67, pulse is 70, temperature 98.2. HEENT examination unremarkable. Conjunctivae pink. Sclerae anicteric. Oral cavity no lesions. NECK: No jugular venous distention or lymph node enlargement. The chest was clear to auscultation. HEART: Regular rate and rhythm. Abdomen was soft, it was nontender, nondistended. Liver and spleen not palpable. Bowel sounds are positive. No organomegaly. EXTREMITIES: No pedal edema. SKIN: No rashes. NEUROLOGIC: Alert and oriented x3. No focal deficits. LABS: Yesterday WBC was 25.5, hemoglobin 12.5, platelets 511. Today, WBC 18.8, hemoglobin 11.6, platelets 512. Basic metabolic panel is within normal limits. CMP is normal. ALT, AST is normal. Amylase and lipase are normal. C-diff is negative IMPRESSION: This is a lady who presents to the hospital with abdominal pain mostly in the periumbilical area associated with some nausea, vomiting, and diarrhea on and off for the last 2 weeks duration. She was noted to have leukocytosis. C diff toxin has been negative. The patient had a similar episode in July of 2017 and in September of 2017, requiring hospitalization and both times was treated with empiric antibiotics and her symptoms significantly improved. In between episodes, she is asymptomatic. At this time I doubt that she has any inflammatory bowel disease, but this cannot be entirely excluded. RECOMMENDATIONS: 1. Advance diet as tolerated. 2. Continue empiric antibiotics. 3. Once she improves, she can be discharged home and I discussed with the patient that we will proceed with an EGD and colonoscopy on outpatient basis to investigate this further. She is agreeable with this plan. Thank you for this consultation. TIAGO / WILLIAM: [id number] /
[2017-12-13 14:21] VITALS: BMI 25.9
[2017-12-13] MEDS ORDERED: MORPHINE ORAL SOLN 10 MG/5 ML CUP PO PRN (14:35)
--- NOTE | 2017-12-13 15:52 | P.PN ---
Subjective Patient is admitted for colitis appears to be infectious colitis patient is given antibiotics diarrhea improved patient is still has abdominal pain requesting 1 more day of observation. Constitutional: Denied any fatigue denied any fever. Cardio vascular: denied any chest pain, palpitations Gastrointestinal as mentioned in HPI Pulmonary: Denied any shortness of breath cough Neurologic denied any new focal deficits Objective - Vital Signs Vital signs: Vital Signs Temp 97.6 F 12/13/17 08:00 Pulse 82 12/13/17 08:00 Resp 16 12/13/17 08:00 BP 117/56 12/13/17 08:00 Pulse Ox 97 12/13/17 08:00 Intake & Output 12/12/17 12/13/17 12/13/17 18:59 06:59 18:59 Intake Total 1125 240 Balance 1125 240 Weight 79.832 kg 79.832 kg Intake: IV 1125 Sodium Chloride 0.9% 1, 1125 000 ml @ 125 mls/hr IV . Q8H TRE Rx#:[id number] Oral 240 Other: Voiding Method Toilet Toilet # Voids 3 2 # Bowel Movements 1 - Exam PHYSICAL EXAMINATION: GENERAL: The patient is alert and oriented x3, not in any acute distress. Well developed, well nourished. HEENT: Pupils are round and equally reacting to light. EOMI. No scleral icterus. No conjunctival pallor. Normocephalic, atraumatic. No pharyngeal erythema. No thyromegaly. CARDIOVASCULAR: S1 and S2 present. No rubs, or gallops. There is a loud S2 and a systolic murmur in that area PULMONARY: Chest is clear to auscultation, no wheezing or crackles. ABDOMEN: Soft, minimal diffuse abdominal tenderness, nondistended, normoactive bowel sounds. No palpable organomegaly. MUSCULOSKELETAL: No joint swelling or deformity. EXTREMITIES: No cyanosis, clubbing, or pedal edema. NEUROLOGICAL: Gross neurological examination did not reveal any focal deficits. SKIN: No rashes. - Labs CBC & Chem 7: 12/13/17 06:32 12/13/17 06:32 Labs: Abnormal Lab Results - Last 24 Hours (Table) 12/12/17 12/12/17 12/12/17 Range/Units 16:00 16:00 16:00 WBC 25.5 H* (3.8-10.6) k/uL Plt Count 511 H (150-450) k/uL Neutrophils # 21.0 H (1.3-7.7) k/uL Monocytes # 1.3 H (0-1.0) k/uL Chloride (98-107) mmol/L BUN 5 L (7-17) mg/dL Creatinine (0.52-1.04) mg/dL Glucose 106 H (74-99) mg/dL AST 13 L (14-36) U/L Albumin (3.5-5.0) g/dL Urine Appearance Cloudy H (Clear) Urine Protein 1+ H (Negative) Urine Ketones 1+ H (Negative) Urine Blood Small H (Negative) Urine RBC 29 H (0-5) /hpf Ur Squamous Epith Cells 10 H (0-4) /hpf Urine Bacteria Moderate H (None) /hpf Urine Mucus Many H (None) /hpf 12/13/17 12/13/17 Range/Units 06:32 06:32 WBC 18.8 H (3.8-10.6) k/uL Plt Count 512 H (150-450) k/uL Neutrophils # 16.1 H (1.3-7.7) k/uL Monocytes # (0-1.0) k/uL Chloride 108 H (98-107) mmol/L BUN 3 L (7-17) mg/dL Creatinine 0.48 L (0.52-1.04) mg/dL Glucose 110 H (74-99) mg/dL AST 12 L (14-36) U/L Albumin 3.2 L (3.5-5.0) g/dL Urine Appearance (Clear) Urine Protein (Negative) Urine Ketones (Negative) Urine Blood (Negative) Urine RBC (0-5) /hpf Ur Squamous Epith Cells (0-4) /hpf Urine Bacteria (None) /hpf Urine Mucus (None) /hpf Microbiology - Last 24 Hours (Table) 12/12/17 17:12 Stool for WBCs - Final Stool 12/12/17 17:12 Stool Culture - Preliminary Stool 12/12/17 16:00 Urine Culture - Preliminary Urine,Voided Assessment and Plan Plan: -Abdominal pain, diarrhea: Was evaluated by a gastroenterology and believes infectious etiologies of most probable cause and patient is being continued on antibiotics if her abdominal pain improves patient will be discharged tomorrow -Tetralogy of follot: With subsequent surgery. , Leukocytosis: Secondary to colitis -Coronary artery disease
[2017-12-13 20:09] VITALS: RESP 16
[2017-12-14 00:11] VITALS: BP 119/60; PULSE 76; TEMP 97.8
[2017-12-14] MEDS: SODIUM CHLORIDE 0.9% 1,000 ML IV SCH ×2 (03:18→12:13)
[2017-12-14] MEDS: HYDROcodone/APAP 5-325MG 1 EACH TAB PO PRN (07:06)
[2017-12-14 11:07] LABS: Basophils # (A) 0.1 k/uL (0-0.2); Basophils % (A) 0 %; Eosinophils # (A) 0.1 k/uL (0-0.7); Eosinophils % (A) 0 %; HCT 33.8 % (34.0-46.0); HGB 10.6 gm/dL (11.4-16.0); Lymphocytes # (A) 2.3 k/uL (1.0-4.8); Lymphocytes % (A) 11 %; MCH 28.7 pg (25.0-35.0); MCHC 31.3 g/dL (31.0-37.0); MCV 91.9 fL (80.0-100.0); Mean Platelet Volume 6.8; Monocytes % (A) 5 %; Neutrophils # (A) 16.9 k/uL (1.3-7.7); Neutrophils % (A) 82 %; Platelet Count 501 k/uL (150-450); RBC 3.68 m/uL (3.80-5.40); RDW 14.7 % (11.5-15.5); WBC 20.6 k/uL (3.8-10.6)
--- NOTE | 2017-12-14 11:40 | P.DS ---
Providers Date of admission: 12/12/17 17:45 Attending physician: Violeta Rhoades Consults: 12/12/17 17:51 Consult Physician Routine Consulting Provider: Eun Isaac Consult Reason/Comments: Possible diffuse colitis Do you want consulting provider notified?: Yes Primary care physician: Brian Cadena [facility] Course: Patient was admitted secondary to colitis ulcerative colitis cannot be ruled out but the most probably patient has infectious colitis patient is being discharged on Ceftin and metronidazole for 10 more days. Patient Condition at Discharge: Serious Plan - Discharge Summary Discharge Rx Participant: No New Discharge Prescriptions: New Cefuroxime Axetil [Ceftin] 500 mg PO BID #20 tab metroNIDAZOLE [Flagyl] 500 mg PO TID #30 tab HYDROcodone/APAP 7.5-325MG [[place] 7.5-325] 1 tab PO Q4H PRN #20 tab PRN Reason: Pain Discharge Medication List Cefuroxime Axetil [Ceftin] 500 mg PO BID #20 tab 12/14/17 [Rx] HYDROcodone/APAP 7.5-325MG [[place] 7.5-325] 1 tab PO Q4H PRN #20 tab 12/14/17 [Rx ] metroNIDAZOLE [Flagyl] 500 mg PO TID #30 tab 12/14/17 [Rx] Follow up Appointment(s)/Referral(s): Brian Cadena DO [Primary Care Provider] - 3 Days Patient Instructions/Handouts: Cefuroxime (By mouth), Hydrocodone/ Acetaminophen (By mouth), Metronidazole (By mouth), Infectious Colitis (GEN) Discharge Disposition: HOME SELF-CARE
--- NOTE | 2017-12-14 11:52 | PN ---
PROGRESS NOTE The patient is a 27-year-old pleasant white female admitted to the hospital with acute onset of nausea, vomiting, abdominal pain and diarrhea. She was noted to have severe leukocytosis and was started on empiric antibiotics with Rocephin. She is doing much better. Her symptoms are better. Diarrhea has resolved. Stool studies so far were negative for C diff. Leukocytes were positive and cultures are still pending. PHYSICAL EXAMINATION: Appears comfortable. No apparent distress. Vital signs stable. Blood pressure 130/67, pulse rate 71, temperature 98.9. HEENT EXAMINATION: Unremarkable. Conjunctivae pink. Sclerae anicteric. Oral cavity, no lesions. NECK: No JVD or lymph node enlargement. CHEST: Clear to auscultation. HEART: Regular rate and rhythm. ABDOMEN: Soft. Bowel sounds are positive. No organomegaly. EXTREMITIES: No pedal edema. SKIN: No rashes. NEUROLOGIC: Alert and oriented x3. No focal deficits. LABS: From today are still pending. IMPRESSION: Acute onset of nausea, vomiting, diarrhea and abdominal pain with leukocytosis, possibly infectious colitis on antibiotics, doing extremely well. RECOMMENDATION: 1. Discharge home on p.o. antibiotics. 2. Advised to follow up in office in 10 days and we will consider an EGD and colonoscopy on outpatient basis. Thank you for this consultation. MMODL / IJN: [id number] /
[2017-12-14] MEDS: cefTRIAXone IN SWFI 1,000 MG/10 ML SYRINGE IVP SCH (12:12)
[2017-12-14] MEDS: metroNIDAZOLE-NS PMX 500 MG in SALINE 1 100ML.BAG IVPB SCH (12:12)
[2017-12-14] MEDS: PANTOPRAZOLE 40 MG/10 ML VIAL IV SCH (12:13)
== END 2017-12-14 12:26 | disposition home or self-care (01) ==
LOC: EC 14:10 → 3OBS 17:45 → 5MS5E 12-14 09:38
PROVIDERS: ADMIT Internal Medicine; ATTEND Internal Medicine
DX: K52.9 Noninfective gastroenteritis and colitis, unspecified (principal); I25.10 Atherosclerotic heart disease of native coronary artery without angina pectoris; F41.9 Anxiety disorder, unspecified; J30.2 Other seasonal allergic rhinitis; Z95.5 Presence of coronary angioplasty implant and graft; K59.00 Constipation, unspecified; Z91.041 Radiographic dye allergy status; Z88.5 Allergy status to narcotic agent; Z91.048 Other nonmedicinal substance allergy status; Z87.74 Personal history of (corrected) congenital malformations of heart and circulatory system; Z87.891 Personal history of nicotine dependence; Z80.7 Family history of other malignant neoplasms of lymphoid, hematopoietic and related tissues; Z82.49 Family history of ischemic heart disease and other diseases of the circulatory system; Z83.3 Family history of diabetes mellitus; Z84.89 Family history of other specified conditions
CPT/HCPCS: 99285 ×2; 96365 ×2; 96375 ×4; 96361 ×4; 96376; 96366 ×2; 36415; 80053 ×2; 82150; 83605; 83690; 85025 ×3; 85610; 81001; 87040; 87324; 87086; 87045; 89055; 87046; 74019; G0378 ×3; J2405; J0696 ×2; J7512; C9113 ×2

== ENCOUNTER 2018-04-09 15:41 | Emergency (ER) | payer MEDICARE, OTHER ==
[2018-04-09 15:54] VITALS: RESP 18
[2018-04-09] MEDS ORDERED: ONDANSETRON 4 MG/2 ML VIAL IVP STA (16:20)
[2018-04-09] MEDS ORDERED: SODIUM CHLORIDE 0.9% 500 ML IV STA (16:20)
[2018-04-09] MEDS ORDERED: PANTOPRAZOLE 40 MG/10 ML VIAL IVP STA (16:20)
[2018-04-09] MEDS ORDERED: SODIUM CHLORIDE 0.9% 1,000 ML IV STA (16:20)
[2018-04-09 17:17] LABS: Appearance,Urine Cloudy (Clear); Bacteria,Urine Rare /hpf; Basophils # (A) 0.1 k/uL (0-0.2); Basophils % (A) 0 %; Bilirubin,Urine Negative (Negative); Blood,Urine Small (Negative); Color,Urine Yellow; Eosinophils # (A) 0.1 k/uL (0-0.7); Eosinophils % (A) 1 %; Glucose,Urine (UA) Negative (Negative); HCT 43.3 % (34.0-46.0); HGB 13.7 gm/dL (11.4-16.0); Ketones,Urine 2+ (Negative); Leukocyte Esterase,Urine Negative (Negative); Lymphocytes # (A) 1.9 k/uL (1.0-4.8); Lymphocytes % (A) 9 %; MCH 27.8 pg (25.0-35.0); MCHC 31.5 g/dL (31.0-37.0); MCV 88.1 fL (80.0-100.0); Mean Platelet Volume 6.4; Monocytes # (A) 1.3 k/uL (0-1.0); Monocytes % (A) 6 %; Mucus,Urine Many /hpf; Neutrophils # (A) 18.3 k/uL (1.3-7.7); Neutrophils % (A) 83 %; Nitrite,Urine Negative (Negative); PH, Urine 6.5 (5.0-8.0); Platelet Count 494 k/uL (150-450); Protein,Urine 1+ (Negative); RBC 4.92 m/uL (3.80-5.40); RBC,Urine 5 /hpf (0-5); RDW 14.9 % (11.5-15.5); Specific Gravity,Urine 1.022 (1.001-1.035); Squamous Epithelial Cell,Urine 6 /hpf (0-4); Urobilinogen,Urine <2.0 mg/dL (<2.0); WBC 22.1 k/uL (3.8-10.6); WBC,Urine 5 /hpf (0-5)
[2018-04-09 17:40] LABS: ALT 25 U/L (9-52); AST 16 U/L (14-36); Albumin 3.7 g/dL (3.5-5.0); Alkaline Phosphatase 108 U/L (38-126); Amylase 35 U/L (30-110); Anion Gap 10 mmol/L; Blood Urea Nitrogen 8 mg/dL (7-17); Calcium 9.2 mg/dL (8.4-10.2); Carbon Dioxide 27 mmol/L (22-30); Chloride 100 mmol/L (98-107); Glucose 98 mg/dL (74-99); Lipase 29 U/L (23-300); Potassium 3.9 mmol/L (3.5-5.1); Sodium 137 mmol/L (137-145); Total Bilirubin 0.4 mg/dL (0.2-1.3); Total Protein 7.3 g/dL (6.3-8.2)
--- NOTE | 2018-04-09 17:41 | XR ---
EXAMINATION TYPE: XR KUB DATE OF EXAM: 04/09/2018 COMPARISON: 07/16/2017 HISTORY: Abdominal pain TECHNIQUE: 2 views FINDINGS: There is no sign of intestinal obstruction or pneumoperitoneum. Fecal pattern is normal. [place] ng bases are clear. There are no pathologic calcifications over the kidneys. IMPRESSION: Nonacute abdomen. No change.
--- NOTE | 2018-04-09 18:18 | ED ---
Abdominal Pain HPI - General Chief Complaint: Abdominal Pain Stated Complaint: ABDOMINAL PAIN Time Seen by Provider: 04/09/18 16:11 Source: patient Mode of arrival: ambulatory Limitations: no limitations - History of Present Illness Initial Comments: 27 years O female presents with the nausea and some vomiting and epigastric pain she is an aspirin for her heart disease she had heart surgery and she might drink quite heavily couple days ago and that aggravated She denies any fever no chills she is nauseous and some diarrhea as well. Review of system is unremarkable otherwise - Related Data Previous Rx's Medication Instructions Recorded Cefuroxime Axetil [Ceftin] 500 mg PO BID #20 tab 12/14/17 HYDROcodone/APAP 7.5-325MG [[place] 1 tab PO Q4H PRN #20 tab 12/14/17 7.5-325] metroNIDAZOLE [Flagyl] 500 mg PO TID #30 tab 12/14/17 Metoclopramide [Reglan] 10 mg PO TID #12 tab 04/09/18 Omeprazole 40 mg PO DAILY #30 capsule. 04/09/18 Allergies Allergy/AdvReac Type Severity Reaction Status Date / Time hydromorphone [From Dilaudid] Allergy Dyspnea Verified 04/09/18 15:54 Iodinated Contrast- Oral and AdvReac Unknown Verified 04/09/18 15:54 IV Dye iodine AdvReac Unknown Verified 04/09/18 15:54 Review of Systems ROS Statement: Those systems with pertinent positive or pertinent negative responses have been documented in the HPI. ROS Other: All systems not noted in ROS Statement are negative. Past Medical History Past Medical History: Coronary Artery Disease (CAD), Chest Pain / Angina Additional Past Medical History / Comment(s): tetrology of fallot as infant, cardiac stent in jul 26, 2011 for reasons of having chest pain, past kidney failure 2016-resoleved. seasonal allergies.colitis History of Any Multi-Drug Resistant Organisms: None Reported Past Surgical History: Heart Catheterization With Stent, Orthopedic Surgery Additional Past Surgical History / Comment(s): heart surgery repair of tetralogy of fallot--infancy (9 days). heart surgery with valve repair at 18 mths. cardiac cath with stent at 2010. left elbow surgery--at 6 yrs of age. oral surgery--at 5 yrs, lt leg debridment 2014(pinned up against a car) Past Anesthesia/Blood Transfusion Reactions: No Reported Reaction, Motion Sickness Date of Last Stent Placement:: jul 26, 2011 Past Psychological History: No Psychological Hx Reported Smoking Status: Former smoker Past Alcohol Use History: Occasional Past Drug Use History: None Reported - Past Family History Father Family Medical History: No Reported History Additional Family Medical History / Comment(s): back pain Mother Family Medical History: Cancer, Diabetes Mellitus, Hypertension Additional Family Medical History / Comment(s): MRSA, rt below knee amputation General Exam - General Exam Comments Initial Comments: General: The patient is awake and alert, in no distress, and does not appear acutely ill. Skin: Skin is warm and dry and no rashes or lesions are noted. Eye: Pupils are equal, round and reactive to light, extra-ocular movements are intact; there is normal conjunctiva bilaterally. Ears, nose, mouth and throat: There are moist mucous membranes and no oral lesions. Neck: The neck is supple, there is no tenderness or JVD. Cardiovascular: There is a regular rate and rhythm. No murmur, rub or gallop is appreciated. Respiratory: To auscultation bilateral, no wheezing no rhonchi no distress respiratory torres noticed Gastrointestinal: Tender in epigastric area and the right upper quadrant area Back: There is no tenderness to palpation in the midline. There is no obvious deformity. Musculoskeletal: Normal ROM, no tenderness, There is no pedal edema. There is no calf tenderness or swelling. No cords were appreciated. Neurological: CN II-XII intact, Cranial nerves III through XII are intact. There are no obvious motor or sensory deficits. Coordination appears grossly intact. Speech is normal. Psychiatric: Cooperative, appropriate mood & affect, normal judgment. Limitations: no limitations Course Vital Signs 04/09/18 15:51 Temperature 98.1 F Pulse Rate 89 Respiratory 18 Rate Blood Pressure 115/87 O2 Sat by Pulse 99 Oximetry Reviewed her labs noticed white count has been elevated to 2 days at 22.1 it has been elevated for quite some time white count was 25 and then it was 19 that he was 21 that it was 22 patient doesn't know why the white count is elevated and she hasn't followed up with any register of wills about it and he doesn' t seem infectious she is not running any fever and she doesn't look toxic sec as a septic person but. Referred to Dr. jewell she agreed with the she be gone home on Reglan and 10 mg by mouth when necessary and then omeprazole 20 mg by mouth daily for 30 days Medical Decision Making - Lab Data Result diagrams: 04/09/18 16:50 04/09/18 16:50 Lab Results 04/09/18 04/09/18 04/09/18 Range/Units 16:50 16:50 16:50 WBC 22.1 H (3.8-10.6) k/uL RBC 4.92 (3.80-5.40) m/uL Hgb 13.7 (11.4-16.0) gm/dL Hct 43.3 (34.0-46.0) % MCV 88.1 (80.0-100.0) fL MCH 27.8 (25.0-35.0) pg MCHC 31.5 (31.0-37.0) g/dL RDW 14.9 (11.5-15.5) % Plt Count 494 H (150-450) k/uL Neutrophils % 83 % Lymphocytes % 9 % Monocytes % 6 % Eosinophils % 1 % Basophils % 0 % Neutrophils # 18.3 H (1.3-7.7) k/uL Lymphocytes # 1.9 (1.0-4.8) k/uL Monocytes # 1.3 H (0-1.0) k/uL Eosinophils # 0.1 (0-0.7) k/uL Basophils # 0.1 (0-0.2) k/uL Sodium 137 (137-145) mmol/L Potassium 3.9 (3.5-5.1) mmol/L Chloride 100 (98-107) mmol/L Carbon Dioxide 27 (22-30) mmol/L Anion Gap 10 mmol/L BUN 8 (7-17) mg/dL Creatinine 0.68 (0.52-1.04) mg/dL Est GFR (CKD-EPI)AfAm >90 (>60 ml/min/1.73 sqM) Est GFR (CKD-EPI)NonAf >90 (>60 ml/min/1.73 sqM) Glucose 98 (74-99) mg/dL Calcium 9.2 (8.4-10.2) mg/dL Total Bilirubin 0.4 (0.2-1.3) mg/dL AST 16 (14-36) U/L ALT 25 (9-52) U/L Alkaline Phosphatase 108 (38-126) U/L Total Protein 7.3 (6.3-8.2) g/dL Albumin 3.7 (3.5-5.0) g/dL Amylase 35 (30-110) U/L Lipase 29 (23-300) U/L Urine Color Yellow Urine Appearance Cloudy H (Clear) Urine pH 6.5 (5.0-8.0) Ur Specific [place] 1.022 (1.001-1.035) Urine Protein 1+ H (Negative) Urine Glucose (UA) Negative (Negative) Urine Ketones 2+ H (Negative) Urine Blood Small H (Negative) Urine Nitrite Negative (Negative) Urine Bilirubin Negative (Negative) Urine Urobilinogen <2.0 (<2.0) mg/dL Ur Leukocyte Esterase Negative (Negative) Urine RBC 5 (0-5) /hpf Urine WBC 5 (0-5) /hpf Ur Squamous Epith Cells 6 H (0-4) /hpf Urine Bacteria Rare H (None) /hpf Urine Mucus Many H (None) /hpf Urine HCG, Qual (Not Detectd) 04/09/18 Range/Units 16:50 WBC (3.8-10.6) k/uL RBC (3.80-5.40) m/uL Hgb (11.4-16.0) gm/dL Hct (34.0-46.0) % MCV (80.0-100.0) fL MCH (25.0-35.0) pg MCHC (31.0-37.0) g/dL RDW (11.5-15.5) % Plt Count (150-450) k/uL Neutrophils % % Lymphocytes % % Monocytes % % Eosinophils % % Basophils % % Neutrophils # (1.3-7.7) k/uL Lymphocytes # (1.0-4.8) k/uL Monocytes # (0-1.0) k/uL Eosinophils # (0-0.7) k/uL Basophils # (0-0.2) k/uL Sodium (137-145) mmol/L Potassium (3.5-5.1) mmol/L Chloride (98-107) mmol/L Carbon Dioxide (22-30) mmol/L Anion Gap mmol/L BUN (7-17) mg/dL Creatinine (0.52-1.04) mg/dL Est GFR (CKD-EPI)AfAm (>60 ml/min/1.73 sqM) Est GFR (CKD-EPI)NonAf (>60 ml/min/1.73 sqM) Glucose (74-99) mg/dL Calcium (8.4-10.2) mg/dL Total Bilirubin (0.2-1.3) mg/dL AST (14-36) U/L ALT (9-52) U/L Alkaline Phosphatase (38-126) U/L Total Protein (6.3-8.2) g/dL Albumin (3.5-5.0) g/dL Amylase (30-110) U/L Lipase (23-300) U/L Urine Color Urine Appearance (Clear) Urine pH (5.0-8.0) Ur Specific [place] (1.001-1.035) Urine Protein (Negative) Urine Glucose (UA) (Negative) Urine Ketones (Negative) Urine Blood (Negative) Urine Nitrite (Negative) Urine Bilirubin (Negative) Urine Urobilinogen (<2.0) mg/dL Ur Leukocyte Esterase (Negative) Urine RBC (0-5) /hpf Urine WBC (0-5) /hpf Ur Squamous Epith Cells (0-4) /hpf Urine Bacteria (None) /hpf Urine Mucus (None) /hpf Urine HCG, Qual Not Detected (Not Detectd) Disposition Clinical Impression: Gastritis, Duodenitis, Leukocytosis Disposition: HOME SELF-CARE Condition: Good Instructions: Gastritis (ED) Prescriptions: Metoclopramide [Reglan] 10 mg PO TID #12 tab Omeprazole 40 mg PO DAILY #30 capsule.dr Is patient prescribed a controlled substance at d/c from ED?: No Referrals: Brian Cadena DO [Primary Care Provider] - 1-2 days
[2018-04-09 18:28] VITALS: BP 117/76; PULSE 79; TEMP 98.9
== END 2018-04-09 18:27 | disposition home or self-care (01) ==
LOC: EC 15:41
DX: K29.70 Gastritis, unspecified, without bleeding (principal); K29.80 Duodenitis without bleeding; D72.829 Elevated white blood cell count, unspecified; R19.7 Diarrhea, unspecified; Z87.891 Personal history of nicotine dependence; Z88.5 Allergy status to narcotic agent; Z91.041 Radiographic dye allergy status; Z91.048 Other nonmedicinal substance allergy status
CPT/HCPCS: 36415; 80053; 82150; 83690; 85025; 81001; 81025; 74018; 99284; 96374; 96375; 96361 ×2; J2405; C9113

== ENCOUNTER 2019-01-01 15:20 | Observation (INO) | payer MEDICARE, OTHER ==
--- NOTE | 2019-01-01 15:45 | ED ---
General Adult HPI - General Chief complaint: Abdominal Pain Stated complaint: Abd pain Time Seen by Provider: 01/01/19 15:35 Source: patient Mode of arrival: ambulatory Limitations: no limitations - History of Present Illness Initial comments: Dictation was produced using [employer] dictation software. please excuse any grammatical, word or spelling errors. 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 History of Present Illness: Patient states that her symptoms have been ongoing for 1 week. She reports that her main complaint is abdominal pain. She states that the pain is periumbilical and suprapubic. States that she feels like it's worse when she presses on her belly and when she has a bowel movement. He fever, chills or night sweats. Denies any nausea vomiting or diarrhea. Patient also complains of a secondary complaint of chest pain. She said the pain is sharp and substernal without any radiation to the shoulders or jaw. Patient was concerned given that she has a cardiac history known to come in to be evaluated. She reports that she is more concerned about her abdominal pain that her chest pain. Patient denies any sexual activity. The ROS documented in this emergency department record has been reviewed and confirmed by me. Those systems with pertinent positive or negative responses have been documented in the HPI. All other systems are other negative and/or noncontributory. PHYSICAL EXAM: General Impression: Alert and oriented x3, not in acute distress HEENT: Normocephalic atraumatic, extra-ocular movements intact, pupils equal and reactive to light bilaterally, mucous membranes moist. Cardiovascular: Heart regular rate and rhythm, S1&S2 audible, no murmurs, rubs or gallops Chest: Lungs clear to auscultation bilaterally, no rhonchi, no wheeze, no rales Abdomen: Bowel sounds present, abdomen soft, tenderness to palpation over the suprapubic and periumbilical area Musculoskeletal: Pulses present and equal in all extremities, no peripheral edema Motor: no focal deficits noted Neurological: CN II-XII grossly intact, no focal motor or sensory deficits noted Skin: Intact with no visualized rashes Psych: Normal affect and mood ED course: 28-year-old female presents with chief complaint of chest pain and abdominal pain. Vital signs upon arrival are within acceptable limits. Physical exam is positive for abdominal symptoms. Especially about the periumbilical area. Laboratory evaluation obtained. Patient is leukocytosis of 21.9. Patient is a history of leukocytosis. According to chart review and after getting more history from patient she is not aware of any chronic conditions that would cause her white blood cell counts to be elevated. Metabolic panel is unremarkable. Urinalysis is positive for urinary tract infection. Chart review was performed and patient was value by GI past for similar complaint. She required IV antibiotics as recommended by GI and infectious disease. Patient with the benefit from inpatient admission with GI evaluation. Patient given IV antibiotics. Urine culture pending. Discussed patient case with Dr. Rhoades who is willing to accept admission. EKG interpretation: Ventricular rate 79, normal sinus rhythm, RI interval 152, QRS 16, QTC 495. No RI prolongation, no QTC prolongation, no ST or T-wave changes noted. EKG compared to 07/24/2017 showing no changes. Overall, this EKG is unremarkable - Related Data Home Medications Medication Instructions Recorded Confirmed Aspirin [Adult Low Dose Aspirin EC] 81 mg PO DAILY PRN 01/01/19 01/01/19 [id number] [id number] 1 tab PO Q4HR PRN 01/01/19 01/01/19 [Excedrin] Allergies Allergy/AdvReac Type Severity Reaction Status Date / Time hydromorphone [From Dilaudid] Allergy Dyspnea Verified 01/01/19 16:26 Iodinated Contrast- Oral and AdvReac Unknown Verified 01/01/19 16:26 IV Dye iodine AdvReac Unknown Verified 01/01/19 16:26 Review of Systems ROS Statement: Those systems with pertinent positive or pertinent negative responses have been documented in the HPI. ROS Other: All systems not noted in ROS Statement are negative. Past Medical History Past Medical History: Coronary Artery Disease (CAD), Chest Pain / Angina Additional Past Medical History / Comment(s): tetrology of fallot as , cardiac stent in jul 26, 2011 for reasons of having chest pain, past kidney failure 2016-resoleved. seasonal allergies.colitis History of Any Multi-Drug Resistant Organisms: None Reported Past Surgical History: Heart Catheterization With Stent, Orthopedic Surgery Additional Past Surgical History / Comment(s): heart surgery repair of tetralogy of fallot--infancy (9 days). heart surgery with valve repair at 18 mths. cardiac cath with stent at 2010. left elbow surgery--at 6 yrs of age. oral s urgery--at 5 yrs, lt leg debridment 2014(pinned up against a car) Past Anesthesia/Blood Transfusion Reactions: No Reported Reaction, Motion Sickness Date of Last Stent Placement:: jul 26, 2011 Past Psychological History: No Psychological Hx Reported Smoking Status: Current every day smoker Past Alcohol Use History: Occasional Past Drug Use History: None Reported - Past Family History Father Family Medical History: No Reported History Additional Family Medical History / Comment(s): back pain Mother Family Medical History: Cancer, Diabetes Mellitus, Hypertension Additional Family Medical History / Comment(s): MRSA, rt below knee amputation General Exam Limitations: no limitations Course Vital Signs 01/01/19 15:30 Temperature 98.4 F Pulse Rate 94 Respiratory 20 Rate Blood Pressure 122/84 O2 Sat by Pulse 98 Oximetry Medical Decision Making - Lab Data Result diagrams: 01/01/19 15:53 01/01/19 15:53 Lab Results 01/01/19 01/01/19 01/01/19 Range/Units 15:53 15:53 15:53 WBC 21.9 H (3.8-10.6) k/uL RBC 4.65 (3.80-5.40) m/uL Hgb 14.2 (11.4-16.0) gm/dL Hct 43.2 (34.0-46.0) % MCV 93.0 (80.0-100.0) fL MCH 30.5 (25.0-35.0) pg MCHC 32.8 (31.0-37.0) g/dL RDW 14.2 (11.5-15.5) % Plt Count 364 (150-450) k/uL Neutrophils % 83 % Lymphocytes % 10 % Monocytes % 5 % Eosinophils % 1 % Basophils % 0 % Neutrophils # 18.0 H (1.3-7.7) k/uL Lymphocytes # 2.1 (1.0-4.8) k/uL Monocytes # 1.0 (0-1.0) k/uL Eosinophils # 0.3 (0-0.7) k/uL Basophils # 0.1 (0-0.2) k/uL Sodium 140 (137-145) mmol/L Potassium 3.5 (3.5-5.1) mmol/L Chloride 105 (98-107) mmol/L Carbon Dioxide 23 (22-30) mmol/L Anion Gap 12 mmol/L BUN 7 (7-17) mg/dL Creatinine 0.63 (0.52-1.04) mg/dL Est GFR (CKD-EPI)AfAm >90 (>60 ml/min/1.73 sqM) Est GFR (CKD-EPI)NonAf >90 (>60 ml/min/1.73 sqM) Glucose 96 (74-99) mg/dL Calcium 9.6 (8.4-10.2) mg/dL Magnesium 2.2 (1.6-2.3) mg/dL Total Bilirubin 0.5 (0.2-1.3) mg/dL Conjugated Bilirubin 0.0 (0.0-0.3) mg/dL Unconjugated Bilirubin 0.4 (0.0-1.1) mg/dL Delta Bilirubin 0.1 (0.0-0.2) mg/dL AST 16 (14-36) U/L ALT 26 (9-52) U/L Alkaline Phosphatase 100 (38-126) U/L Troponin I <0.012 (0.000-0.034) ng/mL Total Protein 7.9 (6.3-8.2) g/dL Albumin 4.4 (3.5-5.0) g/dL Lipase 48 (23-300) U/L Urine Color Urine Appearance (Clear) Urine pH (5.0-8.0) Ur Specific [place] (1.001-1.035) Urine Protein (Negative) Urine Glucose (UA) (Negative) Urine Ketones (Negative) Urine Blood (Negative) Urine Nitrite (Negative) Urine Bilirubin (Negative) Urine Urobilinogen (<2.0) mg/dL Ur Leukocyte Esterase (Negative) Urine RBC (0-5) /hpf Urine WBC (0-5) /hpf Ur Squamous Epith Cells (0-4) /hpf Amorphous Sediment (None) /hpf Urine Bacteria (None) /hpf Urine Mucus (None) /hpf Urine HCG, Qual (Not Detectd) 01/01/19 01/01/19 Range/Units 16:05 16:05 WBC (3.8-10.6) k/uL RBC (3.80-5.40) m/uL Hgb (11.4-16.0) gm/dL Hct (34.0-46.0) % MCV (80.0-100.0) fL MCH (25.0-35.0) pg MCHC (31.0-37.0) g/dL RDW (11.5-15.5) % Plt Count (150-450) k/uL Neutrophils % % Lymphocytes % % Monocytes % % Eosinophils % % Basophils % % Neutrophils # (1.3-7.7) k/uL Lymphocytes # (1.0-4.8) k/uL Monocytes # (0-1.0) k/uL Eosinophils # (0-0.7) k/uL Basophils # (0-0.2) k/uL Sodium (137-145) mmol/L Potassium (3.5-5.1) mmol/L Chloride (98-107) mmol/L Carbon Dioxide (22-30) mmol/L Anion Gap mmol/L BUN (7-17) mg/dL Creatinine (0.52-1.04) mg/dL Est GFR (CKD-EPI)AfAm (>60 ml/min/1.73 sqM) Est GFR (CKD-EPI)NonAf (>60 ml/min/1.73 sqM) Glucose (74-99) mg/dL Calcium (8.4-10.2) mg/dL Magnesium (1.6-2.3) mg/dL Total Bilirubin (0.2-1.3) mg/dL Conjugated Bilirubin (0.0-0.3) mg/dL Unconjugated Bilirubin (0.0-1.1) mg/dL Delta Bilirubin (0.0-0.2) mg/dL AST (14-36) U/L ALT (9-52) U/L Alkaline Phosphatase (38-126) U/L Troponin I (0.000-0.034) ng/mL Total Protein (6.3-8.2) g/dL Albumin (3.5-5.0) g/dL Lipase (23-300) U/L Urine Color Yellow Urine Appearance Cloudy H (Clear) Urine pH 6.0 (5.0-8.0) Ur Specific [place] 1.036 H (1.001-1.035) Urine Protein 1+ H (Negative) Urine Glucose (UA) Negative (Negative) Urine Ketones 1+ H (Negative) Urine Blood Small H (Negative) Urine Nitrite Negative (Negative) Urine Bilirubin Negative (Negative) Urine Urobilinogen 2.0 (<2.0) mg/dL Ur Leukocyte Esterase Trace H (Negative) Urine RBC 15 H (0-5) /hpf Urine WBC 20 H (0-5) /hpf Ur Squamous Epith Cells 13 H (0-4) /hpf Amorphous Sediment Occasional H (None) /hpf Urine Bacteria Many H (None) /hpf Urine Mucus Many H (None) /hpf Urine HCG, Qual Not Detected (Not Detectd) Disposition Clinical Impression: Abdominal pain Disposition: ADMITTED IP TO THIS [facility] Condition: Fair Referrals: None,Stated [Primary Care Provider] - 1-2 days Decision Time: 16:54
[2019-01-01 16:05] LABS: Basophils # (A) 0.1 k/uL (0-0.2); Basophils % (A) 0 %; Eosinophils # (A) 0.3 k/uL (0-0.7); Eosinophils % (A) 1 %; HCT 43.2 % (34.0-46.0); HGB 14.2 gm/dL (11.4-16.0); Lymphocytes # (A) 2.1 k/uL (1.0-4.8); Lymphocytes % (A) 10 %; MCH 30.5 pg (25.0-35.0); MCHC 32.8 g/dL (31.0-37.0); Mean Platelet Volume 6.5; Monocytes % (A) 5 %; Neutrophils % (A) 83 %; Platelet Count 364 k/uL (150-450); RBC 4.65 m/uL (3.80-5.40); RDW 14.2 % (11.5-15.5); WBC 21.9 k/uL (3.8-10.6)
[2019-01-01 16:13] LABS: ALT 26 U/L (9-52); AST 16 U/L (14-36); Albumin 4.4 g/dL (3.5-5.0); Alkaline Phosphatase 100 U/L (38-126); Anion Gap 12 mmol/L; Bilirubin, Delta 0.1 mg/dL (0.0-0.2); Bilirubin,Unconjugated 0.4 mg/dL (0.0-1.1); Blood Urea Nitrogen 7 mg/dL (7-17); Calcium 9.6 mg/dL (8.4-10.2); Carbon Dioxide 23 mmol/L (22-30); Chloride 105 mmol/L (98-107); Glucose 96 mg/dL (74-99); Lipase 48 U/L (23-300); Magnesium 2.2 mg/dL (1.6-2.3); Potassium 3.5 mmol/L (3.5-5.1); Sodium 140 mmol/L (137-145); Total Bilirubin 0.5 mg/dL (0.2-1.3); Total Protein 7.9 g/dL (6.3-8.2)
--- NOTE | 2019-01-01 16:22 | XR ---
EXAMINATION TYPE: XR chest 2V DATE OF EXAM: 01/01/2019 COMPARISON: NONE HISTORY: Chest pain TECHNIQUE: Frontal and lateral views of the chest are obtained. FINDINGS: There is no focal air space opacity. No evidence for pneumothorax. No pleural effusion. The cardiac silhouette size is within normal limits. The osseous structures are grossly intact. Stent device noted. IMPRESSION: 1. No acute cardiopulmonary process.
--- NOTE | 2019-01-01 16:23 | XR ---
EXAMINATION TYPE: XR abdomen 1V DATE OF EXAM: 01/01/2019 COMPARISON: April 09, 2018 HISTORY: Pain TECHNIQUE: Single supine KUB image of the abdomen is obtained FINDINGS: Small bowel demonstrates no evidence for dilatation or air fluid levels. Gas and fecal material is seen in non-distended colon. No convincing evidence for pneumoperitoneum. No unusual calcifications. The lung bases are clear. The osseous structures are intact. IMPRESSION: 1. Overall nonobstructive bowel gas pattern.
[2019-01-01 16:24] LABS: Amorphous Sediment,Urine Occasional /hpf; Appearance,Urine Cloudy (Clear); Bacteria,Urine Many /hpf; Bilirubin,Urine Negative (Negative); Blood,Urine Small (Negative); Color,Urine Yellow; Glucose,Urine (UA) Negative (Negative); Ketones,Urine 1+ (Negative); Leukocyte Esterase,Urine Trace (Negative); Mucus,Urine Many /hpf; Nitrite,Urine Negative (Negative); Protein,Urine 1+ (Negative); RBC,Urine 15 /hpf (0-5); Specific Gravity,Urine 1.036 (1.001-1.035); Squamous Epithelial Cell,Urine 13 /hpf (0-4)
[2019-01-01] MEDS ORDERED: metroNIDAZOLE-NS PMX 500 MG in SALINE 1 100ML.BAG IVPB STA (16:37)
[2019-01-01] MEDS ORDERED: NALOXONE 0.4 MG/ML 1 ML VIAL IV PRN (16:55)
[2019-01-01 18:28] VITALS: BMI 22.1
[2019-01-01] MEDS: ONDANSETRON 4 MG/2 ML VIAL IVP PRN (21:37)
[2019-01-02] MEDS: ONDANSETRON 4 MG/2 ML VIAL IVP PRN ×2 (08:06→17:38)
[2019-01-02] MEDS: PANTOPRAZOLE 40 MG/10 ML VIAL IV SCH (08:06)
[2019-01-02 10:47] LABS: Basophils % (A) 0 %; Eosinophils # (A) 0.1 k/uL (0-0.7); Eosinophils % (A) 1 %; HCT 44.1 % (34.0-46.0); HGB 14.3 gm/dL (11.4-16.0); Lymphocytes # (A) 1.5 k/uL (1.0-4.8); Lymphocytes % (A) 8 %; MCH 30.5 pg (25.0-35.0); MCHC 32.5 g/dL (31.0-37.0); MCV 93.9 fL (80.0-100.0); Mean Platelet Volume 6.4; Monocytes # (A) 1.2 k/uL (0-1.0); Monocytes % (A) 6 %; Neutrophils % (A) 84 %; Platelet Count 380 k/uL (150-450); RDW 14.1 % (11.5-15.5)
[2019-01-02 11:00] LABS: Anion Gap 11 mmol/L; Blood Urea Nitrogen 6 mg/dL (7-17); Calcium 9.8 mg/dL (8.4-10.2); Carbon Dioxide 25 mmol/L (22-30); Chloride 104 mmol/L (98-107); Glucose 93 mg/dL (74-99); Sodium 140 mmol/L (137-145)
--- NOTE | 2019-01-02 14:29 | P.HPIM ---
History of Present Illness This is a pleasant 28 years old female with past medical history of coronary artery disease, status post cardiac stent in 07/26/2011, tetralogy of followed as an infant. Presents with abdominal pain for 1 week duration on and off which got worse for the last 2 days, the pain is periumbilical mainly on the left side, nonradiating, nonspecific about 7-8/10 in severity, and down today to 2/10. She has normal bowel movement with no nausea vomiting currently although she vomited once yesterday with no blood. She is also complaining of from bladder irritations and increased frequency with small amounts of urine. No suprapubic tenderness. No chest pain or dyspnea. No dizziness. Is tolerating diet well Vitals stable, she has leukocytosis of 21.9 and 19 K. Rest of CBC, BMP and liver enzyme Labs were unremarkable. Urine analysis is suspicious for infection. Urine culture is pending. EKG showing normal sinus rhythm at 79 with right bundle branch block and QTC of 495. Chest x-ray showing no acute cardiopulmonary process and abdominal x-ray showing nonobstructive bowel gas pattern as per radiologist. Patient was started on ceftazidime and Flagyl. And Protonix Review of Systems CONSTITUTIONAL: No fever, no malaise, no fatigue. HEENT: No recent visual problems or hearing problems. Denied any sore throat. CARDIOVASCULAR: No orthopnea, PND, no palpitations, no syncope. PULMONARY: No shortness of breath, no cough, no hemoptysis. GASTROINTESTINAL: No diarrhea, no nausea, no vomiting, no abdominal pain. Normoactive bowel sounds. NEUROLOGICAL: No headaches, no weakness, no numbness. HEMATOLOGICAL: Denies any bleeding or petechiae. GENITOURINARY: Denies any burning micturition, frequency, or urgency. MUSCULOSKELETAL/RHEUMATOLOGICAL: Denies any joint pain, swelling, or any muscle pain. ENDOCRINE: Denies any polyuria or polydipsia. Past Medical History Past Medical History: Coronary Artery Disease (CAD), Chest Pain / Angina Additional Past Medical History / Comment(s): tetrology of fallot as , cardiac stent in jul 26, 2011 for reasons of having chest pain, past kidney failure 2016-resolved. seasonal allergies.colitis History of Any Multi-Drug Resistant Organisms: None Reported Past Surgical History: Heart Catheterization With Stent, Orthopedic Surgery Additional Past Surgical History / Comment(s): heart surgery repair of tetralogy of fallot--infancy (9 days). heart surgery with valve repair at 18 mths. ca rdiac cath with stent at 2010. left elbow surgery--at 6 yrs of age. oral surgery--at 5 yrs, lt leg debridment 2014(pinned up against a car) Past Anesthesia/Blood Transfusion Reactions: Motion Sickness Date of Last Stent Placement:: jul 26, 2011 Past Psychological History: No Psychological Hx Reported Additional Psychological History / Comment(s): lives with dad. no medical euqipment, no home care services Smoking Status: Current every day smoker Past Alcohol Use History: Occasional Additional Past Alcohol Use History / Comment(s): started smoking at age 19 smoked 1ppd- quit jul 2017 and restarted Past Drug Use History: None Reported - Past Family History Father Family Medical History: No Reported History Additional Family Medical History / Comment(s): back pain Mother Family Medical History: Cancer, Diabetes Mellitus, Hypertension Additional Family Medical History / Comment(s): MRSA, rt below knee amputation Medications and Allergies Home Medications Medication Instructions Recorded Confirmed Type Aspirin [Adult Low Dose Aspirin EC] 81 mg PO DAILY PRN 01/01/19 01/01/19 History [id number]-[id number]-Riok [id number] 1 tab PO Q4HR PRN 01/01/19 01/01/19 History [Excedrin] Allergies Allergy/AdvReac Type Severity Reaction Status Date / Time hydromorphone [From Dilaudid] Allergy Dyspnea Verified 01/01/19 16:26 Iodinated Contrast- Oral and AdvReac Unknown Verified 01/01/19 16:26 IV Dye iodine AdvReac Unknown Verified 01/01/19 16:26 Physical Exam Vitals: Vital Signs Temp Pulse Pulse Resp BP BP Pulse Ox 01/02/19 04:54 98.8 F 86 17 105/70 97 01/01/19 21:06 98.2 F 77 18 121/80 96 01/01/19 18:12 98.8 F 86 16 125/73 97 01/01/19 15:30 98.4 F 94 20 122/84 98 Intake and Output 01/01/19 01/02/19 01/02/19 22:59 06:59 14:59 Other: # Voids 1 1 2 Weight 68.039 kg GENERAL: The patient is alert and oriented x3, not in any acute distress. Well developed, well nourished. HEENT: Pupils are round and equally reacting to light. EOMI. No scleral icterus. No conjunctival pallor. Normocephalic, atraumatic. No pharyngeal erythema. No thyromegaly. CARDIOVASCULAR: S1 and S2 present. No murmurs, rubs, or gallops. PULMONARY: Chest is clear to auscultation, no wheezing or crackles. -ABDOMEN: Soft, mild periumbilical tenderness, and to the left. No suprapubic tenderness, no rebound tenderness or guarding. nondistended, normoactive bowel sounds. No palpable organomegaly. MUSCULOSKELETAL: No joint swelling or deformity. EXTREMITIES: No cyanosis, clubbing, or pedal edema. NEUROLOGICAL: Gross neurological examination did not reveal any focal deficits. SKIN: No rashes. Results CBC & Chem 7: 01/02/19 09:51 01/02/19 09:51 Labs: Abnormal Lab Results - Last 24 Hours (Table) 01/01/19 01/01/19 01/02/19 Range/Units 15:53 16:05 09:51 WBC 21.9 H 19.0 H (3.8-10.6) k/uL Neutrophils # 18.0 H 16.0 H (1.3-7.7) k/uL Monocytes # 1.2 H (0-1.0) k/uL BUN (7-17) mg/dL Urine Appearance Cloudy H (Clear) Ur Specific [place] 1.036 H (1.001-1.035) Urine Protein 1+ H (Negative) Urine Ketones 1+ H (Negative) Urine Blood Small H (Negative) Ur Leukocyte Esterase Trace H (Negative) Urine RBC 15 H (0-5) /hpf Urine WBC 20 H (0-5) /hpf Ur Squamous Epith Cells 13 H (0-4) /hpf Amorphous Sediment Occasional H (None) /hpf Urine Bacteria Many H (None) /hpf Urine Mucus Many H (None) /hpf 01/02/19 Range/Units 09:51 WBC (3.8-10.6) k/uL Neutrophils # (1.3-7.7) k/uL Monocytes # (0-1.0) k/uL BUN 6 L (7-17) mg/dL Urine Appearance (Clear) Ur Specific [place] (1.001-1.035) Urine Protein (Negative) Urine Ketones (Negative) Urine Blood (Negative) Ur Leukocyte Esterase (Negative) Urine RBC (0-5) /hpf Urine WBC (0-5) /hpf Ur Squamous Epith Cells (0-4) /hpf Amorphous Sediment (None) /hpf Urine Bacteria (None) /hpf Urine Mucus (None) /hpf Microbiology - Last 24 Hours (Table) 01/01/19 16:05 Urine Culture - Preliminary Urine,Voided Assessment and Plan Assessment: Abdominal pain, could be renal or gastrointestinal versus others Urinary tract infection History of coronary artery disease status post stenting in 2010 Tetralogy of followed as informed Nicotine dependence Plan: This is a pleasant 28 years old female Labs and medication were reviewed.. Continue same treatment. Continue with symptomatic treatment. Resume home medication. Monitor lytes and vitals. DVT and GI prophylaxis. Further recommendations of the clinical course of the patient DVT prophylaxis: Subcutaneous heparin GI Prophylaxis: Ppi
[2019-01-02] MEDS: SODIUM CHLORIDE 0.9% 1,000 ML IV SCH (15:56)
--- NOTE | 2019-01-02 18:19 | P.CONS ---
History of Present Illness - Reason for Consult Consult date: 01/02/19 Abdominal pain Requesting physician: Anil E Sheet - Chief Complaint Abdominal pain - History of Present Illness 28 year old female with past medical history of coronary artery disease, status post cardiac stent in 07/26/2011, tetralogy of fallot and nicotine abuse who pr esents to the hospital with complaints of abdominal pain. The patient reports one week of abdominal pain in the epigastric region of her abdomen and periumbilical region which she describes as constant, and without radiation. The patient reports that the pain was severe in approximately 8/10 in severity prior to presentation but is currently improved today at 2/10. She denies any prior history of GERD, nausea or vomiting or regurgitation. She denies any regular NSAID use at home. No prior endoscopic evaluation reported. The patient also had associated chest pain described as sharp and substernal with no radiation. On presentation to the hospital she was found to have a significant leukocytosis with a WBC 21.9, hemoglobin 14.2, platelet count 364,000, total bilirubin 0.5, alkaline phosphatase 100, AST 16, ALT 26, lipase 48. X-ray of the abdomen was done and was significant for a nonobstructed bowel gas pattern. Review of Systems REVIEW OF SYSTEMS: CONSTITUTIONAL: Denies any fevers, chills, weight change or fatigue. CARDIOVASCULAR: Denies any palpitations high or low blood pressures but she did have some substernal chest pain prior to presentation RESPIRATORY: Denies any shortness of breath, hemoptysis or cough. GENITOURINARY: No dysuria or hematuria. MUSCULOSKELETAL: No weakness reported. SKIN: Denies any new rashes or lesions, jaundice or pallor. PSYCHIATRIC: Denies any depression or anxiety. NEUROLOGY: Denies headache, denies any new focal deficits. EARS/NOSE/THROAT: No recent hearing change, congestion, nasal discharge or sore throat. EYES: No pain in eyes, discharge or change in vision. GASTROINTESTINAL: As per HPI. Past Medical History Past Medical History: Coronary Artery Disease (CAD), Chest Pain / Angina Additional Past Medical History / Comment(s): tetrology of fallot as infant, cardiac stent in jul 26, 2011 for reasons of having chest pain, past kidney failure 2016-resolved. seasonal allergies.colitis History of Any Multi-Drug Resistant Organisms: None Reported Past Surgical History: Heart Catheterization With Stent, Orthopedic Surgery Additional Past Surgical History / Comment(s): heart surgery repair of tetralogy of fallot--infancy (9 days). heart surgery with valve repair at 18 mths. cardiac cath with stent at 2010. left elbow surgery--at 6 yrs of age. oral surgery--at 5 yrs, lt leg debridment 2014(pinned up against a car) Past Anesthesia/Blood Transfusion Reactions: Motion Sickness Date of Last Stent Placement:: jul 26, 2011 Past Psychological History: No Psychological Hx Reported Additional Psychological History / Comment(s): lives with dad. no medical euqipment, no home care services Smoking Status: Current every day smoker Past Alcohol Use History: Occasional Additional Past Alcohol Use History / Comment(s): started smoking at age 19 smoked 1ppd- quit jul 2017 and restarted Past Drug Use History: None Reported - Past Family History Father Family Medical History: No Reported History Additional Family Medical History / Comment(s): back pain Mother Family Medical History: Cancer, Diabetes Mellitus, Hypertension Additional Family Medical History / Comment(s): MRSA, rt below knee amputation Medications and Allergies Home Medications Medication Instructions Recorded Confirmed Type Aspirin [Adult Low Dose Aspirin EC] 81 mg PO DAILY PRN 01/01/19 01/01/19 History [id number] 1 tab PO Q4HR PRN 01/01/19 01/01/19 History [Excedrin] Allergies Allergy/AdvReac Type Severity Reaction Status Date / Time hydromorphone [From Dilaudid] Allergy Dyspnea Verified 01/01/19 16:26 Iodinated Contrast- Oral and AdvReac Unknown Verified 01/01/19 16:26 IV Dye iodine AdvReac Unknown Verified 01/01/19 16:26 Physical Exam Vitals: Vital Signs Temp Pulse Pulse Resp BP BP Pulse Ox 01/02/19 04:54 98.8 F 86 17 105/70 97 01/01/19 21:06 98.2 F 77 18 121/80 96 01/01/19 18:12 98.8 F 86 16 125/73 97 01/01/19 15:30 98.4 F 94 20 122/84 98 Intake and Output 01/01/19 01/02/19 01/02/19 22:59 06:59 14:59 Other: # Voids 1 1 Weight 68.039 kg On physical examination, patient appears comfortable in no apparent distress. HEAD: Normocephalic, atraumatic. EYES: No scleral icterus. No conjunctival injection. MOUTH: No lesions, tongue midline. NECK: Trachea midline, no gross abnormalities. CHEST: Clear to auscultation with no wheezing or rhonchi appreciated. HEART: Regular rate and rhythm. ABDOMEN: Soft. Bowel sounds are positive. No organomegaly. No guarding or rigidity. EXTREMITIES: No pedal edema. SKIN: No rashes, no jaundice. NEUROLOGIC: Alert and oriented x3. No focal deficits. Results CBC & Chem 7: 01/02/19 09:51 01/02/19 09:51 Labs: Abnormal Lab Results - Last 24 Hours (Table) 01/01/19 01/01/19 Range/Units 15:53 16:05 WBC 21.9 H (3.8-10.6) k/uL Neutrophils # 18.0 H (1.3-7.7) k/uL Urine Appearance Cloudy H (Clear) Ur Specific [place] 1.036 H (1.001-1.035) Urine Protein 1+ H (Negative) Urine Ketones 1+ H (Negative) Urine Blood Small H (Negative) Ur Leukocyte Esterase Trace H (Negative) Urine RBC 15 H (0-5) /hpf Urine WBC 20 H (0-5) /hpf Ur Squamous Epith Cells 13 H (0-4) /hpf Amorphous Sediment Occasional H (None) /hpf Urine Bacteria Many H (None) /hpf Urine Mucus Many H (None) /hpf Microbiology - Last 24 Hours (Table) 01/01/19 16:05 Urine Culture - Preliminary Urine,Voided Abdominal x-ray: report reviewed (Abdominal x-ray significant for a nonobstructive bowel gas pattern) Assessment and Plan (1) Abdominal pain Narrative/Plan: Patient presenting with abdominal pain of one week's duration described as loc ated in the epigastric and periumbilical region. No prior episodes of similar pain, she denies any history of reflux, and reports that NSAID use is very infrequent. She denies any signs or symptoms of GI bleeding. Differential is broad including viral or bacterial gastroenteritis, esophagitis, dyspepsia, functional bowel disorder or other etiology. Current Visit: Yes Status: Acute Code(s): R10.9 - UNSPECIFIED ABDOMINAL PAIN SNOMED Code(s): 83325543 Plan: Supportive care Okay for diet Continue Protonix therapy Nothing by mouth after midnight Plan for EGD for further evaluation Extensive discussion with the patient about the risks, side effects and benefits of performing upper endoscopy and at this time she would like to proceed with the procedure If the patient continues to have pain can consider ultrasound of the abdomen for further evaluation and to rule out symptomatic cholelithiasis although this remains lower in the differential given the description of the patient's quality of pain Thank you for allowing us to participate in the care of the patient we will continue to follow
[2019-01-02] MEDS: HEPARIN SODIUM,PORCINE 5,000 UNIT/ML 1 ML VIAL SQ SCH (20:05)
[2019-01-03] MEDS: SODIUM CHLORIDE 0.9% 1,000 ML IV SCH ×2 (05:17→17:08)
[2019-01-03 07:19] LABS: Basophils # (A) 0.1 k/uL (0-0.2); Basophils % (A) 0 %; Eosinophils # (A) 0.2 k/uL (0-0.7); Eosinophils % (A) 1 %; HCT 40.4 % (34.0-46.0); HGB 13.1 gm/dL (11.4-16.0); Lymphocytes # (A) 1.9 k/uL (1.0-4.8); Lymphocytes % (A) 11 %; MCH 29.9 pg (25.0-35.0); MCHC 32.4 g/dL (31.0-37.0); MCV 92.3 fL (80.0-100.0); Mean Platelet Volume 6.8; Monocytes % (A) 6 %; Neutrophils # (A) 13.9 k/uL (1.3-7.7); Neutrophils % (A) 80 %; Platelet Count 404 k/uL (150-450); RBC 4.38 m/uL (3.80-5.40); RDW 14.5 % (11.5-15.5); WBC 17.4 k/uL (3.8-10.6)
--- NOTE | 2019-01-03 08:32 | P.PN ---
Subjective This is a pleasant 28 years old female with past medical history of coronary artery disease, status post cardiac stent in 07/26/2011, tetralogy of followed as an . Presents with abdominal pain for 1 week duration on and off which got worse for the last 2 days, the pain is periumbilical mainly on the left side, nonradiating, nonspecific about 7-8/10 in severity, and down today to 2/10. She has normal bowel movement with no nausea vomiting currently although she vomited once yesterday with no blood. She is also complaining of from bladd er irritations and increased frequency with small amounts of urine. No suprapubic tenderness. No chest pain or dyspnea. No dizziness. Is tolerating diet well Vitals stable, she has leukocytosis of 21.9 and 19 K. Rest of CBC, BMP and liver enzyme Labs were unremarkable. Urine analysis is suspicious for infection. Urine culture is pending. EKG showing normal sinus rhythm at 79 with right bundle branch block and QTC of 495. Chest x-ray showing no acute cardiopulmonary process and abdominal x-ray showing nonobstructive bowel gas pattern as per radiologist. Patient was started on ceftazidime and Flagyl. And Protonix 01/03/2019 Patient abdominal pain is improving, it as 1/10 in the periumbilical area. Patient is going for a EGD today. Leukocytosis is improving. UA is n egative urine culture is pending Objective - Vital Signs Vital signs: Vital Signs Temp 98.5 F 01/03/19 05:23 Pulse 61 01/03/19 05:23 Resp 17 01/03/19 05:23 BP 113/72 01/03/19 05:23 Pulse Ox 97 01/03/19 05:23 Intake & Output 01/02/19 01/03/19 01/03/19 18:59 06:59 18:59 Other: # Voids 2 2 - Exam GENERAL: The patient is alert and oriented x3, not in any acute distress. Well developed, well nourished. HEENT: Pupils are round and equally reacting to light. EOMI. No scleral icterus. No conjunctival pallor. Normocephalic, atraumatic. No pharyngeal erythema. No thyromegaly. CARDIOVASCULAR: S1 and S2 present. No murmurs, rubs, or gallops. PULMONARY: Chest is clear to auscultation, no wheezing or crackles. -ABDOMEN: Soft, mild periumbilical tenderness, and to the left. No suprapubic tenderness, no rebound tenderness or guarding. nondistended, normoactive bowel sounds. No palpable organomegaly. MUSCULOSKELETAL: No joint swelling or deformity. EXTREMITIES: No cyanosis, clubbing, or pedal edema. NEUROLOGICAL: Gross neurological examination did not reveal any focal deficits. SKIN: No rashes. - Labs CBC & Chem 7: 01/03/19 06:55 01/02/19 09:51 Labs: Abnormal Lab Results - Last 24 Hours (Table) 01/02/19 01/02/19 01/03/19 Range/Units 09:51 09:51 06:55 WBC 19.0 H 17.4 H (3.8-10.6) k/uL Neutrophils # 16.0 H 13.9 H (1.3-7.7) k/uL Monocytes # 1.2 H (0-1.0) k/uL BUN 6 L (7-17) mg/dL Microbiology - Last 24 Hours (Table) 01/01/19 16:57 Blood Culture - Preliminary Blood No Growth after 24 hours 01/01/19 16:05 Urine Culture - Final Urine,Voided Assessment and Plan Assessment: Abdominal pain, could be renal or gastrointestinal versus others Urinary tract infection History of coronary artery disease status post stenting in 2010 Tetralogy of followed as informed Nicotine dependence Plan: This is a pleasant 28 years old female Labs and medication were reviewed.. Continue same treatment. Continue with symptomatic treatment. Resume home medication. Monitor lytes and vitals. DVT and GI prophylaxis. Further recommendations of the clinical course of the patient DVT prophylaxis: Subcutaneous heparin GI Prophylaxis: Ppi
[2019-01-03] MEDS: PANTOPRAZOLE 40 MG/10 ML VIAL IV SCH (08:36)
[2019-01-03] MEDS: HEPARIN SODIUM,PORCINE 5,000 UNIT/ML 1 ML VIAL SQ SCH ×2 (08:38→19:57)
[2019-01-03] MEDS ORDERED: LIDOCAINE 1% INJ 10MG/ML (20 ML MDV) ONE (08:40)
[2019-01-03] MEDS ORDERED: PROPOFOL 10 MG/ML 20 ML VIAL IV ONE (08:40)
[2019-01-03] MEDS ORDERED: MIDAZOLAM 2 MG/2 ML VIAL ONE (08:40)
[2019-01-03] MEDS ORDERED: fentaNYL (PF) 50 MCG/ML 2 ML AMP ONE (08:40)
[2019-01-03] MEDS ORDERED: IV FLUID CONTINUATION 1,000 ML IV ONE (08:42)
--- NOTE | 2019-01-03 09:00 | P.PCN ---
Date of Procedure: 01/03/19 Description of Procedure: BRIEF HISTORY: 28 year old female with past medical history of coronary artery disease, status post cardiac stent in 07/26/2011, tetralogy of fallot and nicotine abuse who presents to the hospital with complaints of abdominal pain. The patient reports one week of abdominal pain in the epigastric region of her abdomen and periumbilical region which she describes as constant, and without radiation. The patient reports that the pain was severe in approximately 8/10 in severity prior to presentation but is currently improved today at 2/10. She denies any prior history of GERD, nausea or vomiting or regurgitation. She denies any regular NSAID use at home. No prior endoscopic evaluation reported. The patient also had associated chest pain described as sharp and substernal with no radiation. On presentation to the hospital she was found to have a significant leukocytosis with a WBC 21.9, hemoglobin 14.2, platelet count 364,000, total bilirubin 0.5, alkaline phosphatase 100, AST 16, ALT 26, lipase 48. X-ray of the abdomen was done and was significant for a nonobstructed bowel gas pattern.. PROCEDURE PERFORMED: Esophagogastroduodenoscopy with biopsy. PREOPERATIVE DIAGNOSIS: Epigastric abdominal pain. ESTIMATED BLOOD LOSS: Minimal. IV sedation per anesthesia. PROCEDURE: After informed consent was obtained, the patient was brought into the endoscopy unit. IV sedation was administered by Anesthesia under continuous monitoring. Initially the Olympus GIF-190 video endoscope was inserted into the mouth. Esophagus intubated without any difficulty. It was gradually advanced into the stomach and duodenum and carefully examined. The bulb and the second part of the duodenum appeared normal, with biopsies taken. The scope at this time was withdrawn to the stomach, adequately insufflated with air, and upon careful examination, mucosa of the antrum, body, cardia and the fundus appeared, except for some mild scattered erythema of the antrum and body suggestive of mild gastritis with biopsies taken. The scope was then withdrawn into the esophagus. The patient had a medium-sized hiatal hernia. The GE junction was located at 37 cm from the incisors. The esophagus appeared normal. There were no erosions or ulcerations seen and the patient tolerated the procedure well. IMPRESSION: 1. Mild gastritis antrum and body, biopsied. 2. Duodenal biopsies. 3. Hiatal hernia. RECOMMENDATIONS: The findings of this examination were discussed with the patient. Okay to resume diet. Would continue the patient on Protonix 40 mg daily. Await pathology from biopsies. Okay for discharge from gastroenterology standpoint if otherwise medically stable. Follow up with gastroenterology as needed.
[2019-01-03 09:35] LABS: Appearance,Urine Turbid (Clear); Bacteria,Urine Moderate /hpf; Bilirubin,Urine Negative (Negative); Blood,Urine Negative (Negative); Color,Urine Yellow; Glucose,Urine (UA) Negative (Negative); Ketones,Urine 1+ (Negative); Leukocyte Esterase,Urine Negative (Negative); Mucus,Urine Many /hpf; Nitrite,Urine Negative (Negative); Protein,Urine 1+ (Negative); RBC,Urine 5 /hpf (0-5); Specific Gravity,Urine 1.028 (1.001-1.035); Squamous Epithelial Cell,Urine 3 /hpf (0-4); Urobilinogen,Urine <2.0 mg/dL (<2.0); WBC,Urine 14 /hpf (0-5)
[2019-01-03] MEDS: ACETAMINOPHEN TAB 325 MG TAB PO PRN ×2 (12:26→23:14)
[2019-01-03] MEDS: ONDANSETRON 4 MG/2 ML VIAL IVP PRN (23:13)
[2019-01-04] MEDS: SODIUM CHLORIDE 0.9% 1,000 ML IV SCH (07:11)
[2019-01-04] MEDS: PANTOPRAZOLE 40 MG/10 ML VIAL IV SCH (07:14)
[2019-01-04] MEDS: HEPARIN SODIUM,PORCINE 5,000 UNIT/ML 1 ML VIAL SQ SCH (07:14)
[2019-01-04 08:16] LABS: Basophils # (A) 0.1 k/uL (0-0.2); Basophils % (A) 1 %; Eosinophils # (A) 0.2 k/uL (0-0.7); Eosinophils % (A) 2 %; HCT 39.4 % (34.0-46.0); HGB 12.5 gm/dL (11.4-16.0); Lymphocytes # (A) 2.6 k/uL (1.0-4.8); Lymphocytes % (A) 22 %; MCH 29.9 pg (25.0-35.0); MCHC 31.8 g/dL (31.0-37.0); MCV 94.2 fL (80.0-100.0); Mean Platelet Volume 6.5; Monocytes # (A) 0.8 k/uL (0-1.0); Monocytes % (A) 7 %; Neutrophils # (A) 7.9 k/uL (1.3-7.7); Neutrophils % (A) 66 %; Platelet Count 352 k/uL (150-450); RBC 4.18 m/uL (3.80-5.40); RDW 14.2 % (11.5-15.5); WBC 12.1 k/uL (3.8-10.6)
[2019-01-04 08:29] VITALS: BP 111/74; PULSE 64; RESP 18; TEMP 98.1
--- NOTE | 2019-01-04 10:43 | P.DS ---
Providers Date of admission: 01/01/19 16:55 Attending physician: Violeta Rhoades Consults: 01/01/19 16:37 Consult Physician Routine Consulting Provider: Eun Isaac Consult Reason/Comments: abdominal pain Do you want consulting provider notified?: Yes Primary care physician: Stated None Hospital Course: Diagnoses: Urinary tract infection Mild gastritis, status post EGD History of coronary artery disease status post stenting in 2010 Tetralogy of followed as informed Nicotine [facility] course This is a pleasant 28 years old female who presents with abdominal pain and leukocytosis of 29K. Patient found to have urinary tract infection and she was treated with ceftriaxone, although urine culture was negative however her symptoms of urinary regurgitation and polyuria has resolved and her white cell count came back down to 12.1 K on the day of discharge. The same time GI team evaluated the patient and they did EGD which showed mild gastritis, biopsy were taken. On the day of discharge patient her symptoms of abdominal pain is completely resolved, she is tolerating diet well and having regular bowel movements. Her urinary complaints resolved also and back to normal. No other complaints. Patient was cleared by GI team for discharge, patient was eager to go home. Problems and management plan was discussed patient's and details and she verbalized understanding and acceptance Patient was found stable and can be discharged home however she needs follow-up as an outpatient. Patient stated she does not have the PCP and she agrees to follow up with Dr. Calle, patient was instructed to follow up with him in one week and she agrees, also she is aware she will need to recheck her white cell count and to follow-up the biopsy results with the GI team. Patient was instructed to follow up with gastroenterology clinic within 2 weeks and she agrees as well Patient agrees with the appointments and timing made for her with and she says she will follow-up Risks of biopsy including but not limited to cancer and infection and she verbalized understanding and acceptance Also she was provided fully with 10 days of Protonix and she said if she will need more she will follow up with Dr. Calle to get more for financial reasons. Gen: patient is a AAOx3, no distress CVS: S1-S2, RRR, no murmur Lungs: B/L CTA, no wheezing Abdomen: soft, no distention, no tenderness, positive bowel sounds Extremity: no leg edema or induration Time spent more than 35 minutes Patient Condition at Discharge: Fair Plan - Discharge Summary Discharge Rx Participant: No New Discharge Prescriptions: New Cefuroxime Axetil [Ceftin] 500 mg PO BID 5 Days #10 tab Acetaminophen Tab [Tylenol] 650 mg PO Q6HR PRN tab PRN Reason: Mild Pain Or Fever > 100.5 Pantoprazole Sodium [Protonix] 40 mg PO DAILY #10 tablet. Continue [id number] [Excedrin] 1 tab PO Q4HR PRN PRN Reason: Migraine Headache Aspirin [Adult Low Dose Aspirin EC] 81 mg PO DAILY PRN PRN Reason: Chest Pain Discharge Medication List Aspirin [Adult Low Dose Aspirin EC] 81 mg PO DAILY PRN 01/01/19 [History] Tazrlkb-[id number] [id number] [Excedrin] 1 tab PO Q4HR PRN 01/01/19 [History] Acetaminophen Tab [Tylenol] 650 mg PO Q6HR PRN tab 01/04/19 [Rx] Cefuroxime Axetil [Ceftin] 500 mg PO BID 5 Days #10 tab 01/04/19 [Rx] Pantoprazole Sodium [Protonix] 40 mg PO DAILY #10 tablet. 01/04/19 [Rx] Follow up Appointment(s)/Referral(s): Daniel Paniagua MD [REFERRING] - 1 Week (check your white cell count with your doctor ) Trevor Tamayo MD [STAFF PHYSICIAN] - 2 Weeks (follow your biopsies with your doctor ) Patient Instructions/Handouts: Pantoprazole (By mouth), Hiatal Hernia (GEN), Gastritis (GEN) Activity/Diet/Wound Care/Special Instructions: regular diet activity is limited till you see your doctor Discharge Disposition: HOME SELF-CARE
[2019-01-05] MEDS ORDERED: PANTOPRAZOLE 40 MG TABLET PO SCH (09:00)
== END 2019-01-04 12:51 | disposition home or self-care (01) ==
LOC: EC 15:20 → 3NMEDONC 16:55 → 6PED 01-04 08:34
PROVIDERS: ADMIT Internal Medicine; ATTEND Internal Medicine
DX: K29.50 Unspecified chronic gastritis without bleeding (principal); N39.0 Urinary tract infection, site not specified; I25.10 Atherosclerotic heart disease of native coronary artery without angina pectoris; K29.80 Duodenitis without bleeding; F17.200 Nicotine dependence, unspecified, uncomplicated; I45.10 Unspecified right bundle-branch block; K44.9 Diaphragmatic hernia without obstruction or gangrene; Z95.5 Presence of coronary angioplasty implant and graft; Z79.82 Long term (current) use of aspirin; Z82.49 Family history of ischemic heart disease and other diseases of the circulatory system; Z83.3 Family history of diabetes mellitus
CPT/HCPCS: 96367; 96372 ×2; 96375 ×2; 96376; 96365; 99285; 36415; 93005; 88305; 80053; 80048; 82248; 83690; 83735; 84484; 85025 ×4; 81001 ×2; 81025; 84703; 87040; 87086; 71046; 74018; 43239; G0378 ×4; J0713; J2250; J1644 ×2; J2405 ×3; J2001; J0696 ×2; J3010; J2704; C9113 ×3

== ENCOUNTER 2019-05-12 23:53 | Emergency (ER) | payer MEDICARE, OTHER ==
[2019-05-12 23:57] VITALS: BP 146/85; PULSE 74; RESP 20; TEMP 98
[2019-05-12] MEDS ORDERED: DIPH,PERTUS(ACELL)TETVAC-LF 0.5 ML VIAL IM ONE (23:58)
[2019-05-13] MEDS ORDERED: WATER FOR IRRIG, STERILE 1,000 ML BTL IRRIGATION ONE (01:04)
[2019-05-13] MEDS ORDERED: LIDOCAINE 1% INJ 10MG/ML (20 ML MDV) SQ STA (01:04)
[2019-05-13] MEDS ORDERED: GELATIN SPONGE,ABSORB (LARGE) 1 EACH SPONGE TOPICAL STA (01:16)
[2019-05-13] MEDS ORDERED: CEPHALEXIN 500 MG CAP PO STA (01:32)
[2019-05-13] MEDS ORDERED: CEPHALEXIN 500MG STARTER PACK 4 CAP BTL PO STA (01:32)
--- NOTE | 2019-05-13 01:45 | ED ---
General Adult HPI - General Chief complaint: Wound/Laceration Stated complaint: R Thumb Lac Time Seen by Provider: 05/13/19 00:38 Source: patient, RN notes reviewed, old records reviewed Mode of arrival: ambulatory Limitations: no limitations - History of Present Illness Initial comments: 28-year-old female patient presented the chief complaint of laceration to distal pad of left thumb. Patient reports that she was opening a can when she cut her thumb on the sharp edge. This occurred approximately 4 hours ago. Patient does not know date of last tetanus. Patient states that he can lid did not break, denies any foreign body. Patient states she is not . Patient denies all other complaints. Systemic: Pt denies fatigue, fever/chills, rash. Pt denies weakness, night sweats, weight loss. Neuro: Pt denies headache, visual disturbances, syncope or pre-syncope. HEENT: Pt denies ocular discharge or irritation, otalgia, rhinorrhea, pharyngi tis or notable lymphadenopathy. Cardiopulmonary: Pt denies chest pain, SOB, heart palpitations, dyspnea on exertion. Abdominal/GI: Pt denies abdominal pain, n/v/d. : Pt denies dysuria, burning w/ urination, frequency/urgency. Denies new onset urinary or bowel incontinence. MSK: Pt denies myalgia, loss of strength or function in extremities. Neuro: Pt denies new onset weakness, paresthesias. - Related Data Home Medications Medication Instructions Recorded Confirmed Aspirin [Adult Low Dose Aspirin EC] 81 mg PO DAILY PRN 01/01/19 01/01/19 [id number] 1 tab PO Q4HR PRN 01/01/19 01/01/19 [Excedrin] Previous Rx's Medication Instructions Recorded Acetaminophen Tab [Tylenol] 650 mg PO Q6HR PRN tab 01/04/19 Cefuroxime Axetil [Ceftin] 500 mg PO BID 5 Days #10 tab 01/04/19 Pantoprazole Sodium [Protonix] 40 mg PO DAILY #10 tablet. 01/04/19 Cephalexin [Keflex] 500 mg PO Q6HR 7 Days #28 cap 05/13/19 Allergies Allergy/AdvReac Type Severity Reaction Status Date / Time hydromorphone [From Dilaudid] Allergy Dyspnea Verified 05/12/19 23:58 Iodinated Contrast- Oral and AdvReac Unknown Verified 05/12/19 23:58 IV Dye iodine AdvReac Unknown Verified 05/12/19 23:58 Review of Systems ROS Statement: Those systems with pertinent positive or pertinent negative responses have been documented in the HPI. ROS Other: All systems not noted in ROS Statement are negative. Past Medical History Past Medical History: Coronary Artery Disease (CAD), Chest Pain / Angina Additional Past Medical History / Comment(s): tetrology of fallot as , cardiac stent in jul 26, 2011 for reasons of having chest pain, past kidney failure 2016-resolved. seasonal allergies.colitis History of Any Multi-Drug Resistant Organisms: None Reported Past Surgical History: Heart Catheterization With Stent, Orthopedic Surgery Additional Past Surgical History / Comment(s): heart surgery repair of tetralogy of fallot--infancy (9 days). heart surgery with valve repair at 18 mths. cardiac cath with stent at 2010. left elbow surgery--at 6 yrs of age. oral surgery--at 5 yrs, lt leg debridment 2014(pinned up against a car) Past Anesthesia/Blood Transfusion Reactions: Motion Sickness Date of Last Stent Placement:: jul 26, 2011 Past Psychological History: No Psychological Hx Reported Smoking Status: Current every day smoker Past Alcohol Use History: Occasional Past Drug Use History: None Reported - Past Family History Father Family Medical History: No Reported History Additional Family Medical History / Comment(s): back pain Mother Family Medical History: Cancer, Diabetes Mellitus, Hypertension Additional Family Medical History / Comment(s): MRSA, rt below knee amputation General Exam - General Exam Comments Initial Comments: Constitutional: NAD, AOX3, Pt has pleasant affect. HEENT: NC/AT, trachea midline, neck supple, no lymphadenopathy. Posterior pharynx non erythematous, without exudates. External ears appear normal, without discharge. Mucous membranes moist. Eyes PERRLA, EOM intact. There is no scleral icterus. No pallor noted. Cardiopulmonary: RRR, no murmurs, rubs or gallops, no JVD noted. Lungs CTAB in anterior and posterior canchola. No peripheral edema. Abdominal exam: Abdomen soft and non-distended. Abdomen non-tender to palpation in all 4 quadrants. Bowel sounds active in LLQ. No hepatosplenomegaly. No ecchymosis Neuro: CN II-XII grossly intact. No nuchal rigidity. No raccon eyes, no cleveland sign, no hemotympanum. No cervical spinal tenderness. MSK: 1.5 cm laceration avulsion to distal pad of L thumb. Cleaned vigorously in ED, no foreign body noted. No osseous involvement. Wound unable to be approximated. Hemostasis is achieved using Gelfoam. No posterior calf tenderness bilaterally, homans sign negative bilaterally. Posterior tibialis and radial pulse +2 bilaterally. Sensation intact in upper and lower extremities. Full active ROM in upper and lower extremities, 5/5 stregnth. Limitations: no limitations Course Vital Signs 05/12/19 23:55 Temperature 98.0 F Pulse Rate 74 Respiratory 20 Rate Blood Pressure 146/85 O2 Sat by Pulse 99 Oximetry Medical Decision Making - Medical Decision Making 28-year-old female patient presented the chief complaint of laceration to distal pad of left thumb. Patient reports that she was opening a can when she cut her thumb on the sharp edge. This occurred approximately 4 hours ago. Patient does not know date of last tetanus. Patient states that he can lid did not break, denies any foreign body. Patient states she is not . Patient denies all other complaints. Pt VSS, afebrile. Physical exam displayed: 1.5 cm laceration avulsion to distal pad of L thumb. Cleaned vigorously in ED, no foreign body noted. No osseous involvement. Wound unable to be approximated. Hemostasis is achieved using Gelfoam. Patient discharged with Keflex, follow up with primary care provider. Patient will keep Gelfoam on for approximately 24 hours. Afterwards patient will keep wound clean and dry and covered. Hell monitor for signs and symptoms of infection, return to ER if condition worsens in any way. Case discussed with Dr. Steele. Disposition Clinical Impression: Laceration Disposition: HOME SELF-CARE Condition: Stable Instructions (If sedation given, give patient instructions): Laceration (ED) Additional Instructions: Patient to adhere to previously discussed treatment plan and will take medication(s) as directed. Patient to follow up with PCP in 1-2 days. Patient to return to ED if symptoms do not improve. Wear Gelfoam for approximately 24 hours. Take antibiotic as prescribed. Keep wound clean and dry. Follow-up with primary care provider for wound recheck. Return to ER if condition worsens. Please return for suture removal: Please monitor for signs and symptoms of infection including: redness, warmth, drainage, discharge. Please return to ED if these signs or symptoms occur, new signs or symptoms develop or if condition worsens in anyway. Prescriptions: Cephalexin [Keflex] 500 mg PO Q6HR 7 Days #28 cap Is patient prescribed a controlled substance at d/c from ED?: No Referrals: None,Stated [Primary Care Provider] - 1-2 days
== END 2019-05-13 01:58 | disposition home or self-care (01) ==
LOC: EC 23:53
DX: S61.011A Laceration without foreign body of right thumb without damage to nail, initial encounter (principal); I25.10 Atherosclerotic heart disease of native coronary artery without angina pectoris; F17.200 Nicotine dependence, unspecified, uncomplicated; Z23 Encounter for immunization; Z95.5 Presence of coronary angioplasty implant and graft; Z88.5 Allergy status to narcotic agent; Z91.041 Radiographic dye allergy status; Z79.82 Long term (current) use of aspirin; W26.8XXA Contact with other sharp object(s), not elsewhere classified, initial encounter; Y93.89 Activity, other specified; Y92.009 Unspecified place in unspecified non-institutional (private) residence as the place of occurrence of the external cause
CPT/HCPCS: 90471; 90715; 99283

== ENCOUNTER 2019-08-14 14:53 | Emergency (ER) | payer MEDICARE, OTHER ==
--- NOTE | 2019-08-14 16:17 | ED ---
Abdominal Pain HPI - General Chief Complaint: Abdominal Pain Stated Complaint: Abd pain, chest pain Time Seen by Provider: 08/14/19 15:48 Source: patient Mode of arrival: ambulatory Limitations: no limitations - History of Present Illness Initial Comments: 28-year-old female presenting for multiple complaints patient has history of tetralogy of fallot and ulcerative colitis patient states that for the past week she has had abdominal pain near her umbilicus she has had occasional bloody stools. Patient states she always has issues with soft stools because she has history of ulcerative colitis. Patient states she has not had that many issues within the last few years. Patient denies any fevers patient describes the pain as sharp and occasional she denies it being constant. Patient states she also noted for the past 4-5 days she had occasional sharp pain in her chest. She doesn't increase with respiration and is very infrequent. Denies being consistent or increasing frequency she does she make noted that since she was coming to the emergency department for her abdominal pain. Patient denies any chest pressure dropped pain arm pain denies any back pain epigastric pain nausea vomiting hemoptysis melena hematochezia. Patient is no other complaints and upon arrival she appears well no signs of acute distress. Remaining review of system negative. Patient denies any history of DVT pulmonary embolism aneurysm or anticoagulation use. Last diabetes denies hypertension. - Related Data Home Medications Medication Instructions Recorded Confirmed Aspirin [Adult Low Dose Aspirin EC] 81 mg PO DAILY PRN 01/01/19 01/01/19 [id number] 1 tab PO Q4HR PRN 01/01/19 01/01/19 [Excedrin] Previous Rx's Medication Instructions Recorded Acetaminophen Tab [Tylenol] 650 mg PO Q6HR PRN tab 01/04/19 Cefuroxime Axetil [Ceftin] 500 mg PO BID 5 Days #10 tab 01/04/19 Pantoprazole Sodium [Protonix] 40 mg PO DAILY #10 tablet. 01/04/19 Cephalexin [Keflex] 500 mg PO Q6HR 7 Days #28 cap 05/13/19 predniSONE 20 mg PO BID 5 Days #10 tab 08/14/19 Allergies Allergy/AdvReac Type Severity Reaction Status Date / Time hydromorphone [From Dilaudid] Allergy Dyspnea Verified 08/14/19 14:58 Iodinated Contrast Media AdvReac Unknown Verified 08/14/19 14:58 [Iodinated Contrast- Oral and IV Dye] iodine AdvReac Unknown Verified 08/14/19 14:58 Review of Systems ROS Statement: Those systems with pertinent positive or pertinent negative responses have been documented in the HPI. ROS Other: All systems not noted in ROS Statement are negative. Past Medical History Past Medical History: Coronary Artery Disease (CAD), Chest Pain / Angina Additional Past Medical History / Comment(s): tetrology of fallot as infant, cardiac stent in jul 26, 2011 for reasons of having chest pain, past kidney failure 2016-resolved. seasonal allergies.colitis History of Any Multi-Drug Resistant Organisms: None Reported Past Surgical History: Heart Catheterization With Stent, Orthopedic Surgery Additional Past Surgical History / Comment(s): heart surgery repair of tetralogy of fallot--infancy (9 days). heart surgery with valve repair at 18 mths. cardiac cath with stent at 2010. left elbow surgery--at 6 yrs of age. oral surgery--at 5 yrs, lt leg debridment 2014(pinned up against a car) Past Anesthesia/Blood Transfusion Reactions: Motion Sickness Date of Last Stent Placement:: jul 26, 2011 Past Psychological History: No Psychological Hx Reported Smoking Status: Current every day smoker Past Alcohol Use History: None Reported Past Drug Use History: None Reported - Past Family History Father Family Medical History: No Reported History Additional Family Medical History / Comment(s): back pain Mother Family Medical History: Cancer, Diabetes Mellitus, Hypertension Additional Family Medical History / Comment(s): MRSA, rt below knee amputation General Exam - General Exam Comments Initial Comments: General: The patient is awake and alert, in no distress, and does not appear acutely ill. Eye: +3 mm pupils are equal, round and reactive to light, extra-ocular movements are intact. No nystagmus. There is normal conjunctiva bilaterally. No signs of icterus. Ears, nose, mouth and throat: There are moist mucous membranes and no oral lesions. Neck: The neck is supple, there is no tenderness or JVD. Cardiovascular: There is a regular rate and rhythm. Murmur audible on exam however no rub or gallop is appreciated. Respiratory: Lungs are clear to auscultation, respirations are non-labored, breath sounds are equal. No wheezes, stridor, rales, or rhonchi. Gastrointestinal: Soft, non-distended, periumbilical tenderness to patient the abdomen was also found to be present in the left lower quadrant abdomen without masses or organomegaly noted. There is no rebound or guarding present. Musculoskeletal: Normal ROM, no tenderness. Strength 5/5. Sensation intact. Pulses equal bilaterally 2+. Neurological: A&O x 3. CN II-XII intact grossly, There are no obvious motor or sensory deficits. Coordination appears grossly intact. Speech is normal. Skin: Skin is warm and dry and no rashes or lesions are noted. No lower extremity edema Psychiatric: Cooperative, appropriate mood & affect, normal judgment. Limitations: no limitations Course Vital Signs 08/14/19 08/14/19 14:59 18:49 Temperature 98.4 F 97.9 F Pulse Rate 80 83 Respiratory 18 20 Rate Blood Pressure 135/79 130/68 O2 Sat by Pulse 96 99 Oximetry Medical Decision Making - Medical Decision Making 28-year-old female appearing for 2 complaints she states they appear separate. Patient's history of ulcerative colitis. Pancolitis with ileus backwash on CT. Patient has leukocytosis however there is no evidence of abscess formation. Patient will be discharged with steroids as her symptoms are controlled no findings consistent with severe abdominal pain. As far as patient's chest pain appears very atypical sharp for occasional no specific pattern occasionally present with inspiration. No cough or upper respiratory symptoms. Chest x-ray revealed post surgical changes no acute findings. EKG revealed a right bundle branch block which was present on most recent stent previous EKG no acute findings. Patient's troponin negative d-dimer was mildly elevated however CT angiography was negative for acute process including pulmonary embolism. Meggan ent is currently symptom-free as far as the chest pain has mild controlled abdominal pain at this she still for discharge with outpatient cardiology gastroenterology follow-up patient is agreeable to this care plan and was discharged appearing well after discussed the case with my attending provider Dr. Purdy Ventricular rate 81 bpm, TN interval 150 ms, QR scientologist 158 ms, QT/QTC 4:30/499 ms as is normal sinus rhythm with a right bundle branch block. No ST elevation or depression appreciated. EKG similar to that most recent previous. EKG per se interpreted and reviewed - Lab Data Result diagrams: 08/14/19 15:48 08/14/19 15:48 Lab Results 08/14/19 08/14/19 08/14/19 Range/Units 15:48 15:48 15:48 WBC 17.7 H (3.8-10.6) k/uL RBC 4.30 (3.80-5.40) m/uL Hgb 13.4 (11.4-16.0) gm/dL Hct 40.3 (34.0-46.0) % MCV 93.6 (80.0-100.0) fL MCH 31.2 (25.0-35.0) pg MCHC 33.3 (31.0-37.0) g/dL RDW 13.5 (11.5-15.5) % Plt Count 330 (150-450) k/uL Neutrophils % 77 % Lymphocytes % 13 % Monocytes % 8 % Eosinophils % 1 % Basophils % 0 % Neutrophils # 13.6 H (1.3-7.7) k/uL Lymphocytes # 2.3 (1.0-4.8) k/uL Monocytes # 1.5 H (0-1.0) k/uL Eosinophils # 0.1 (0-0.7) k/uL Basophils # 0.1 (0-0.2) k/uL PT 10.0 (9.0-12.0) sec INR 0.9 (<1.2) APTT 26.2 (22.0-30.0) sec D-Dimer 1.04 H (<0.60) mg/L FEU Sodium 141 (137-145) mmol/L Potassium 3.9 (3.5-5.1) mmol/L Chloride 107 (98-107) mmol/L Carbon Dioxide 25 (22-30) mmol/L Anion Gap 9 mmol/L BUN 8 (7-17) mg/dL Creatinine 0.81 (0.52-1.04) mg/dL Est GFR (CKD-EPI)AfAm >90 (>60 ml/min/1.73 sqM) Est GFR (CKD-EPI)NonAf >90 (>60 ml/min/1.73 sqM) Glucose 96 (74-99) mg/dL Calcium 9.3 (8.4-10.2) mg/dL Magnesium 2.1 (1.6-2.3) mg/dL Total Bilirubin 0.5 (0.2-1.3) mg/dL AST 23 (14-36) U/L ALT 28 (9-52) U/L Alkaline Phosphatase 84 (38-126) U/L Troponin I (0.000-0.034) ng/mL Total Protein 7.6 (6.3-8.2) g/dL Albumin 4.3 (3.5-5.0) g/dL Lipase 38 (23-300) U/L 08/14/19 Range/Units 15:48 WBC (3.8-10.6) k/uL RBC (3.80-5.40) m/uL Hgb (11.4-16.0) gm/dL Hct (34.0-46.0) % MCV (80.0-100.0) fL MCH (25.0-35.0) pg MCHC (31.0-37.0) g/dL RDW (11.5-15.5) % Plt Count (150-450) k/uL Neutrophils % % Lymphocytes % % Monocytes % % Eosinophils % % Basophils % % Neutrophils # (1.3-7.7) k/uL Lymphocytes # (1.0-4.8) k/uL Monocytes # (0-1.0) k/uL Eosinophils # (0-0.7) k/uL Basophils # (0-0.2) k/uL PT (9.0-12.0) sec INR (<1.2) APTT (22.0-30.0) sec D-Dimer (<0.60) mg/L FEU Sodium (137-145) mmol/L Potassium (3.5-5.1) mmol/L Chloride (98-107) mmol/L Carbon Dioxide (22-30) mmol/L Anion Gap mmol/L BUN (7-17) mg/dL Creatinine (0.52-1.04) mg/dL Est GFR (CKD-EPI)AfAm (>60 ml/min/1.73 sqM) Est GFR (CKD-EPI)NonAf (>60 ml/min/1.73 sqM) Glucose (74-99) mg/dL Calcium (8.4-10.2) mg/dL Magnesium (1.6-2.3) mg/dL Total Bilirubin (0.2-1.3) mg/dL AST (14-36) U/L ALT (9-52) U/L Alkaline Phosphatase (38-126) U/L Troponin I <0.012 (0.000-0.034) ng/mL Total Protein (6.3-8.2) g/dL Albumin (3.5-5.0) g/dL Lipase (23-300) U/L Disposition Clinical Impression: Abdominal pain, Pancolitis, Atypical chest pain Disposition: HOME SELF-CARE Condition: Good Instructions (If sedation given, give patient instructions): Colitis (ED) Additional Instructions: Please use medication as discussed. Please follow-up with family doctor in the next 2 days, schedule follow-up with [facility] [facility] core layer, and follow-up with GI for abdominal pain. Please return to emergency room if the symptoms increase or worsen or for any other concerns. Prescriptions: predniSONE 20 mg PO BID 5 Days #10 tab Is patient prescribed a controlled substance at d/c from ED?: No Referrals: None,Stated [Primary Care Provider] - 1-2 days Eun Isaac MD [STAFF PHYSICIAN] - 1-2 days Time of Disposition: 18:34
[2019-08-14 16:37] LABS: ALT 28 U/L (9-52); AST 23 U/L (14-36); African American GFR (CKD) >90 (>60 ml/min/1.73 sqM); Albumin 4.3 g/dL (3.5-5.0); Alkaline Phosphatase 84 U/L (38-126); Anion Gap 9 mmol/L; Basophils # (A) 0.1 k/uL (0-0.2); Basophils % (A) 0 %; Blood Urea Nitrogen 8 mg/dL (7-17); Calcium 9.3 mg/dL (8.4-10.2); Carbon Dioxide 25 mmol/L (22-30); Chloride 107 mmol/L (98-107); Eosinophils # (A) 0.1 k/uL (0-0.7); Eosinophils % (A) 1 %; Glucose 96 mg/dL (74-99); HCT 40.3 % (34.0-46.0); HGB 13.4 gm/dL (11.4-16.0); Lymphocytes # (A) 2.3 k/uL (1.0-4.8); Lymphocytes % (A) 13 %; MCH 31.2 pg (25.0-35.0); MCHC 33.3 g/dL (31.0-37.0); MCV 93.6 fL (80.0-100.0); Magnesium 2.1 mg/dL (1.6-2.3); Mean Platelet Volume 7.1; Monocytes # (A) 1.5 k/uL (0-1.0); Monocytes % (A) 8 %; Neutrophils # (A) 13.6 k/uL (1.3-7.7); Neutrophils % (A) 77 %; Non-African American GFR(CKD) >90 (>60 ml/min/1.73 sqM); Platelet Count 330 k/uL (150-450); Potassium 3.9 mmol/L (3.5-5.1); RDW 13.5 % (11.5-15.5); Sodium 141 mmol/L (137-145); Total Bilirubin 0.5 mg/dL (0.2-1.3); Total Protein 7.6 g/dL (6.3-8.2); WBC 17.7 k/uL (3.8-10.6)
[2019-08-14 16:42] LABS: INR 0.9 (<1.2); Partial Thromboplastin Time 26.2 sec (22.0-30.0)
[2019-08-14 16:44] LABS: D-Dimer 1.04 mg/L FEU (<0.60)
[2019-08-14] MEDS ORDERED: methylPREDNISolone SOD SUCCI 125 MG/2 ML VIAL IV STA (17:03)
[2019-08-14] MEDS ORDERED: diphenhydrAMINE 50 MG/ML 1 ML VIAL IVP STA (17:03)
[2019-08-14] MEDS ORDERED: FAMOTIDINE 20 MG/2 ML VIAL IV STA (17:04)
--- NOTE | 2019-08-14 17:31 | XR ---
EXAMINATION TYPE: XR chest 2V DATE OF EXAM: 08/14/2019 COMPARISON: 01/01/2019 TECHNIQUE: PA and lateral views submitted. HISTORY: Chest pain FINDINGS: The lungs are clear and there is no pneumothorax, pleural effusion, or focal pneumonia. Postsurgica l change noted. No overt failure. Heart size is stable. Mild hypertrophic change of the vertebral col umn. IMPRESSION: 1. Postsurgical changes with stable appearing interstitium no definite acute interval change relative to the prior exam.
--- NOTE | 2019-08-14 18:10 | CT ---
EXAMINATION TYPE: CT angio chest DATE OF EXAM: 08/14/2019 5:32 PM COMPARISON: None HISTORY: Elevated d-dimer and chest pain. History of cardiac stent. CT DLP: 241.3 mGycm Automated exposure control for dose reduction was used. CONTRAST: CTA scan of the thorax is performed with IV Contrast, patient injected with 100ml mL of Isovue 370, p ulmonary embolism protocol. MIP images are created and reviewed. FINDINGS: No pulmonary arterial filling defect. Stent within the pulmonary trunk is patent. Mild cardiac enlarg ement. No pericardial effusion. Normal course and caliber of the thoracic aorta. No mediastinal adeno laci. The lungs are clear. Tracheobronchial tree is patent. No pleural effusion or pneumothorax. No osseous destructive lesion. Sternotomy wires. Abdominal findings reported separately. IMPRESSION: No pulmonary embolism.
--- NOTE | 2019-08-14 18:24 | CT ---
EXAMINATION TYPE: CT abdomen pelvis w con DATE OF EXAM: 08/14/2019 COMPARISON: CT abdomen/pelvis 09/14/2017 HISTORY: Left lower quadrant abdominal pain. CT DLP: 714.6 mGycm Automated exposure control for dose reduction was used. TECHNIQUE: Helical acquisition of images was performed from the lung bases through the pelvis. CONTRAST: Performed without Oral Contrast and with IV Contrast, patient injected with 100ml mL of Isovue 370. FINDINGS: Geographic hypoattenuation along the falciform ligament, likely relates to focal fatty infiltration. Heterogenous attenuation of the liver. Spleen is not visualized. Adrenal glands and pancreas are with in normal limits. No calcified gallstones. Focal cortical thinning of the inferior pole right kidney likely from scar. Renal enhancement is symm etric and there is no hydronephrosis. Urinary bladder is within normal limits. Anteverted uterus. Intestinal malrotation with absence of retrograde mesenteric duodenum, right-sided predominant locati on of small bowel and left-sided predominant location of large bowel. No evidence of bowel obstructio n. Wall thickening with mucosal hyperenhancement and submucosal edema affecting the terminal ileum th rough rectosigmoid junction; pericolonic flat inflammation without discrete abscess. Loss of typical colonic haustra. Multiple reactive mesenteric lymph nodes. The extent and degree of inflammatory andujar ges is grossly similar to September 2017 comparison. No free air. Normal course and caliber of the aorta. Bilateral coxa valga. There may be mild right hip dysplasia. There are no CT findings of sacroiliitis . IMPRESSION: Pancolonic inflammatory changes extending into the distal ileum favoring inflammatory bowel disease s uch as ulcerative colitis with backwash ileitis over Crohn's disease.
[2019-08-14 18:50] VITALS: BP 130/68; PULSE 83; RESP 20; TEMP 97.9
== END 2019-08-14 18:50 | disposition home or self-care (01) ==
LOC: EC 14:53
DX: K51.00 Ulcerative (chronic) pancolitis without complications (principal); R07.89 Other chest pain; K56.7 Ileus, unspecified; D72.829 Elevated white blood cell count, unspecified; I45.10 Unspecified right bundle-branch block; I25.119 Atherosclerotic heart disease of native coronary artery with unspecified angina pectoris; F17.200 Nicotine dependence, unspecified, uncomplicated; Z88.5 Allergy status to narcotic agent; Z91.048 Other nonmedicinal substance allergy status; Z91.041 Radiographic dye allergy status; Z95.5 Presence of coronary angioplasty implant and graft
CPT/HCPCS: 36415; 85379; 80053; 83690; 83735; 84484; 85025; 85610; 85730; 71046; 71275; 74177; 99284; 96374; 96375 ×2; J1200; J2930; Q9967; 93005

== ENCOUNTER 2019-08-25 13:38 | Emergency (ER) | payer MEDICARE, OTHER ==
[2019-08-25 13:44] VITALS: RESP 18
[2019-08-25] MEDS ORDERED: SODIUM CHLORIDE 0.9% 1,000 ML IV STA (14:27)
[2019-08-25] MEDS ORDERED: KETOROLAC 30 MG/ML 1 ML VIAL IVP STA (14:27)
--- NOTE | 2019-08-25 14:33 | ED ---
General Adult HPI - General Chief complaint: Abdominal Pain Stated complaint: ABd Pain Time Seen by Provider: 08/25/19 14:09 Source: patient, RN notes reviewed Mode of arrival: ambulatory Limitations: no limitations - History of Present Illness Initial comments: 28-year-old female presents to the emergency department for a chief complaint of abdominal pain. Patient states she has had this pain on and off for years. States that it has been worse for the past couple weeks. States that she did make an appropriate with primary care but cannot see them until the end of September. States she is here for a reevaluation as she was seen in the ER last week. States she was given prednisone and this did not seem to help. He fell and the pain increases she does get nausea. She denies diarrhea. She denies melena or hematochezia. Denies vomiting. Sates the pain is generalized in nature. Patient has no other complaints at this time including shortness of breath, chest pain, headache, or visual changes. - Related Data Home Medications Medication Instructions Recorded Confirmed Aspirin [Adult Low Dose Aspirin EC] 81 mg PO DAILY PRN 01/01/19 01/01/19 [id number] 1 tab PO Q4HR PRN 01/01/19 01/01/19 [Excedrin] Previous Rx's Medication Instructions Recorded Acetaminophen Tab [Tylenol] 650 mg PO Q6HR PRN tab 01/04/19 Cefuroxime Axetil [Ceftin] 500 mg PO BID 5 Days #10 tab 01/04/19 Pantoprazole Sodium [Protonix] 40 mg PO DAILY #10 tablet. 01/04/19 Cephalexin [Keflex] 500 mg PO Q6HR 7 Days #28 cap 05/13/19 predniSONE 20 mg PO BID 5 Days #10 tab 08/14/19 Dicyclomine [Bentyl] 20 mg PO TID PRN #20 tablet 08/25/19 Allergies Allergy/AdvReac Type Severity Reaction Status Date / Time hydromorphone [From Dilaudid] Allergy Dyspnea Verified 08/25/19 13:44 Iodinated Contrast Media AdvReac Unknown Verified 08/25/19 13:44 [Iodinated Contrast- Oral and IV Dye] iodine AdvReac Unknown Verified 08/25/19 13:44 Review of Systems ROS Statement: Those systems with pertinent positive or pertinent negative responses have been documented in the HPI. ROS Other: All systems not noted in ROS Statement are negative. Past Medical History Past Medical History: Coronary Artery Disease (CAD), Chest Pain / Angina Additional Past Medical History / Comment(s): tetrology of fallot as , cardiac stent in jul 26, past kidney failure 2016-resolved. seasonal al lergies.colitis History of Any Multi-Drug Resistant Organisms: None Reported Past Surgical History: Heart Catheterization With Stent, Orthopedic Surgery Additional Past Surgical History / Comment(s): heart surgery repair of tetralogy of fallot--infancy (9 days). heart surgery with valve repair at 18 mths. cardiac cath with stent at 2010. left elbow surgery--at 6 yrs of age. oral surgery--at 5 yrs, lt leg debridment 2014(pinned up against a car) Past Anesthesia/Blood Transfusion Reactions: Motion Sickness Date of Last Stent Placement:: jul 26, 2011 Past Psychological History: No Psychological Hx Reported Smoking Status: Current every day smoker Past Alcohol Use History: None Reported Past Drug Use History: None Reported - Past Family History Father Family Medical History: No Reported History Additional Family Medical History / Comment(s): back pain Mother Family Medical History: Cancer, Diabetes Mellitus, Hypertension Additional Family Medical History / Comment(s): MRSA, rt below knee amputation General Exam Limitations: no limitations General appearance: alert, in no apparent distress Head exam: Present: atraumatic, normocephalic, normal inspection Eye exam: Present: normal appearance, PERRL, EOMI. Absent: scleral icterus, conjunctival injection, periorbital swelling ENT exam: Present: normal exam, mucous membranes moist Neck exam: Present: normal inspection, full ROM. Absent: tenderness, meningismus, lymphadenopathy Respiratory exam: Present: normal lung sounds bilaterally. Absent: respiratory distress, wheezes, rales, rhonchi, stridor Cardiovascular Exam: Present: regular rate, normal rhythm, normal heart sounds. Absent: systolic murmur, diastolic murmur, rubs, gallop, clicks GI/Abdominal exam: Present: soft, normal bowel sounds. Absent: distended, tenderness (minimal generalized abdominal tenderness without guarding or rebound.), guarding, rebound, rigid Neurological exam: Present: alert Course Vital Signs 08/25/19 13:42 Temperature 98.5 F Pulse Rate 84 Respiratory 18 Rate Blood Pressure 135/81 O2 Sat by Pulse 98 Oximetry Medical Decision Making - Medical Decision Making Patient had a chest CTA done on 08/14/2019 that was unremarkable. She did have a CT abdomen and pelvis that showed munoz colonic inflammatory changes extending into the distal ileum favoring inflammatory bowel disease such as ulcerative colitis over Crohn's disease. 28-year-old female presents with intermittent abdominal pain for several years. This worsened in the past few weeks. Vitals are stable. Patient is very minimal generalized abdominal tenderness. Abdomen is soft. CBC does show a white blood cell count of 21.9 which is elevated compared to previous white blood cell count of 19. However patient was just on 5 days of steroids in this is likely secondary to steroids. CMP is unremarkable. Urinalysis does not show any obvious evidence of infection. CT from previous visit was reviewed. inflammatory changes are likely the cause of patient's pain. I did not repeat a CAT scan at this point given radiation and unlikelihood of changing given benign abdominal exam. I did order x-ray which showed a nonobstructive bowel gas pattern. This was reviewed by myself and Dr. Albarado. Patient was given Bentyl. I discussed that patient needs to follow up with GI closely for a probable colonoscopy. She states she has not tried to make an appointment with them, only with primary care. Therefore gave her the phone number for this. She will return if she has any worsening symptoms. - Lab Data Result diagrams: 08/25/19 14:43 08/25/19 14:43 Lab Results 08/25/19 08/25/19 08/25/19 Range/Units 14:43 14:43 14:43 WBC 21.9 H (3.8-10.6) k/uL RBC 4.54 (3.80-5.40) m/uL Hgb 13.7 (11.4-16.0) gm/dL Hct 42.6 (34.0-46.0) % MCV 93.8 (80.0-100.0) fL MCH 30.3 (25.0-35.0) pg MCHC 32.2 (31.0-37.0) g/dL RDW 13.7 (11.5-15.5) % Plt Count 388 (150-450) k/uL Neutrophils % 75 % Lymphocytes % 17 % Monocytes % 5 % Eosinophils % 1 % Basophils % 1 % Neutrophils # 16.4 H (1.3-7.7) k/uL Lymphocytes # 3.6 (1.0-4.8) k/uL Monocytes # 1.2 H (0-1.0) k/uL Eosinophils # 0.2 (0-0.7) k/uL Basophils # 0.2 (0-0.2) k/uL Sodium 140 (137-145) mmol/L Potassium 3.4 L (3.5-5.1) mmol/L Chloride 106 (98-107) mmol/L Carbon Dioxide 27 (22-30) mmol/L Anion Gap 7 mmol/L BUN 8 (7-17) mg/dL Creatinine 0.68 (0.52-1.04) mg/dL Est GFR (CKD-EPI)AfAm >90 (>60 ml/min/1.73 sqM) Est GFR (CKD-EPI)NonAf >90 (>60 ml/min/1.73 sqM) Glucose 95 (74-99) mg/dL Calcium 9.4 (8.4-10.2) mg/dL Total Bilirubin 0.4 (0.2-1.3) mg/dL AST 20 (14-36) U/L ALT 15 (4-34) U/L Alkaline Phosphatase 86 (38-126) U/L Total Protein 7.6 (6.3-8.2) g/dL Albumin 4.2 (3.5-5.0) g/dL Amylase 50 (30-110) U/L Lipase 72 (23-300) U/L Urine Color Urine Appearance (Clear) Urine pH (5.0-8.0) Ur Specific [place] (1.001-1.035) Urine Protein (Negative) Urine Glucose (UA) (Negative) Urine Ketones (Negative) Urine Blood (Negative) Urine Nitrite (Negative) Urine Bilirubin (Negative) Urine Urobilinogen (<2.0) mg/dL Ur Leukocyte Esterase (Negative) Urine RBC (0-5) /hpf Urine WBC (0-5) /hpf Ur Squamous Epith Cells (0-4) /hpf Calcium Oxalate Crystal (None) /hpf Amorphous Sediment (None) /hpf Urine Bacteria (None) /hpf Hyaline Casts (0-2) /lpf Urine Mucus (None) /hpf Urine HCG, Qual Not Detected (Not Detectd) 08/25/19 Range/Units 14:43 WBC (3.8-10.6) k/uL RBC (3.80-5.40) m/uL Hgb (11.4-16.0) gm/dL Hct (34.0-46.0) % MCV (80.0-100.0) fL MCH (25.0-35.0) pg MCHC (31.0-37.0) g/dL RDW (11.5-15.5) % Plt Count (150-450) k/uL Neutrophils % % Lymphocytes % % Monocytes % % Eosinophils % % Basophils % % Neutrophils # (1.3-7.7) k/uL Lymphocytes # (1.0-4.8) k/uL Monocytes # (0-1.0) k/uL Eosinophils # (0-0.7) k/uL Basophils # (0-0.2) k/uL Sodium (137-145) mmol/L Potassium (3.5-5.1) mmol/L Chloride (98-107) mmol/L Carbon Dioxide (22-30) mmol/L Anion Gap mmol/L BUN (7-17) mg/dL Creatinine (0.52-1.04) mg/dL Est GFR (CKD-EPI)AfAm (>60 ml/min/1.73 sqM) Est GFR (CKD-EPI)NonAf (>60 ml/min/1.73 sqM) Glucose (74-99) mg/dL Calcium (8.4-10.2) mg/dL Total Bilirubin (0.2-1.3) mg/dL AST (14-36) U/L ALT (4-34) U/L Alkaline Phosphatase (38-126) U/L Total Protein (6.3-8.2) g/dL Albumin (3.5-5.0) g/dL Amylase (30-110) U/L Lipase (23-300) U/L Urine Color Yellow Urine Appearance Cloudy H (Clear) Urine pH 6.0 (5.0-8.0) Ur Specific [place] 1.031 (1.001-1.035) Urine Protein Trace H (Negative) Urine Glucose (UA) Negative (Negative) Urine Ketones Trace H (Negative) Urine Blood Negative (Negative) Urine Nitrite Negative (Negative) Urine Bilirubin Negative (Negative) Urine Urobilinogen 2.0 (<2.0) mg/dL Ur Leukocyte Esterase Negative (Negative) Urine RBC 1 (0-5) /hpf Urine WBC 7 H (0-5) /hpf Ur Squamous Epith Cells 6 H (0-4) /hpf Calcium Oxalate Crystal Many H (None) /hpf Amorphous Sediment Rare H (None) /hpf Urine Bacteria Occasional H (None) /hpf Hyaline Casts 1 (0-2) /lpf Urine Mucus Moderate H (None) /hpf Urine HCG, Qual (Not Detectd) Disposition Clinical Impression: Abdominal pain Disposition: HOME SELF-CARE Condition: Good Instructions (If sedation given, give patient instructions): Abdominal Pain (ED) Additional Instructions: please take medication as needed for pain. This was prescribed to Doming[facility] Marinelli. Please follow-up with GI by calling tomorrow for an appointment. Please return here to the emergency department to develop any worsening symptoms or fevers. Prescriptions: Dicyclomine [Bentyl] 20 mg PO TID PRN #20 tablet PRN Reason: Pain Is patient prescribed a controlled substance at d/c from ED?: No Referrals: Trevor Tamayo MD [STAFF PHYSICIAN] - 1-2 days Time of Disposition: 16:29
[2019-08-25 14:53] LABS: Basophils # (A) 0.2 k/uL (0-0.2); Basophils % (A) 1 %; Eosinophils # (A) 0.2 k/uL (0-0.7); Eosinophils % (A) 1 %; HCT 42.6 % (34.0-46.0); HGB 13.7 gm/dL (11.4-16.0); Lymphocytes # (A) 3.6 k/uL (1.0-4.8); Lymphocytes % (A) 17 %; MCH 30.3 pg (25.0-35.0); MCHC 32.2 g/dL (31.0-37.0); MCV 93.8 fL (80.0-100.0); Mean Platelet Volume 6.9; Monocytes # (A) 1.2 k/uL (0-1.0); Monocytes % (A) 5 %; Neutrophils # (A) 16.4 k/uL (1.3-7.7); Neutrophils % (A) 75 %; Platelet Count 388 k/uL (150-450); RBC 4.54 m/uL (3.80-5.40); RDW 13.7 % (11.5-15.5); WBC 21.9 k/uL (3.8-10.6)
[2019-08-25 15:00] LABS: Amorphous Sediment,Urine Rare /hpf; Appearance,Urine Cloudy (Clear); Bacteria,Urine Occasional /hpf; Bilirubin,Urine Negative (Negative); Blood,Urine Negative (Negative); Calcium Oxalate Crystals,Urine Many /hpf; Color,Urine Yellow; Glucose,Urine (UA) Negative (Negative); Hyaline Casts,Urine 1 /lpf (0-2); Ketones,Urine Trace (Negative); Leukocyte Esterase,Urine Negative (Negative); Mucus,Urine Moderate /hpf; Nitrite,Urine Negative (Negative); Protein,Urine Trace (Negative); RBC,Urine 1 /hpf (0-5); Specific Gravity,Urine 1.031 (1.001-1.035); Squamous Epithelial Cell,Urine 6 /hpf (0-4); WBC,Urine 7 /hpf (0-5)
[2019-08-25 15:04] LABS: ALT 15 U/L (4-34); AST 20 U/L (14-36); African American GFR (CKD) >90 (>60 ml/min/1.73 sqM); Albumin 4.2 g/dL (3.5-5.0); Alkaline Phosphatase 86 U/L (38-126); Amylase 50 U/L (30-110); Anion Gap 7 mmol/L; Blood Urea Nitrogen 8 mg/dL (7-17); Calcium 9.4 mg/dL (8.4-10.2); Carbon Dioxide 27 mmol/L (22-30); Chloride 106 mmol/L (98-107); Glucose 95 mg/dL (74-99); Non-African American GFR(CKD) >90 (>60 ml/min/1.73 sqM); Potassium 3.4 mmol/L (3.5-5.1); Sodium 140 mmol/L (137-145); Total Bilirubin 0.4 mg/dL (0.2-1.3); Total Protein 7.6 g/dL (6.3-8.2)
--- NOTE | 2019-08-25 15:30 | XR ---
EXAMINATION TYPE: XR KUB DATE OF EXAM: 08/25/2019 3:25 PM CLINICAL HISTORY: Abdominal pain upper and unspecified. TECHNIQUE: Two Upright KUB images of the abdomen are obtained. COMPARISON: CT abdomen and pelvis 11 days ago FINDINGS: Some paucity of bowel gas. Gas seen in nondistended stomach. Gas seen in prominent colonic loop left lower quadrant centrally. Some scattered gas in nondistended bowel in the pelvis. No pneumo peritoneum. No suspicious calcification appreciated. The lung bases are clear and the osseous structu res are intact. IMPRESSION: Overall nonspecific but favor nonobstructive bowel gas pattern. Underlying colitis or inflammatory prudencio wel disease noted on recent CT.
[2019-08-25 16:56] VITALS: BP 120/82; PULSE 80; TEMP 98.2
== END 2019-08-25 16:56 | disposition home or self-care (01) ==
LOC: EC 13:38
DX: R10.84 Generalized abdominal pain (principal); R93.3 Abnormal findings on diagnostic imaging of other parts of digestive tract; D72.829 Elevated white blood cell count, unspecified; I25.119 Atherosclerotic heart disease of native coronary artery with unspecified angina pectoris; F17.200 Nicotine dependence, unspecified, uncomplicated; Z79.82 Long term (current) use of aspirin; Z88.5 Allergy status to narcotic agent; Z91.041 Radiographic dye allergy status; Z95.5 Presence of coronary angioplasty implant and graft; Z98.890 Other specified postprocedural states
CPT/HCPCS: 36415; 80053; 82150; 83690; 85025; 81001; 81025; 74018; 99284; 96374; 96361 ×2; J1885

== ENCOUNTER 2019-09-08 13:18 | Emergency (ER) | payer MEDICARE, OTHER ==
[2019-09-08 14:12] LABS: Appearance,Urine Cloudy (Clear); Bacteria,Urine Few /hpf; Bilirubin,Urine Negative (Negative); Blood,Urine Large (Negative); Color,Urine Yellow; Glucose,Urine (UA) Negative (Negative); Ketones,Urine Negative (Negative); Leukocyte Esterase,Urine Trace (Negative); Mucus,Urine Many /hpf; Nitrite,Urine Negative (Negative); PH, Urine 6.5 (5.0-8.0); Protein,Urine 1+ (Negative); RBC,Urine 7 /hpf (0-5); Specific Gravity,Urine 1.026 (1.001-1.035); Squamous Epithelial Cell,Urine 12 /hpf (0-4); WBC,Urine 8 /hpf (0-5)
[2019-09-08] MEDS ORDERED: diphenhydrAMINE 50 MG/ML 1 ML VIAL IVP STA (14:19)
[2019-09-08] MEDS ORDERED: FAMOTIDINE 20 MG/2 ML VIAL IV STA (14:19)
[2019-09-08] MEDS ORDERED: SODIUM CHLORIDE 0.9% 1,000 ML IV STA (14:19)
[2019-09-08] MEDS ORDERED: methylPREDNISolone SOD SUCCI 125 MG/2 ML VIAL IV STA (14:19)
--- NOTE | 2019-09-08 14:41 | ED ---
Abdominal Pain HPI - General Chief Complaint: Abdominal Pain Stated Complaint: groin pain Time Seen by Provider: 09/08/19 13:47 Source: patient Mode of arrival: ambulatory Limitations: no limitations - History of Present Illness Initial Comments: Patient is a 28-year-old female presenting with abdominal pain has been increasing over the past week. Patient states she has a history of chronic abdominal pain that is mostly controlled with the use of Bentyl. Her GI doctor is Dr. Isaac. Patient states the last week her pain has increased and she descr ibes the pain as sharp, shooting, and intermittent. Patient does admit to nausea and 2 episodes of vomiting with this. Patient denies fever, diarrhea. She denies chest pain, shortness of breath. She has no other complaints at this time. Upon arrival to the ER, her vital signs are stable. - Related Data Home Medications Medication Instructions Recorded Confirmed Aspirin [Adult Low Dose Aspirin EC] 81 mg PO DAILY PRN 01/01/19 01/01/19 [id number] 1 tab PO Q4HR PRN 01/01/19 01/01/19 [Excedrin] Previous Rx's Medication Instructions Recorded Acetaminophen Tab [Tylenol] 650 mg PO Q6HR PRN tab 01/04/19 Cefuroxime Axetil [Ceftin] 500 mg PO BID 5 Days #10 tab 01/04/19 Pantoprazole Sodium [Protonix] 40 mg PO DAILY #10 tablet. 01/04/19 Cephalexin [Keflex] 500 mg PO Q6HR 7 Days #28 cap 05/13/19 predniSONE 20 mg PO BID 5 Days #10 tab 08/14/19 Dicyclomine [Bentyl] 20 mg PO TID PRN #20 tablet 08/25/19 Allergies Allergy/AdvReac Type Severity Reaction Status Date / Time hydromorphone [From Dilaudid] Allergy Dyspnea Verified 09/08/19 13:31 Iodinated Contrast Media AdvReac Unknown Verified 09/08/19 13:31 [Iodinated Contrast- Oral and IV Dye] iodine AdvReac Unknown Verified 09/08/19 13:31 Review of Systems ROS Statement: Those systems with pertinent positive or pertinent negative responses have been documented in the HPI. ROS Other: All systems not noted in ROS Statement are negative. Past Medical History Past Medical History: Coronary Artery Disease (CAD), Chest Pain / Angina Additional Past Medical History / Comment(s): tetrology of fallot as infant, cardiac stent in jul 26, past kidney failure 2016-resolved. seasonal allergies.colitis History of Any Multi-Drug Resistant Organisms: None Reported Past Surgical History: Heart Catheterization With Stent, Orthopedic Surgery Additional Past Surgical History / Comment(s): heart surgery repair of tetralogy of fallot--infancy (9 days). heart surgery with valve repair at 18 mths. cardiac cath with stent at 2010. left elbow surgery--at 6 yrs of age. oral henna kristyn--at 5 yrs, lt leg debridment 2014(pinned up against a car) Past Anesthesia/Blood Transfusion Reactions: Motion Sickness Date of Last Stent Placement:: jul 26, 2011 Past Psychological History: No Psychological Hx Reported Smoking Status: Current every day smoker Past Alcohol Use History: None Reported Past Drug Use History: None Reported - Past Family History Father Family Medical History: No Reported History Additional Family Medical History / Comment(s): back pain Mother Family Medical History: Cancer, Diabetes Mellitus, Hypertension Additional Family Medical History / Comment(s): MRSA, rt below knee amputation General Exam - General Exam Comments Initial Comments: GENERAL: Well-appearing, well-nourished and in no acute distress. HEAD: Atraumatic, normocephalic. EYES: Pupils equal round and reactive to light, extraocular movements intact, sclera anicteric, conjunctiva are normal. ENT: TMs normal, nares patent, oropharynx clear without exudates. Moist mucous membranes. NECK: Normal range of motion, supple without lymphadenopathy or JVD. LUNGS: Breath sounds clear to auscultation bilaterally and equal. No wheezes rales or rhonchi. HEART: Regular rate and rhythm without murmurs, rubs or gallops. ABDOMEN: Tender to palpation left upper and lower quadrant, with mild guarding. Soft, normoactive bowel sounds. No masses appreciated. : Deferred EXTREMITIES: Normal range of motion, no pitting or edema. No clubbing or cyanosis. NEUROLOGICAL: Normal speech, normal gait. PSYCH: Normal mood, normal affect. SKIN: Warm, Dry, normal turgor, no rashes or lesions noted. Limitations: no limitations Course Vital Signs 09/08/19 09/08/19 13:29 16:08 Temperature 98.1 F 98.2 F Pulse Rate 86 62 Respiratory 18 20 Rate Blood Pressure 120/79 116/78 O2 Sat by Pulse 97 98 Oximetry Medical Decision Making - Medical Decision Making Patient is a 28-year-old female presenting with left upper and lower quadrant pain has been increasing over the past week. Vital signs are stable upon arrival. Slight leukocytosis which is chronic in nature, rest the lab work is unremarkable. UA shows no signs of infection. CT the abdomen shows large bowel wall thickening and minimal surrounding fat stranding consistent with inflammatory bowel disease. No other acute findings. I recommended a pelvic exam however patient declined at this time. I discussed these findings with the patient. I suggested that she follow-up with her GI doctor. Patient is requesting another referral. Patient will continue with Bentyl. Patient can have a trial of clear liquid diet for a day or 2 to see if symptoms decrease. Patient is agreement with this plan of care. Return parameters were discussed with the patient she verbalized understanding. - Lab Data Result diagrams: 09/08/19 14:35 09/08/19 14:35 Lab Results 09/08/19 09/08/19 09/08/19 Range/Units 13:49 13:49 14:35 WBC (3.8-10.6) k/uL RBC (3.80-5.40) m/uL Hgb (11.4-16.0) gm/dL Hct (34.0-46.0) % MCV (80.0-100.0) fL MCH (25.0-35.0) pg MCHC (31.0-37.0) g/dL RDW (11.5-15.5) % Plt Count (150-450) k/uL Neutrophils % % Lymphocytes % % Monocytes % % Eosinophils % % Basophils % % Neutrophils # (1.3-7.7) k/uL Lymphocytes # (1.0-4.8) k/uL Monocytes # (0-1.0) k/uL Eosinophils # (0-0.7) k/uL Basophils # (0-0.2) k/uL PT (9.0-12.0) sec INR (<1.2) APTT (22.0-30.0) sec Sodium 140 (137-145) mmol/L Potassium 3.9 (3.5-5.1) mmol/L Chloride 108 H (98-107) mmol/L Carbon Dioxide 26 (22-30) mmol/L Anion Gap 6 mmol/L BUN 5 L (7-17) mg/dL Creatinine 0.65 (0.52-1.04) mg/dL Est GFR (CKD-EPI)AfAm >90 (>60 ml/min/1.73 sqM) Est GFR (CKD-EPI)NonAf >90 (>60 ml/min/1.73 sqM) Glucose 91 (74-99) mg/dL Plasma Lactic Acid Gregorio (0.7-2.0) mmol/L Calcium 9.3 (8.4-10.2) mg/dL Total Bilirubin 0.4 (0.2-1.3) mg/dL AST 18 (14-36) U/L ALT 12 (4-34) U/L Alkaline Phosphatase 97 (38-126) U/L Total Protein 7.3 (6.3-8.2) g/dL Albumin 3.8 (3.5-5.0) g/dL Amylase 34 (30-110) U/L Lipase 46 (23-300) U/L Urine Color Yellow Urine Appearance Cloudy H (Clear) Urine pH 6.5 (5.0-8.0) Ur Specific [place] 1.026 (1.001-1.035) Urine Protein 1+ H (Negative) Urine Glucose (UA) Negative (Negative) Urine Ketones Negative (Negative) Urine Blood Large H (Negative) Urine Nitrite Negative (Negative) Urine Bilirubin Negative (Negative) Urine Urobilinogen 2.0 (<2.0) mg/dL Ur Leukocyte Esterase Trace H (Negative) Urine RBC 7 H (0-5) /hpf Urine WBC 8 H (0-5) /hpf Ur Squamous Epith Cells 12 H (0-4) /hpf Urine Bacteria Few H (None) /hpf Urine Mucus Many H (None) /hpf Urine HCG, Qual Not Detected (Not Detectd) 09/08/19 09/08/19 09/08/19 Range/Units 14:35 14:35 14:35 WBC 18.3 H (3.8-10.6) k/uL RBC 4.39 (3.80-5.40) m/uL Hgb 12.8 (11.4-16.0) gm/dL Hct 39.9 (34.0-46.0) % MCV 90.9 (80.0-100.0) fL MCH 29.3 (25.0-35.0) pg MCHC 32.2 (31.0-37.0) g/dL RDW 13.5 (11.5-15.5) % Plt Count 435 (150-450) k/uL Neutrophils % 77 % Lymphocytes % 13 % Monocytes % 6 % Eosinophils % 2 % Basophils % 0 % Neutrophils # 14.0 H (1.3-7.7) k/uL Lymphocytes # 2.5 (1.0-4.8) k/uL Monocytes # 1.2 H (0-1.0) k/uL Eosinophils # 0.3 (0-0.7) k/uL Basophils # 0.1 (0-0.2) k/uL PT 10.2 (9.0-12.0) sec INR 0.9 (<1.2) APTT 25.7 (22.0-30.0) sec Sodium (137-145) mmol/L Potassium (3.5-5.1) mmol/L Chloride (98-107) mmol/L Carbon Dioxide (22-30) mmol/L Anion Gap mmol/L BUN (7-17) mg/dL Creatinine (0.52-1.04) mg/dL Est GFR (CKD-EPI)AfAm (>60 ml/min/1.73 sqM) Est GFR (CKD-EPI)NonAf (>60 ml/min/1.73 sqM) Glucose (74-99) mg/dL Plasma Lactic Acid Gregorio 0.5 L (0.7-2.0) mmol/L Calcium (8.4-10.2) mg/dL Total Bilirubin (0.2-1.3) mg/dL AST (14-36) U/L ALT (4-34) U/L Alkaline Phosphatase (38-126) U/L Total Protein (6.3-8.2) g/dL Albumin (3.5-5.0) g/dL Amylase (30-110) U/L Lipase (23-300) U/L Urine Color Urine Appearance (Clear) Urine pH (5.0-8.0) Ur Specific [place] (1.001-1.035) Urine Protein (Negative) Urine Glucose (UA) (Negative) Urine Ketones (Negative) Urine Blood (Negative) Urine Nitrite (Negative) Urine Bilirubin (Negative) Urine Urobilinogen (<2.0) mg/dL Ur Leukocyte Esterase (Negative) Urine RBC (0-5) /hpf Urine WBC (0-5) /hpf Ur Squamous Epith Cells (0-4) /hpf Urine Bacteria (None) /hpf Urine Mucus (None) /hpf Urine HCG, Qual (Not Detectd) Disposition Clinical Impression: Abdominal pain, Inflammatory bowel disease Disposition: HOME SELF-CARE Condition: Stable Instructions (If sedation given, give patient instructions): Abdominal Pain (ED) Additional Instructions: Please return to the Emergency Department if symptoms worsen or any other concerns. Follow up with GI as discussed. Continue with Deny. Is patient prescribed a controlled substance at d/c from ED?: No Referrals: None,Stated [Primary Care Provider] - 1-2 days Trevor Tamayo MD [STAFF PHYSICIAN] - 1-2 days
[2019-09-08 14:50] LABS: Basophils # (A) 0.1 k/uL (0-0.2); Basophils % (A) 0 %; Eosinophils # (A) 0.3 k/uL (0-0.7); Eosinophils % (A) 2 %; HCT 39.9 % (34.0-46.0); HGB 12.8 gm/dL (11.4-16.0); Lymphocytes # (A) 2.5 k/uL (1.0-4.8); Lymphocytes % (A) 13 %; MCH 29.3 pg (25.0-35.0); MCHC 32.2 g/dL (31.0-37.0); MCV 90.9 fL (80.0-100.0); Mean Platelet Volume 6.6; Monocytes # (A) 1.2 k/uL (0-1.0); Monocytes % (A) 6 %; Neutrophils % (A) 77 %; Platelet Count 435 k/uL (150-450); RBC 4.39 m/uL (3.80-5.40); RDW 13.5 % (11.5-15.5); WBC 18.3 k/uL (3.8-10.6)
[2019-09-08 15:01] LABS: ALT 12 U/L (4-34); AST 18 U/L (14-36); African American GFR (CKD) >90 (>60 ml/min/1.73 sqM); Albumin 3.8 g/dL (3.5-5.0); Alkaline Phosphatase 97 U/L (38-126); Amylase 34 U/L (30-110); Anion Gap 6 mmol/L; Blood Urea Nitrogen 5 mg/dL (7-17); Calcium 9.3 mg/dL (8.4-10.2); Carbon Dioxide 26 mmol/L (22-30); Chloride 108 mmol/L (98-107); Glucose 91 mg/dL (74-99); Non-African American GFR(CKD) >90 (>60 ml/min/1.73 sqM); Potassium 3.9 mmol/L (3.5-5.1); Sodium 140 mmol/L (137-145); Total Bilirubin 0.4 mg/dL (0.2-1.3); Total Protein 7.3 g/dL (6.3-8.2)
[2019-09-08 15:02] LABS: INR 0.9 (<1.2); Partial Thromboplastin Time 25.7 sec (22.0-30.0); Prothrombin Time 10.2 sec (9.0-12.0)
--- NOTE | 2019-09-08 15:54 | CT ---
EXAMINATION TYPE: CT abdomen pelvis w con DATE OF EXAM: 09/08/2019 COMPARISON: 08/14/2019 HISTORY: Abdomen and groin pain CT DLP: 713.8 mGycm Automated exposure control for dose reduction was used. CONTRAST: Performed with IV Contrast, patient injected with 100 mL of Isovue 300. Images were obtained from the diaphragm to the floor the pelvis with IV contrast. Lung bases are clear. There is no pleural effusion. Heart is enlarged. There is no pericardial effusi on. Stomach is intact. Spleen is absent. Liver shows no focal defect. Bile ducts are not dilated. Gal lbladder has possible small calcified gallstone. There is no evidence of pancreatic mass. There is no adrenal mass. Kidneys show satisfactory contrast opacification. There is no hydronephrosi s. Ureters are not dilated. There is no retroperitoneal adenopathy. Bladder distends smoothly. Uterus is anteverted. There is no free fluid in the pelvis. There is diffuse wall thickening of the entire large bowel. There is no evidence of a mechanical eliezer l obstruction. There is mild wall thickening of distal ileum. There is no ascites. There is no free a ir. There is no inguinal hernia. Bladder distends smoothly. There is mildly distended loop of distal ileum that measures 3 cm. Lumbar spine is intact. Bony pelvis appears intact. There is shallow right acetabulum consistent with mild hip dysplasia. There is no evidence of an abscess. IMPRESSION: Large bowel wall thickening and minimal surrounding fat stranding consistent with inflammatory bowel disease. There is also some mild involvement of the distal ileum. Compared to last exam there is mabel ring of free fluid in the pelvis. Changes in the distal ileum consistent with ileus and inflammatory bowel disease unchanged.
[2019-09-08 16:56] VITALS: BP 120/78; PULSE 65; RESP 18; TEMP 98.3
== END 2019-09-08 16:56 | disposition home or self-care (01) ==
LOC: EC 13:18
DX: K52.9 Noninfective gastroenteritis and colitis, unspecified (principal); I25.119 Atherosclerotic heart disease of native coronary artery with unspecified angina pectoris; F17.200 Nicotine dependence, unspecified, uncomplicated; Z88.5 Allergy status to narcotic agent; Z91.041 Radiographic dye allergy status; Z91.048 Other nonmedicinal substance allergy status; Z95.5 Presence of coronary angioplasty implant and graft
CPT/HCPCS: 36415; 80053; 82150; 83605; 83690; 85025; 85610; 85730; 81001; 81025; 74177; 99284; 96374; 96375 ×2; 96361; J1200; J2930; Q9967

== ENCOUNTER → 2019-10-01 | Outpatient (CLI) | payer MEDICARE, OTHER ==
[2019-10-01 11:21] LABS: Basophils # (A) 0.1 k/uL (0-0.2); Basophils % (A) 0 %; Eosinophils # (A) 0.1 k/uL (0-0.7); Eosinophils % (A) 1 %; HCT 40.4 % (34.0-46.0); HGB 12.4 gm/dL (11.4-16.0); Lymphocytes # (A) 2.3 k/uL (1.0-4.8); Lymphocytes % (A) 15 %; MCH 28.8 pg (25.0-35.0); MCHC 30.8 g/dL (31.0-37.0); MCV 93.6 fL (80.0-100.0); Mean Platelet Volume 6.7; Monocytes % (A) 6 %; Neutrophils # (A) 11.6 k/uL (1.3-7.7); Neutrophils % (A) 75 %; Platelet Count 424 k/uL (150-450); RBC 4.31 m/uL (3.80-5.40); RDW 14.6 % (11.5-15.5); WBC 15.4 k/uL (3.8-10.6)
[2019-10-01 12:25] LABS: Erythrocyte Sedimentation Rate 31 mm/hr (0-20)
[2019-10-01 19:16] LABS: Gliadin AB IgA, Deaminated NEGATIVE (NEGATIVE); Gliadin AB IgA, Unit 0.4 U/mL; Gliadin AB IgG, Deaminated NEGATIVE (NEGATIVE)
== END | disposition home or self-care (01) ==
LOC: LABWHC1 10:53
PROVIDERS: ATTEND Nurse Practitioner
DX: K52.9 Noninfective gastroenteritis and colitis, unspecified (principal); R10.13 Epigastric pain
CPT/HCPCS: 36415; 83516; 83993; 85025; 85652; 86140

== ENCOUNTER → 2019-10-07 | Day surgery (SDC) | payer MEDICARE, OTHER ==
[2019-10-05 14:50] VITALS: BMI 22.3
[~2019-10-07] MED LIST: LACTATED RINGERS 1,000 ML IV SCH; LIDOCAINE 1% 20 ML VIAL (10MG/ML) FOR IV START INTRADERMA PRN; LIDOCAINE 1% INJ 10MG/ML (20 ML MDV) ONE; MIDAZOLAM 2 MG/2 ML VIAL ONE; PROPOFOL 10 MG/ML 20 ML VIAL IV ONE
[2019-10-07 09:53] VITALS: TEMP 97.2
[2019-10-07 11:37] VITALS: RESP 17
--- NOTE | 2019-10-07 11:39 | P.PCN ---
Date of Procedure: 10/07/19 Description of Procedure: Brief history: Patient is a pleasant scheduled for an elective upper endoscopy as well as colonoscopy as a part of evaluation of epigastric pain and colitis. Patient has been scoped in the past with a diagnosis of Crohn's disease. Currently not on any medical therapy. She is being evaluated for epigastric abdominal pain and history of colitis. Procedure performed: Esophagogastroduodenoscopy with biopsy Colonoscopy with biopsy Estimated blood loss: Minimal. Preoperative diagnosis: Epigastric abdominal pain, colitis [place] [facility] [place]: After informed consent was obtained from the patient was brought into the endoscopy unit and IV sedation was administered by anesthesia under continuous monitoring. Initially upper endoscopy was done. The Olympus GF 190 video endoscope was inserted into the mouth and esophagus intubated without any d ifficulty and was gradually advanced into the stomach and duodenum and carefully examined. The bulb and second part of the duodenum appeared normal, with biopsies taken. The scope was then withdrawn into the stomach adequately insufflated with air and upon careful examination the antrum and body, cardia and fundus appeared normal, except for some mild scattered erythema in the antrum and body suggestive of mild gastritis with biopsies taken. The scope was then withdrawn into the esophagus. The GE junction was located at 38 cm to the incisors, and biopsied. It appeared regular with no erythema erosions or ulcerations. Rest of the esophagus appeared normal, with metastatic esophageal biopsies taken. Patient tolerated the procedure well. At this time the patient continued to remain sedation. Initial digital rectal examination was normal. Olympus CF 190 video colonoscope was then inserted into the rectum and gradually advanced to the cecum without any difficulty. Careful examination was performed as the scope was gradually being withdrawn. The prep was excellent. The cecum, ascending colon, transverse colon, descending colon, sigmoid colon and rectum appeared were significant for mild erythema in the rectum and cecum and moderate to severe inflammation with nodularity and pseudopolyps in the rest of the colon consistent with moderate to severe colitis. Random biopsies were taken of the right colon, transverse colon, left colon and rectum. The terminal ileum was also intubated and appeared normal with biopsies taken. Retroflexion was performed in the rectum and no lesions were noted. Patient tolerated the procedure well. Impression: 1. Mild gastritis antrum and body biopsied. Biopsies of the duodenum, GE junction and midesophagus. 2. Moderate to severe colitis with erythema, friability, nodularity and pseudopolyps in the ascending colon, transverse colon, descending colon and sigmoid. More mildly active disease with some erythema in the cecum and rectum. The terminal ileum appeared normal. Biopsies of the terminal ileum, right colon, transverse colon, left colon and rectum. Recommendations: Findings of this examination were discussed with the patient as well as her father. Okay to resume diet. Okay to resume medications. Follow-up in gastroenterology clinic for results of biopsies. Would recommend initiation of therapy based on patient's preference, she would be a candidate for biologic therapy if she is agreeable.
[2019-10-07 11:50] VITALS: BP 108/69; PULSE 46
== END ==
LOC: ORWHC2ENDO 09:32
PROVIDERS: ATTEND Internal Medicine
DX: K29.80 Duodenitis without bleeding (principal); K29.50 Unspecified chronic gastritis without bleeding; K31.9 Disease of stomach and duodenum, unspecified; K21.0 Gastro-esophageal reflux disease with esophagitis; K63.89 Other specified diseases of intestine; K52.9 Noninfective gastroenteritis and colitis, unspecified; K50.90 Crohn's disease, unspecified, without complications; I25.10 Atherosclerotic heart disease of native coronary artery without angina pectoris; K08.89 Other specified disorders of teeth and supporting structures; F17.200 Nicotine dependence, unspecified, uncomplicated; Z88.5 Allergy status to narcotic agent; Z91.041 Radiographic dye allergy status; Z91.048 Other nonmedicinal substance allergy status; Z79.82 Long term (current) use of aspirin; Z79.899 Other long term (current) drug therapy; Z98.890 Other specified postprocedural states; Z95.5 Presence of coronary angioplasty implant and graft; Z87.448 Personal history of other diseases of urinary system; Z87.898 Personal history of other specified conditions; Z87.74 Personal history of (corrected) congenital malformations of heart and circulatory system
CPT/HCPCS: 81025; 88305; 45380; 43239; J2250; J2001; J2704

== ENCOUNTER → 2020-02-16 | Outpatient (CLI) | payer MEDICARE, OTHER ==
[2020-02-16 14:34] LABS: Basophils # (A) 0.1 k/uL (0-0.2); Basophils % (A) 1 %; Eosinophils # (A) 0.1 k/uL (0-0.7); Eosinophils % (A) 1 %; HGB 12.9 gm/dL (11.4-16.0); Lymphocytes # (A) 3.7 k/uL (1.0-4.8); Lymphocytes % (A) 21 %; MCH 32.1 pg (25.0-35.0); MCHC 33.1 g/dL (31.0-37.0); MCV 97.1 fL (80.0-100.0); Monocytes # (A) 1.1 k/uL (0-1.0); Monocytes % (A) 7 %; Neutrophils # (A) 11.9 k/uL (1.3-7.7); Neutrophils % (A) 69 %; Platelet Count 324 k/uL (150-450); RBC 4.01 m/uL (3.80-5.40); RDW 14.7 % (11.5-15.5); WBC 17.3 k/uL (3.8-10.6)
[2020-02-16 16:10] LABS: Erythrocyte Sedimentation Rate 17 mm/hr (0-20)
[2020-02-17 04:37] LABS: ALT 21 U/L (8-44); AST 21 U/L (13-35); African American GFR (CKD) 116.3 (60.0-200.0); Albumin/Globulin Ratio 1.75 (1.60-3.17); Alkaline Phosphatase 63 U/L (41-126); BUN/Creat Ratio 11.25 Ratio (12.00-20.00); C Reactive Protein <0.4 mg/dL (0.0-0.8); Carbon Dioxide 24.7 mmol/L (21.6-31.8); Chloride 108 mmol/L (96-109); Globulin 2.4 g/dL (1.6-3.3); Glucose 68 mg/dL (70-110); Non-African American GFR(CKD) 100.3 (60.0-200.0); Potassium 3.7 mmol/L (3.5-5.5); Sodium 138 mmol/L (135-145); Total Bilirubin 0.5 mg/dL (0.3-1.2); Total Protein 6.6 g/dL (6.2-8.2)
[2020-02-17 04:40] LABS: Hepatitis B Surface Antigen Non-Reactive (Non-Reactive); Hepatitis C IgG Antibody Non-Reactive (Non-Reactive)
== END | disposition home or self-care (01) ==
LOC: LABWHC1 13:48
PROVIDERS: ATTEND Nurse Practitioner
DX: K50.90 Crohn's disease, unspecified, without complications (principal)
CPT/HCPCS: 36415; 80053; 85025; 85652; 86140; 86480; 86704; 86803; 87340

== ENCOUNTER → 2022-08-14 | Outpatient (CLI) | payer MEDICARE, OTHER ==
--- NOTE | 2022-08-14 15:27 | XR ---
EXAMINATION TYPE: XR chest 2V DATE OF EXAM: 08/14/2022 2:51 PM COMPARISON: Chest radiographs from 08/14/2019 TECHNIQUE: XR chest 2V Frontal and lateral views of the chest. CLINICAL INDICATION:Female, 31 years old with history of R09.81, R05.3, F17.200; FINDINGS: Lungs/Pleura: There is no evidence of pleural effusion, focal consolidation, or pneumothorax. Pulmonary vascularity: Unremarkable. Heart/mediastinum: Cardiomediastinal silhouette is unremarkable. Post mitral valve repair changes. Musculoskeletal: No acute osseous pathology. IMPRESSION: No acute cardiopulmonary disease/process.
== END | disposition home or self-care (01) ==
LOC: RADXRMAIN 14:41
PROVIDERS: ATTEND Nurse Practitioner Family
DX: R09.81 Nasal congestion (principal); R05.3 Chronic cough; F17.200 Nicotine dependence, unspecified, uncomplicated
CPT/HCPCS: 71046

== ENCOUNTER → 2023-04-18 | Outpatient (CLI) | payer MEDICARE, OTHER ==
[2023-04-18 20:21] LABS: ALT 22 U/L (8-44); AST 20 U/L (13-35); Albumin 4.4 d/dL (3.8-4.9); Albumin/Globulin Ratio 1.83 Ratio (1.60-3.17); Alkaline Phosphatase 72 U/L (41-126); BUN/Creat Ratio 11.38 Ratio (12.00-20.00); Blood Urea Nitrogen 9.1 mg/dL (9.0-27.0); C Reactive Protein <0.30 mg/dL (0.00-0.80); Calcium 9.5 mg/dL (8.7-10.3); Carbon Dioxide 25.2 mmol/L (21.6-31.8); Chloride 106 mmol/L (96-109); Globulin 2.4 d/dL (1.6-3.3); Glucose 96 mg/dL (70-110); Potassium 4.4 mmol/L (3.5-5.5); Sodium 141 mmol/L (135-145); Total Bilirubin 0.2 mg/dL (0.3-1.2); Total Protein 6.8 d/dL (6.2-8.2)
[2023-04-18 20:26] LABS: Immunoglobulin E 37.4 IU/mL (0.00-114.00)
[2023-04-18 20:27] LABS: Basophils # (A) 0.09 X 10*3/uL (0.00-0.10); Basophils % (A) 0.9 %; Eosinophils # (A) 0.22 X 10*3/uL (0.04-0.35); Eosinophils % (A) 2.1 %; HCT 37.4 % (37.2-46.3); HGB 13.8 d/dL (12.0-15.0); Lymphocytes # (A) 3.47 X 10*3/uL (0.90-5.00); Lymphocytes % (A) 33.8 %; MCH 35.3 pg (27.0-32.0); MCHC 36.9 d/dL (32.0-37.0); MCV 95.7 FL (80.0-97.0); Mean Platelet Volume 10.5 FL (9.5-12.2); Monocytes # (A) 0.91 X 10*3/uL (0.20-1.00); Monocytes % (A) 8.9 %; NRBC Per 100 WBC 0 X 10*3/uL (0.00-0.01); Neutrophils # (A) 5.55 X 10*3/uL (1.80-7.70); Neutrophils % (A) 53.9 %; Platelet Count 307 X 10*3/uL (140-440); RBC 3.91 X 10*6/uL (4.10-5.20); RDW 14.6 % (11.5-14.5); WBC 10.28 X 10*3/uL (4.50-10.00)
== END | disposition home or self-care (01) ==
LOC: LABWHC1 15:27
PROVIDERS: ATTEND Allergy & Immunology Allergy
DX: D83.9 Common variable immunodeficiency, unspecified (principal); J45.20 Mild intermittent asthma, uncomplicated; J45.909 Unspecified asthma, uncomplicated
CPT/HCPCS: 36415; 80053; 82103; 82104; 82784; 82785; 82787; 85025; 86140; 86255

== ENCOUNTER → 2024-08-04 | Outpatient (CLI) | payer MEDICARE, OTHER ==
[2024-08-04 15:56] LABS: Basophils # (A) 0.07 X 10*3/uL (0.00-0.10); Basophils % (A) 0.6 %; Eosinophils # (A) 0.09 X 10*3/uL (0.04-0.35); Eosinophils % (A) 0.8 %; HCT 41.7 % (37.2-46.3); HGB 13.6 g/dL (12.0-15.0); Lymphocytes # (A) 2.75 X 10*3/uL (0.90-5.00); Lymphocytes % (A) 25.1 %; MCH 31.2 pg (27.0-32.0); MCHC 32.6 g/dL (32.0-37.0); MCV 95.6 FL (80.0-97.0); Mean Platelet Volume 9.9 FL (9.5-12.2); Monocytes # (A) 1.04 X 10*3/uL (0.20-1.00); Monocytes % (A) 9.5 %; NRBC Per 100 WBC 0 X 10*3/uL (0.00-0.01); Neutrophils # (A) 6.95 X 10*3/uL (1.80-7.70); Neutrophils % (A) 63.5 %; Platelet Count 355 X 10*3/uL (140-440); RBC 4.36 X 10*6/uL (4.10-5.20); RDW 15.4 % (11.5-14.5); WBC 10.95 X 10*3/uL (4.50-10.00)
[2024-08-04 16:33] LABS: Hepatitis B Surface Antigen Nonreactive (Nonreactive)
[2024-08-04 16:45] LABS: ALT 11 U/L (8-44); AST 17 U/L (13-35); Albumin 4.3 g/dL (3.8-4.9); Albumin/Globulin Ratio 1.54 Ratio (1.60-3.17); Alkaline Phosphatase 81 U/L (41-126); Blood Urea Nitrogen 7.2 mg/dL (9.0-27.0); Calcium 9.5 mg/dL (8.7-10.3); Carbon Dioxide 22.9 mmol/L (21.6-31.8); Chloride 108 mmol/L (96-109); Globulin 2.8 g/dL (1.6-3.3); Glucose 93 mg/dL (70-110); Potassium 4.1 mmol/L (3.5-5.5); Sodium 140 mmol/L (135-145); Total Bilirubin 0.3 mg/dL (0.3-1.2); Total Protein 7.1 g/dL (6.2-8.2)
== END | disposition home or self-care (01) ==
LOC: LABWHC1 10:52
PROVIDERS: ATTEND Internal Medicine Gastroenterology
DX: K50.90 Crohn's disease, unspecified, without complications (principal)
CPT/HCPCS: 36415; 80053; 85025; 86480; 86704; 87340

== ENCOUNTER 2024-11-26 13:17 | Day surgery (SDC) | payer MEDICARE, OTHER ==
[2024-11-25 11:44] VITALS: BMI 23.4
[~2024-11-26 13:17] MED LIST changes: -LACTATED RINGERS 1,000 ML IV SCH; +LIDOCAINE 1% (10MG/ML) FOR IV START INTRADERMA PRN; -LIDOCAINE 1% 20 ML VIAL (10MG/ML) FOR IV START INTRADERMA PRN; -LIDOCAINE 1% INJ 10MG/ML (20 ML MDV) ONE; -MIDAZOLAM 2 MG/2 ML VIAL ONE; -PROPOFOL 10 MG/ML 20 ML VIAL IV ONE
[2024-11-26] MEDS: IV FLUID CONTINUATION 1,000 ML IV ONE (14:01)
[2024-11-26 14:02] VITALS: TEMP 97.3
[2024-11-26] MEDS: LACTATED RINGERS 1,000 ML IV SCH (14:11)
[2024-11-26] MEDS ORDERED: PROPOFOL 10 MG/ML 20 ML VIAL IV ONE (14:41)
--- NOTE | 2024-11-26 14:57 | P.PCN ---
Date of Procedure: 11/26/24 Procedure(s) Performed: BRIEF HISTORY: Patient is a 34-year-old pleasant white female scheduled for an elective colonoscopy as a part of 70s of lungs and history of both colitis diagnosed in 2012. She is maintained on Stelara injections every 8 weeks and in clinical remission. Last colonoscopy was in December 2021. PROCEDURE PERFORMED: Colonoscopy with random biopsies. PREOPERATIVE DIAGNOSIS: Longstanding history of Crohn's colitis. IV sedation per Anesthesia. PROCEDURE: After informed consent was obtained, the patient, was brought into the endoscopy unit. IV sedation was administered by Anesthesia under continuous monitoring. Digital rectal examination was normal. Initially the Olympus CF-160 flexible video colonoscope was then inserted in the rectum, gradually advanced into the cecum without any difficulty. Careful examination was performed as the scope was gradually being withdrawn. Ileocecal valve and the appendiceal orifice were visualized and appeared normal. Prep was excellent. Terminal ileum appeared normal. Mucosa of the cecum, ascending colon, appeared normal. There was mild mucosal erythema and friability noted in the transverse colon, descending colon, sigmoid colon consistent with mild colitis and biopsies were done from this area. The rectum appeared normal. Retroflexion was performed in the rectum and no lesions were seen. The patient tolerated the procedure well. IMPRESSION: Mild patchy erythema was noted in the descending colon and transverse colon with friable mucosa consistent with mild active colitis Rest of the colon appeared normal Terminal ileum appeared normal RECOMMENDATIONS: Findings of this examination were discussed with the patient as well as his family. She was advised to follow-up with the biopsy results. If the biopsy does not show any evidence of dysplasia she can have repeat colonoscopy every 2 years..
[2024-11-26 15:08] VITALS: RESP 16
[2024-11-26 15:19] VITALS: BP 125/64; PULSE 54
== END 2024-11-26 15:49 | disposition home or self-care (01) ==
LOC: ORWHC2ENDO 13:17
PROVIDERS: ATTEND Internal Medicine Gastroenterology
DX: K50.10 Crohn's disease of large intestine without complications (principal); I25.10 Atherosclerotic heart disease of native coronary artery without angina pectoris; Z95.5 Presence of coronary angioplasty implant and graft; J45.909 Unspecified asthma, uncomplicated; F17.210 Nicotine dependence, cigarettes, uncomplicated; Z79.69 Long term (current) use of other immunomodulators and immunosuppressants; Z79.899 Other long term (current) drug therapy; Z87.74 Personal history of (corrected) congenital malformations of heart and circulatory system; Z88.5 Allergy status to narcotic agent; Z91.041 Radiographic dye allergy status
CPT/HCPCS: 45380; 81025; 88305; J2704